=== PATIENT | female | born 1990 | race Caucasian/White ===

== ENCOUNTER 2016-10-05 17:46 | Emergency (ER) | payer OTHER ==
[2016-10-05 18:58] VITALS: BP 112/72
--- NOTE | 2016-10-06 00:12 | UC ---
Santos Urena Adam, scribed for RayneHeather Amadeo, DO on 10/05/16 at 1821 . Dizzy HPI HPI Summary: Pt is a 26 year old female presenting with lightheadedness and near syncope. She thought she was going to faint earlier today but denies LOC. She felt at her baseline (which is marked by fatigue and generalized aches) when she woke up this morning. At 14:00 she developed the lightheadedness after getting out of the shower. She denies room-spinning. Her lightheadedness has since improved but is still present. She states that she drank alcohol last night which she does not usually do. She had 3 drinks and she has been feeling slightly hungover with a WILHELM today. The last time she drank alcohol was 1.5 years ago. She denies fever, chills, CP, SOB, abdominal pain, N/V/D, blood in stool/urine, and any pain in her left neck/jaw/arm. Pt had a PE in 03/2016 and has been on Xarelto since then. She states that they never found a blood clot in her legs. After the PE she went from smoking 7 cigarettes a day to 2 a day. She also states that she was diagnosed with anemia a few weeks ago and is having infusions for the next 5 weeks because of her low iron levels (she is followed by Dr. Chavez in [place]). She will then be going 1x a week for the next 5 weeks to continue the same infusions. She denies any FMHx of PE but does not know her complete FMHx because she was adopted. Her LMP ended yesterday and was normal. It lasts 5 days total, with the first and last day being light and 5 pads a day for the 3 middle days. She denies any significant new stress in her life. - History Of Current Complaint Chief Complaint: UCGeneralIllness Stated Complaint: DIZZINESS, LIGHTHEADED Time Seen by Provider: 10/05/16 18:10 Hx Obtained From: Patient Hx Last Menstrual Period: 09/29/16 ?: No Onset/Duration: Sudden Onset, Lasting Hours, Still Present Timing: Constant Severity Initially: Moderate Severity Currently: Mild Character: Lightheaded Aggravating Factor(s): Nothing Alleviating Factor(s): Rest Associated Signs And Symptoms: Positive: Negative - Allergies/Home Medications Allergies/Adverse Reactions: Allergies Allergy/AdvReac Type Severity Reaction Status Date / Time No Known Allergies Allergy Verified 03/16/16 14:59 Home Medications: Home Medications Xeralto 20 mg DAILY 10/05/16 [History Confirmed 10/05/16] PMH/Surg Hx/FS Hx/Imm Hx - Additional Past Medical History Additional PMH: history of PE in march, severe anemia - Surgical History Surgical History: None - Family History Known Family History: Positive: Other - Adopted. Knows bioloigcal mom and denies any known DVT, PE or lung ca Negative: Cardiac Disease, Hypertension, Diabetes - Social History Occupation: Employed Full-time Lives: With Family - Mother Alcohol Use: Rare Substance Use Type: None Smoking Status (MU): Light Every Day Tobacco Smoker Type: Cigarettes Amount Used/How Often: 5 CIGS PER DAY Cessation Counseling: Counseled 3+Min - 10 Min Review of Systems Constitutional: Fatigue - (chronic) Skin: Negative Eyes: Negative ENT: Negative Respiratory: Negative Cardiovascular: Negative Gastrointestinal: Negative Genitourinary: Negative Motor: Negative Neurovascular: Negative Musculoskeletal: Myalgia - Generalized (chronic) Neurological: Other - Dizziness/lightheadedness Psychological: Negative All Other Systems Reviewed And Are Negative: Yes Physical Exam Triage Information Reviewed: Yes Appearance: Well-Appearing, No Pain Distress, Well-Nourished Vital Signs: Initial Vital Signs Temp 99.3 F 10/05/16 18:00 Pulse 78 10/05/16 18:00 Resp 16 10/05/16 18:00 BP 114/73 10/05/16 18:00 Pulse Ox 100 10/05/16 18:00 Vital Signs Reviewed: Yes Eyes: Positive: Conjunctiva Clear. Negative: Discharge ENT: Positive: Hearing grossly normal. Negative: Muffled/hoarse voice Neck exam: Normal Neck: Positive: Supple Respiratory: Positive: Lungs clear, Normal breath sounds, No respiratory distress, No accessory muscle use Cardiovascular: Positive: RRR, No Murmur Abdomen Description: Positive: Nontender, Soft. Negative: CVA Tenderness (R), CVA Tenderness (L), Distended, Guarding Bowel Sounds: Positive: Present Musculoskeletal Exam: Normal Neurological: Positive: Alert, Muscle Tone Normal, Other: - aox4, strength, sensation and reflexes intact bl, cn 2-12 intact, no cerebellar signs Psychological Exam: Normal Psychological: Positive: Age Appropriate Behavior Skin Exam: Normal Skin: Positive: Other - Warm, dry, normal color Diagnostics - EKG Cardiac Rate: NL - 78 BPM @ 18:11 Cardiac Rhythm: Sinus: Normal - No ST changes Dizzy Course/Dx - Differential Dx/Diagnosis Differential Diagnosis/HQI/PQRI: Anxiety, Medication Reaction, Metabolic Abnormality, Vasovagal Reaction, Other - anemia Provider Diagnoses: Dizziness Discharge - Discharge Plan Condition: Stable Disposition: TRANS HIGHER LVL OF CARE FAC Referrals: No Primary Care Phys,NOPCP [Primary Care Provider] - The documentation as recorded by the Santos pisano Adam accurately reflects the service I personally performed and the decisions made by , Heather Mclain DO.
== END 2016-10-05 19:00 | disposition short-term general hospital (02) ==
LOC: UCEAST 17:46
DX: R42 Dizziness and giddiness (principal); F17.210 Nicotine dependence, cigarettes, uncomplicated
CPT/HCPCS: 93005; 99212; G0463

== ENCOUNTER 2016-10-05 19:23 | Emergency (ER) | payer OTHER ==
[2016-10-05 22:55] LABS: Hematocrit 36 % (35-47); Hemoglobin 11.2 g/dl (12.0-16.0); Mean Corpuscular HGB Conc 31 g/dl (31-36); Mean Corpuscular Hemoglobin 21 pg (27-31); Mean Corpuscular Volume 67 fL (80-97); Mean Platelet Volume 9 um3 (7.4-10.4); Red Blood Count 5.39 10^6/ul (4.0-5.4); Red Cell Distribution Width 18 % (10.5-15); White Blood Count 5.6 10^3/ul (3.5-10.8)
[2016-10-05 22:56] LABS: Comments Flag Yes
[2016-10-05 22:57] LABS: Add Diff/Slide Review? Slide Review Added
[2016-10-05 23:10] LABS: ALT 9 U/L (7-52); AST 14 U/L (13-39); Albumin 4.9 g/dL (3.2-5.2); Alkaline Phosphatase 33 U/L (34-104); Anion Gap 7 mmol/L (2-11); Blood Urea Nitrogen 8 mg/dL (6-24); CO2 Carbon Dioxide 29 mmol/L (22-32); Calcium 10.3 mg/dL (8.6-10.3); Chloride 102 mmol/L (101-111); EGFR African American 99.4 (>60); EGFR Non-African American 77.3 (>60); Glucose 123 mg/dL (70-100); Potassium 3.6 mmol/L (3.5-5.0); Sodium 138 mmol/L (133-145); Total Protein 7.9 g/dL (6.4-8.9)
[2016-10-05 23:27] LABS: Hypochromasia 1+; Microcytosis 1+; Spherocytes 1+
[2016-10-06 00:40] VITALS: BP 105/69
--- NOTE | 2016-10-06 00:51 | ED ---
Fabrice Urena Rebecca, scribed for Damon Chin on 10/05/16 at 2233 . Dizziness - HPI Summary HPI Summary: Pt is a 26 y/o F who presents to ED c/o mild dizziness. Dizziness began suddenly today at 1400 and has been intermittent since onset. Dizziness characterized as lightheadedness. Sx aggravated and alleviated by nothing. Denies CP, SOB, abd pain, bleeding, melena, fever, cough. Reports drinking alcohol yesterday for the first time in a while, so perhaps that is contributing to sx. Pt referred to ED from [facility] care today. PMHx PE and anemia. - History Of Current Complaint Chief Complaint: EDDizziness Stated Complaint: DIZZY/ CONV CARE Time Seen by Provider: 10/05/16 22:24 Hx Obtained From: Patient Onset/Duration: Suddenly Timing: Constant Severity Initially: Mild Severity Currently: Mild Character: Lightheaded Aggravating Factor(s): Nothing Alleviating Factor(s): Nothing Associated Signs And Symptoms: Positive: Negative. Negative: Chest Pain, SOB, Fever, Blood In Stool - Allergies/Home Medications Allergies/Adverse Reactions: Allergies Allergy/AdvReac Type Severity Reaction Status Date / Time No Known Allergies Allergy Verified 03/16/16 14:59 PMH/Surg Hx/FS Hx/Imm Hx Endocrine/Hematology History: Reports: Hx Anemia Respiratory History: Reports: Hx Pulmonary Embolism Infectious Disease History: No Infectious Disease History: Denies: Traveled Outside the [place] in Last 30 Days - Family History Known Family History: Positive: Other - Adopted. Knows bioloigcal mom and denies any known DVT, PE or lung ca - Social History Alcohol Use: Rare Substance Use Type: Reports: None Smoking Status (MU): Light Every Day Tobacco Smoker Type: Cigarettes Amount Used/How Often: 5 CIGS PER DAY Review of Systems Negative: Fever Negative: Chest Pain Negative: Shortness Of Breath, Cough Negative: Abdominal Pain Positive: other - Denies melena and bleeding Neurological: Other - Dizziness (lightheadedness) All Other Systems Reviewed And Are Negative: Yes Physical Exam Triage Information Reviewed: Yes Vital Signs On Initial Exam: Initial Vitals Temp Pulse Resp BP Pulse Ox 99.5 F 84 16 111/78 100 10/05/16 20:02 10/05/16 20:02 10/05/16 20:02 10/05/16 20:02 10/05/16 20:02 Vital Signs Reviewed: Yes Appearance: Positive: Well-Appearing, No Pain Distress Skin: Positive: Warm, Skin Color Reflects Adequate Perfusion, Dry Head/Face: Positive: Normal Head/Face Inspection Eyes: Positive: EOMI, LAURITA ENT: Positive: Normal ENT inspection Neck: Positive: Supple, Nontender Respiratory/Lung Sounds: Positive: Clear to Auscultation, Breath Sounds Present Cardiovascular: Positive: RRR, Pulses are Symmetrical in both Upper and Lower Extremities Abdomen Description: Positive: Nontender, Soft Bowel Sounds: Positive: Present Neurological: Positive: Normal, Sensory/Motor Intact, Alert, Oriented to Person Place, Time Diagnostics - Vital Signs Vital Signs Temp Pulse Resp BP Pulse Ox 10/05/16 20:02 99.5 F 84 16 111/78 100 - Laboratory Result Diagrams: 10/05/16 22:40 10/05/16 22:40 Lab Statement: Any lab studies that have been ordered have been reviewed, and results considered in the medical decision making process. - EKG 2019 Cardiac Rate: NL - 77 bpm EKG Rhythm: Sinus Rhythm EKG Interpretation: No acute changes Dizzy Course/Dx - Course Assessment/Plan: Pt is a 26 y/o F referred from [facility] with a CC of intermittent dizziness characterized as lightheadedness since 1400 today. Denies CP, SOB, abd pain, bleeding, melena, fever, cough. Pt will be D/C to home with a dx of dizziness. - Diagnoses Provider Diagnoses: Dizziness Discharge - Discharge Plan Condition: Stable Disposition: HOME Patient Education Materials: Dizziness (ED) Referrals: Karol Stack MD [Primary Care Provider] - 3 Days (Follow up with your primary care physician in the next 3 days. ) The documentation as recorded by the Fabrice pisano Rebecca accurately reflects the service I personally performed and the decisions made by , Damon Chin.
== END 2016-10-06 00:40 | disposition home or self-care (01) ==
LOC: ED 19:23
DX: R42 Dizziness and giddiness (principal); F17.210 Nicotine dependence, cigarettes, uncomplicated
CPT/HCPCS: 36415; 80053; 84484; 84702; 85025; 93005; 99282

== ENCOUNTER 2016-11-14 14:33 | Emergency (ER) | payer OTHER ==
[2016-11-14] MEDS ORDERED: NS 0.9% 1000 ML* 1,000 ML IV ONE (16:08)
[2016-11-14 16:15] LABS: Hematocrit 33 % (35-47); Mean Corpuscular HGB Conc 31 g/dl (31-36); Mean Corpuscular Hemoglobin 21 pg (27-31); Mean Platelet Volume 8 um3 (7.4-10.4); Red Blood Count 4.73 10^6/ul (4.0-5.4); Red Cell Distribution Width 19 % (10.5-15); White Blood Count 5.2 10^3/ul (3.5-10.8)
[2016-11-14 16:24] LABS: Comments Flag Yes; Mean Corpuscular Volume 69 fL (80-97)
[2016-11-14 16:42] LABS: ALT 7 U/L (7-52); AST 13 U/L (13-39); Albumin 4.5 g/dL (3.2-5.2); Alkaline Phosphatase 31 U/L (34-104); Anion Gap 4 mmol/L (2-11); BUN/Creatinine Ratio 5.4 (8-20); Blood Urea Nitrogen 5 mg/dL (6-24); C Reactive Protein < 1.00 mg/L (< 5.00); CO2 Carbon Dioxide 32 mmol/L (22-32); Calcium 9.6 mg/dL (8.6-10.3); Chloride 101 mmol/L (101-111); EGFR African American 95.7 (>60); EGFR Non-African American 74.4 (>60); Globulin 2.5 g/dL (2-4); Glucose 102 mg/dL (70-100); Potassium 3.7 mmol/L (3.5-5.0); Sodium 137 mmol/L (133-145)
[2016-11-14 17:03] LABS: TSH (Thyroid Stimulating Horm) 1.73 mcIU/mL (0.34-5.60)
--- NOTE | 2016-11-14 18:41 | ED ---
Antonio Urena Billy, scribed for Ludwig Siddiqi MD on 11/14/16 at 1540 . HPI Chest Pain - HPI Summary HPI Summary: Patient is a 26 year-old female coming to [facility] for evaluation of chest heaviness since this morning. Patient reports mild shortness of breath, but she believes that this may be secondary to an URI that she has had for the last several days. Denies any leg pain or swelling. Patient has a history of anemia as well as a prior PE in March 2016. She takes Xarelto. She states that her PE was diagnosed with a positive D-Dimer and positive imaging by CTA chest. Patient does not use hormonal control medication, nor did she use any at the time of her previous diagnosis. She says that her current chest pressure/ heaviness is not as severe as her previous PE. - History of Current Complaint Chief Complaint: EDChestPainROMI Time Seen by Provider: 11/14/16 15:30 Hx Obtained From: Patient Onset/Duration: Started Hours Ago Timing: Constant Initial Severity: Moderate Current Severity: Moderate Chest Pain Location: Diffuse Chest Pain Radiates: No Character: Heaviness, Pressure/Squeezing Aggravating Factor(s): Nothing Alleviating Factor(s): Nothing Associated Signs and Symptoms: Positive: Shortness of Breath. Negative: Calf Pain/Swelling - Allergy/Home Medications Allergies/Adverse Reactions: Allergies Allergy/AdvReac Type Severity Reaction Status Date / Time No Known Allergies Allergy Verified 03/16/16 14:59 PMH/Surg Hx/FS Hx/Imm Hx Endocrine/Hematology History: Reports: Hx Anemia Respiratory History: Reports: Hx Pulmonary Embolism Infectious Disease History: No Infectious Disease History: Denies: Traveled Outside the [place] in Last 30 Days - Family History Known Family History: Positive: Other - Adopted. Knows bioloigcal mom and denies any known DVT, PE or lung ca Negative: Cardiac Disease, Hypertension, Diabetes - Social History Alcohol Use: Rare Substance Use Type: Reports: None Smoking Status (MU): Light Every Day Tobacco Smoker Type: Cigarettes Amount Used/How Often: 5 CIGS PER DAY Review of Systems Positive: Chest Pain - pressure Positive: Shortness Of Breath, Other - URI Negative: Myalgia, Edema All Other Systems Reviewed And Are Negative: Yes Physical Exam Triage Information Reviewed: Yes Vital Signs On Initial Exam: Initial Vitals Temp Pulse Resp BP Pulse Ox 98.2 F 87 16 107/62 100 11/14/16 14:34 11/14/16 14:34 11/14/16 14:34 11/14/16 14:34 11/14/16 14:34 Vital Signs Reviewed: Yes Appearance: Positive: Well-Appearing, No Pain Distress Skin: Positive: Warm, Skin Color Reflects Adequate Perfusion, Dry Head/Face: Positive: Normal Head/Face Inspection Eyes: Positive: EOMI, LAURITA ENT: Positive: Normal ENT inspection Neck: Positive: Supple, Nontender Respiratory/Lung Sounds: Positive: Clear to Auscultation, Breath Sounds Present Cardiovascular: Positive: RRR Abdomen Description: Positive: Nontender, Soft Musculoskeletal: Positive: Normal, Strength/ROM Intact Neurological: Positive: Normal, Sensory/Motor Intact, Alert, Oriented to Person Place, Time Psychiatric: Positive: Affect/Mood Appropriate Diagnostics - Vital Signs Vital Signs Temp Pulse Resp BP Pulse Ox 11/14/16 14:34 98.2 F 87 16 107/62 100 - Laboratory Lab Results: Lab Results 11/14/16 11/14/16 11/14/16 Range/Units 16:05 16:05 16:05 WBC 5.2 (3.5-10.8) 10^3/ul RBC 4.73 (4.0-5.4) 10^6/ul Hgb 10.0 L (12.0-16.0) g/dl Hct 33 L (35-47) % MCV 69 L (80-97) fL MCH 21 L (27-31) pg MCHC 31 (31-36) g/dl RDW 19 H (10.5-15) % Plt Count 186 (150-450) 10^3/ul MPV 8 (7.4-10.4) um3 Neut % (Auto) 70.6 (38-83) % Lymph % (Auto) 21.5 L (25-47) % [place] % (Auto) 6.0 (1-9) % Eos % (Auto) 1.3 (0-6) % Baso % (Auto) 0.6 (0-2) % Absolute Neuts (auto) 3.7 (1.5-7.7) 10^3/ul Absolute Lymphs (auto) 1.1 (1.0-4.8) 10^3/ul Absolute Monos (auto) 0.3 (0-0.8) 10^3/ul Absolute Eos (auto) 0.1 (0-0.6) 10^3/ul Absolute Basos (auto) 0 (0-0.2) 10^3/ul Absolute Nucleated RBC 0 10^3/ul Nucleated RBC % 0 INR (Anticoag Therapy) 0.91 (0.89-1.11) APTT 30.4 (26.0-36.3) seconds D-Dimer, Quantitative < 200 (Less Than 230) ng/mL Sodium 137 (133-145) mmol/L Potassium 3.7 (3.5-5.0) mmol/L Chloride 101 (101-111) mmol/L Carbon Dioxide 32 (22-32) mmol/L Anion Gap 4 (2-11) mmol/L BUN 5 L (6-24) mg/dL Creatinine 0.92 (0.51-0.95) mg/dL Est GFR ( Amer) 95.7 (>60) Est GFR (Non-Af Amer) 74.4 (>60) BUN/Creatinine Ratio 5.4 L (8-20) Glucose 102 H (70-100) mg/dL Calcium 9.6 (8.6-10.3) mg/dL Total Bilirubin 0.30 (0.2-1.0) mg/dL AST 13 (13-39) U/L ALT 7 (7-52) U/L Alkaline Phosphatase 31 L (34-104) U/L Troponin I 0.00 (<0.04) ng/mL C-Reactive Protein < 1.00 (< 5.00) mg/L Total Protein 7.0 (6.4-8.9) g/dL Albumin 4.5 (3.2-5.2) g/dL Globulin 2.5 (2-4) g/dL Albumin/Globulin Ratio 1.8 (1-3) TSH 1.73 (0.34-5.60) mcIU/mL Beta HCG, Quant < 0.60 mIU/mL Result Diagrams: 11/14/16 16:05 11/14/16 16:05 Lab Statement: Any lab studies that have been ordered have been reviewed, and results considered in the medical decision making process. - Radiology CXR Xray Interpretation: No Acute Changes Radiology Interpretation Completed By: ED Physician Re-Evaluation - Re-Evaluation First Eval Re-Evaluation Time: 18:31 Comment: Labs and imaging discussed and reviewed. Chest Pain Course/Dx - Course Course Of Treatment: Patient states that she would be comfortable forgoing the CTA chest if the D-dimer returned negative. Assessment/Plan: DISCUSSED RESULTS WITH PATIENT. VSS. DISCUSSED CTA CHEST WITH PATIENT. WITH VSS AND NEGATIVE DDIMER, PATIENT FEELS COMFORTABLE WITHOUT CTA. DISCHARGE HOME STABLE. NO CRITICAL CARE TIME. - Diagnoses Provider Diagnoses: Dyspnea, Chest pressure Discharge - Discharge Plan Condition: Stable Disposition: HOME Patient Education Materials: Dyspnea (ED) Referrals: Karol Stack MD [Primary Care Provider] - Additional Instructions: FOLLOW UP WITH YOUR DOCTOR FOR YOUR CHEST PRESSURE AND SHORTNESS OF BREATH. RETURN TO THE EMERGENCY DEPARTMENT FOR ANY WORSENING OF YOUR CONDITION; CHEST PAIN, SHORTNESS OF BREATH, YOU FEEL ILL OR QUESTIONS OR CONCERNS. The documentation as recorded by the Antonio pisano Billy accurately reflects the service I personally performed and the decisions made by me, Ludwig Siddiqi MD.
--- NOTE | 2016-11-14 18:47 | RAD ---
INDICATION: "Chest feels heavy" COMPARISON: None. TECHNIQUE: Single AP portable view of the chest was obtained. FINDINGS: Image quality is compromised due to the relative inferiority of a portable chest x-ray. The heart and mediastinum exhibit normal size and contour. The lungs are grossly clear. There is no evidence of a large pleural effusion. Visualized bones are normal for the patient's age. IMPRESSION: No radiographic evidence for acute cardiopulmonary abnormality on this portable chest x-ray.
[2016-11-14 19:02] VITALS: BP 100/64
== END 2016-11-14 19:03 | disposition home or self-care (01) ==
LOC: ED 14:33
DX: J06.9 Acute upper respiratory infection, unspecified (principal); R07.9 Chest pain, unspecified; R06.00 Dyspnea, unspecified; R06.02 Shortness of breath; F17.210 Nicotine dependence, cigarettes, uncomplicated
CPT/HCPCS: 36415; 71010; 80053; 84443; 84484; 84702; 85025; 85379; 85610; 85730; 86140; 96360; 99283

== ENCOUNTER 2018-06-19 21:36 | Emergency (ER) | payer SELFPAY ==
[2018-06-19 22:33] LABS: ABS Basophils 0 10^3/ul (0-0.2); ABS Eosinophils 0 10^3/ul (0-0.6); ABS Lymphocytes 2.4 10^3/ul (1.0-4.8); ABS Monocytes 0.3 10^3/ul (0-0.8); ABS Neutrophils 2.3 10^3/ul (1.5-7.7); ABS Nucleated RBC 0 10^3/ul; Eosinophil % 0.8 % (0-6); Hematocrit 48 % (35-47); Hemoglobin 16.5 g/dl (12.0-16.0); Lymphocyte % 48.1 % (25-47); Mean Corpuscular HGB Conc 34 g/dl (31-36); Mean Corpuscular Hemoglobin 35 pg (27-31); Mean Corpuscular Volume 103 fL (80-97); Mean Platelet Volume 6.5 fL (7.4-10.4); Nucleated Red Blood Cells % 0.1; Platelet Count 252 10^3/ul (150-450); Red Blood Count 4.69 10^6/ul (4.00-5.40); Red Cell Distribution Width 15 % (10.5-15)
[2018-06-19 22:59] LABS: EGFR Non-African American 70.6 (>60)
[2018-06-19] MEDS ORDERED: NS 0.9% 1000 ML* 2,000 ML IV ONE (23:17)
[2018-06-19] MEDS ORDERED: Metoclopramide IV* 5 MG/ML 2 ML VIAL IV SLOW PU ONE (23:18)
[2018-06-19] MEDS ORDERED: Thiamine IV* 100 MG, Folic Acid IV* 1 MG, Multiple Vitamin IV ADULT* 10 ML in NS 0.9% 1... IV ONE (23:18)
[2018-06-19] MEDS ORDERED: Pantoprazole IV* 40 MG IV ONE (23:18)
[2018-06-20 00:52] LABS: Urine Appearance Cloudy; Urine Blood Negative (Negative); Urine Color Yellow; Urine Ketones Negative (Negative); Urine Protein Negative (Negative); Urine Specific Gravity 1.019 (1.010-1.030); Urine Urobilinogen Negative (Negative)
--- NOTE | 2018-06-20 02:14 | ED ---
Complex/Multi-Sys Presentation - HPI Summary HPI Summary: A 28 y/o female presents to the ED c/o N/V since 06/13/2018. She also c/o diarrhea, heart burn and vaginal bleeding. The pt claims that she is about 3 months with her LNMP being about 10 weeks ago. /A1. The pt states that she had a pulmonary embolism February 2016. She admits to drinking EtOH every day, even during the day. She has not been treated for EtOH abuse. She denies drug or medication abuse. Multiple times the patient's mother would try to speak but she kept telling her mother to "shut up otherwise I'll kick you out". - History Of Current Complaint Chief Complaint: EDOBProblems Time Seen by Provider: 06/19/18 23:08 Hx Obtained From: Patient, Family/Analytics Senior Manager Onset/Duration: Sudden Onset, Lasting Weeks, Still Present Severity Currently: Moderate Severity Initially: Moderate Associated Signs And Symptoms: Positive: Nausea, Vomiting, Other - diarrhea - Allergies/Home Medications Allergies/Adverse Reactions: Allergies Allergy/AdvReac Type Severity Reaction Status Date / Time No Known Allergies Allergy Verified 06/19/18 21:42 PMH/Surg Hx/FS Hx/Imm Hx Endocrine/Hematology History: Reports: Hx Anemia Respiratory History: Reports: Hx Pulmonary Embolism Infectious Disease History: No Infectious Disease History: Denies: Traveled Outside the [place] in Last 30 Days - Family History Known Family History: Positive: Other - Adopted. Knows bioloigcal mom and denies any known DVT, PE or lung ca Negative: Cardiac Disease, Hypertension, Diabetes - Social History Alcohol Use: Daily Substance Use Type: Reports: None Smoking Status (MU): Light Every Day Tobacco Smoker Type: Cigarettes Amount Used/How Often: 5 CIGS PER DAY Review of Systems Negative: Fever Positive: Vomiting, Diarrhea, Nausea Positive: other - Positive: Vaginal bleeding Positive: Other - EtOH abuse All Other Systems Reviewed And Are Negative: Yes Physical Exam - Summary Physical Exam Summary: VITAL SIGNS: Reviewed. GENERAL: Patient is a well-developed and nourished FEMALE who is lying comfortable in the stretcher. Patient is not in any acute respiratory distress, Pt has EtOH in breath. HEAD AND FACE: No signs of trauma. No ecchymosis, hematomas or skull depressions. No sinus tenderness. EYES: PERRLA, EOMI x 2, No injected conjunctiva, no nystagmus. EARS: Hearing grossly intact. Ear canals and tympanic membranes are within normal limits. MOUTH: Oropharynx within normal limits. NECK: Supple, trachea is midline, no adenopathy, no JVD, no carotid bruit, no c- spine tenderness, neck with full ROM. CHEST: Symmetric, no tenderness at palpation LUNGS: Clear to auscultation bilaterally. No wheezing or crackles. CVS: Regular rate and rhythm, S1 and S2 present, no murmurs or gallops appreciated. ABDOMEN: Soft, non-tender. No signs of distention. No rebound no guarding, and no masses palpated. Bowel sounds are normal. EXTREMITIES: FROM in all major joints, no edema, no cyanosis or clubbing. NEURO: Alert and oriented x 3. Mild slurred speech. SKIN: Dry and warm Triage Information Reviewed: Yes Vital Signs On Initial Exam: Initial Vitals Temp Pulse Resp BP Pulse Ox 97.5 F 132 16 123/88 100 06/19/18 21:40 06/19/18 21:40 06/19/18 21:40 06/19/18 21:40 06/19/18 21:40 Vital Signs Reviewed: Yes Diagnostics - Vital Signs Vital Signs Temp Pulse Resp BP Pulse Ox 06/20/18 00:00 116 112/83 100 06/19/18 23:32 115 100 06/19/18 23:30 120 113/80 100 06/19/18 21:40 97.5 F 132 16 123/88 100 - Laboratory Lab Results: Lab Results 06/19/18 06/19/18 06/19/18 Range/Units 22:20 22:20 23:29 WBC 5.0 (3.5-10.8) 10^3/ul RBC 4.69 (4.00-5.40) 10^6/ul Hgb 16.5 H (12.0-16.0) g/dl Hct 48 H (35-47) % MCV 103 H (80-97) fL MCH 35 H (27-31) pg MCHC 34 (31-36) g/dl RDW 15 (10.5-15) % Plt Count 252 (150-450) 10^3/ul MPV 6.5 L (7.4-10.4) fL Neut % (Auto) 45.2 (38-83) % Lymph % (Auto) 48.1 H (25-47) % Clinch % (Auto) 5.1 (0-7) % Eos % (Auto) 0.8 (0-6) % Baso % (Auto) 0.8 (0-2) % Absolute Neuts (auto) 2.3 (1.5-7.7) 10^3/ul Absolute Lymphs (auto) 2.4 (1.0-4.8) 10^3/ul Absolute Monos (auto) 0.3 (0-0.8) 10^3/ul Absolute Eos (auto) 0 (0-0.6) 10^3/ul Absolute Basos (auto) 0 (0-0.2) 10^3/ul Absolute Nucleated RBC 0 10^3/ul Nucleated RBC % 0.1 Sodium 145 (135-145) mmol/L Potassium 3.7 (3.5-5.0) mmol/L Chloride 100 L (101-111) mmol/L Carbon Dioxide 31 (22-32) mmol/L Anion Gap 14 H (2-11) mmol/L BUN 6 (6-24) mg/dL Creatinine 0.95 (0.51-0.95) mg/dL Est GFR ( Amer) 85.4 (>60) Est GFR (Non-Af Amer) 70.6 (>60) BUN/Creatinine Ratio 6.3 L (8-20) Glucose 115 H (70-100) mg/dL Calcium 9.7 (8.6-10.3) mg/dL Magnesium 2.4 (1.9-2.7) mg/dL Beta HCG, Quant < 0.60 mIU/mL Urine Color Urine Appearance Urine pH (5-9) Ur Specific [place] (1.010-1.030) Urine Protein (Negative) Urine Ketones (Negative) Urine Blood (Negative) Urine Nitrate (Negative) Urine Bilirubin (Negative) Urine Urobilinogen (Negative) Ur Leukocyte Esterase (Negative) Urine Glucose (Negative) Urine Opiates Screen (None Detect) Ur Barbiturates Screen (None Detect) Ur Phencyclidine Scrn (None Detect) Ur Amphetamines Screen (None Detect) U Benzodiazepines Scrn (None Detect) Urine Cocaine Screen (None Detect) U Cannabinoids Screen (None Detect) Serum Alcohol 327 H (<10) mg/dL 11/08/18 11/08/18 Range/Units 00:21 00:21 WBC (3.5-10.8) 10^3/ul RBC (4.00-5.40) 10^6/ul Hgb (12.0-16.0) g/dl Hct (35-47) % MCV (80-97) fL MCH (27-31) pg MCHC (31-36) g/dl RDW (10.5-15) % Plt Count (150-450) 10^3/ul MPV (7.4-10.4) fL Neut % (Auto) (38-83) % Lymph % (Auto) (25-47) % Clinch % (Auto) (0-7) % Eos % (Auto) (0-6) % Baso % (Auto) (0-2) % Absolute Neuts (auto) (1.5-7.7) 10^3/ul Absolute Lymphs (auto) (1.0-4.8) 10^3/ul Absolute Monos (auto) (0-0.8) 10^3/ul Absolute Eos (auto) (0-0.6) 10^3/ul Absolute Basos (auto) (0-0.2) 10^3/ul Absolute Nucleated RBC 10^3/ul Nucleated RBC % Sodium (135-145) mmol/L Potassium (3.5-5.0) mmol/L Chloride (101-111) mmol/L Carbon Dioxide (22-32) mmol/L Anion Gap (2-11) mmol/L BUN (6-24) mg/dL Creatinine (0.51-0.95) mg/dL Est GFR ( Amer) (>60) Est GFR (Non-Af Amer) (>60) BUN/Creatinine Ratio (8-20) Glucose (70-100) mg/dL Calcium (8.6-10.3) mg/dL Magnesium (1.9-2.7) mg/dL Beta HCG, Quant mIU/mL Urine Color Yellow Urine Appearance Cloudy Urine pH 5.0 (5-9) Ur Specific [place] 1.019 (1.010-1.030) Urine Protein Negative (Negative) Urine Ketones Negative (Negative) Urine Blood Negative (Negative) Urine Nitrate Negative (Negative) Urine Bilirubin Negative (Negative) Urine Urobilinogen Negative (Negative) Ur Leukocyte Esterase Negative (Negative) Urine Glucose Negative (Negative) Urine Opiates Screen None detected (None Detect) Ur Barbiturates Screen None detected (None Detect) Ur Phencyclidine Scrn None detected (None Detect) Ur Amphetamines Screen None detected (None Detect) U Benzodiazepines Scrn None detected (None Detect) Urine Cocaine Screen None detected (None Detect) U Cannabinoids Screen None detected (None Detect) Serum Alcohol (<10) mg/dL Result Diagrams: 06/19/18 22:20 06/19/18 22:20 Lab Statement: Any lab studies that have been ordered have been reviewed, and results considered in the medical decision making process. Complex Multi-Symp Course/Dx Course Of Treatment: A 28 y/o female presents to the ED c/o N/V since 2017. Her serum alcohol was 327 H. Symptoms likely due to EtoH. After medication she is feeling better. She will be diagnosed with alcohol intoxication and alcohol gastritis. She will be discharged and is agreeable to this plan. - Diagnoses Provider Diagnoses: Alcoholic gastritis, Alcohol intoxication Discharge - Sign-Out/Discharge Documenting (check all that apply): Patient Departure - DC - Discharge Plan Condition: Stable Disposition: HOME Prescriptions: Metoclopramide TAB* [Reglan TAB*] 10 mg PO Q6H PRN #20 tab PRN Reason: Nausea/Vomiting Pantoprazole Sodium [Protonix] 40 mg PO AC #30 granpkt. Patient Education Materials: Gastritis (ED), Alcohol Intoxication (ED) Referrals: Karol Stack MD [Primary Care Provider] - (1-2 days) Additional Instructions: RETURN TO THE EMERGENCY DEPARTMENT FOR CHANGING OR WORSENING SYMPTOMS. FOLLOW UP WITH PCP IN 1-2 DAYS. - Attestation Statements Document Initiated by Scribe: Yes Documenting Scribe: Arturo Mclain Provider For Whom Scribe is Documenting (Include Credential): Liliana Poon MD Scribe Attestation: Arturo Urena, scribed for Liliana Poon MD on 06/20/18 at 0404.
[2018-06-20 03:37] VITALS: BP 97/73
== END 2018-06-20 03:39 | disposition home or self-care (01) ==
LOC: ED 21:36
DX: K29.20 Alcoholic gastritis without bleeding (principal); F10.129 Alcohol abuse with intoxication, unspecified; N93.9 Abnormal uterine and vaginal bleeding, unspecified; Z86.711 Personal history of pulmonary embolism; F17.210 Nicotine dependence, cigarettes, uncomplicated
CPT/HCPCS: 36415; 80048; 80307; 80320; 81003; 83735; 84702; 85025; 96365; 96366; 96375; 99284; G0480; J2765; J3411

== ENCOUNTER 2018-07-15 17:36 | Inpatient (IN) | payer SELFPAY ==
--- NOTE | 2018-07-15 21:16 | ED ---
GI/ HPI - HPI Summary HPI Summary: This patient is a 28 year old female presenting to [facility] with a chief complaint of vomiting blood since 3 weeks ago. Patient states that she was seen in the ED last month for similar sx. Patient states that the vomit is dark red and the accompanying pain makes her unable to sleep. The pain is localized in her mid abd and radiates in a band to her bilateral flanks and to her back. Her flank pain is described as stabbing and her back pain is described as dull. The pain is rated 7/10 in severity. Symptoms aggravated by nothing. Symptoms alleviated by nothing. Patient additionally reports constipation for the past 2 days and blurry vision and fatigue from lack of sleep. Patient is currently on xarelto for a past hx of pulmonary emboli. - History of Current Complaint Chief Complaint: EDNauseaVomitDiarrh Time Seen by Provider: 07/15/18 21:00 Stated Complaint: CHEST PAIN/NAUSEA/DEHYDRATION Hx Obtained From: Patient Hx Last Menstrual Period: 09/29/16 Onset/Duration: Started Weeks Ago, Still Present Timing: Constant Severity: Moderate Pain Intensity: 7 Location of Pain: Diffuse, Radiates to:, Flank, Other - back Pain Characteristics: Sharp, Dull Associated Signs and Symptoms: Positive: Other: - constipation, blurry vision, fatigue, vomiting Aggravating Factor(s): Nothing Alleviating Factor(s): Nothing - Allergy/Home Medications Allergies/Adverse Reactions: Allergies Allergy/AdvReac Type Severity Reaction Status Date / Time No Known Allergies Allergy Verified 07/15/18 18:03 PMH/Surg Hx/FS Hx/Imm Hx Previously Healthy: No Endocrine/Hematology History: Reports: Hx Anemia Respiratory History: Reports: Hx Pulmonary Embolism Opthamlomology History: Denies: Hx Legally Blind EENT History: Denies: Hx Deafness Infectious Disease History: No Infectious Disease History: Denies: Traveled Outside the [place] in Last 30 Days - Family History Known Family History: Positive: Other - Adopted. Knows bioloigcal mom and denies any known DVT, PE or lung ca Negative: Cardiac Disease, Hypertension, Diabetes - Social History Alcohol Use: None Hx Substance Use: No Substance Use Type: Reports: None Hx Tobacco Use: Yes Smoking Status (MU): Light Every Day Tobacco Smoker Type: Cigarettes Amount Used/How Often: 5 CIGS PER DAY Review of Systems Positive: Fatigue. Negative: Fever Positive: Blurred Vision Positive: Abdominal Pain, Vomiting - blood, Other - constipation All Other Systems Reviewed And Are Negative: Yes Physical Exam - Summary Physical Exam Summary: VITAL SIGNS: Reviewed. GENERAL: Patient is a well-developed and nourished female who is lying mildly anxiously in the stretcher. Patient is not in any acute respiratory distress. HEAD AND FACE: No signs of trauma. No ecchymosis, hematomas or skull depressions. No sinus tenderness. EYES: PERRLA, EOMI x 2, No injected conjunctiva, no nystagmus. EARS: Hearing grossly intact. Ear canals and tympanic membranes are within normal limits. MOUTH: Oropharynx within normal limits. NECK: Supple, trachea is midline, no adenopathy, no JVD, no carotid bruit, no c- spine tenderness, neck with full ROM. CHEST: Symmetric, no tenderness at palpation LUNGS: Clear to auscultation bilaterally. No wheezing or crackles. CVS: Regular rate and rhythm, S1 and S2 present, no murmurs or gallops appreciated. ABDOMEN: Epigastric tenderness, RUQ tenderness. No rebound no guarding, and no masses palpated. Bowel sounds are normal. EXTREMITIES: FROM in all major joints, no edema, no cyanosis or clubbing. RECTAL: external hemorrhoids, tinge of blood on finger NEURO: Alert and oriented x 3. No acute neurological deficits. Speech is normal and follows commands. SKIN: Dry and warm Triage Information Reviewed: Yes Vital Signs On Initial Exam: Initial Vitals Temp Pulse Resp BP Pulse Ox 98 F 133 18 113/87 97 07/15/18 17:58 07/15/18 17:58 07/15/18 17:58 07/15/18 17:58 07/15/18 17:58 Vital Signs Reviewed: Yes Diagnostics - Vital Signs Vital Signs Temp Pulse Resp BP Pulse Ox 07/15/18 19:54 98 F 141 20 111/72 95 07/15/18 17:58 98 F 133 18 113/87 97 - Laboratory Result Diagrams: 07/15/18 21:29 07/15/18 21:29 Lab Statement: Any lab studies that have been ordered have been reviewed, and results considered in the medical decision making process. - CT CT ABD/Pelvis CT Interpretation Completed By: Radiologist Summary of CT Findings: 1. There is wall thickening in the distal esophagus, cannot exclude. esophagitis. 2. There is thickening of the pancreas diffusely with possible subtle. peripancreatic fat stranding suspicious for mild acute pancreatitis. 3. There is normal enhancement and function of the kidneys. No visible calculi. ED physician has reviewed this radiology report. - EKG 2141 Cardiac Rate: Tachycardia EKG Rhythm: Sinus Tachycardia - at 101 BPM Summary of EKG Findings: Normal axis. Normal interval. No ischemic changes - Additional Comments Diagnostic Additional Comments: US gallbladder reveals, per radiology, 1. The pancreas is heterogeneous and appears thickened, cannot exclude acute pancreatitis. 2. There is echogenic sludge and possible fine layering calculi in the gallbladder lumen consistent with cholelithiasis. No abnormal gallbladder wall thickening or pericholecystic fluid and negative sonographic Owen sign therefore not specific for acute cholecystitis. ED physician has reviewed this radiology report. GIGU Course/Dx - Course Assessment/Plan: This patient is a 28 year old female presenting to [facility] with a chief complaint of vomiting blood since 3 weeks ago. Patient states that she was seen in the ED last month for similar sx. Patient states that the vomit is dark red and the accompanying pain makes her unable to sleep. The pain is localized in her mid abd and radiates in a band to her bilateral flanks and to her back. Her flank pain is described as stabbing and her back pain is described as dull. The pain is rated 7/10 in severity. Symptoms aggravated by nothing. Symptoms alleviated by nothing. Patient additionally reports constipation for the past 2 days and blurry vision and fatigue from lack of sleep. Patient is currently on xarelto for a past hx of pulmonary emboli. An EKG reveals Normal axis. Normal interval. No ischemic changes. US gallbladder reveals, per radiology, 1. The pancreas is heterogeneous and appears thickened, cannot exclude acute. pancreatitis. 2. There is echogenic sludge and possible fine layering calculi in the. gallbladder lumen consistent with cholelithiasis. No abnormal gallbladder wall. thickening or pericholecystic fluid and negative sonographic Owen sign. therefore not specific for acute cholecystitis. CT ABD/Pelvis reveals, 1. There is wall thickening in the distal esophagus, cannot exclude. esophagitis. 2. There is thickening of the pancreas diffusely with possible subtle. peripancreatic fat stranding suspicious for mild acute pancreatitis. 3. There is normal enhancement and function of the kidneys. No visible calculi. In the ED the patient was given IV fluids, thiamine, protonix, morphine, reglan, and potassium chloride. Bloodwork obtained. The patient will be admitted to Dr. Burnham - Diagnoses Provider Diagnoses: Acute pancreatitis, Alcohol abuse, Gastritis - Physician Notifications Discussed Care Of Patient With: Ritika Burnham Time Discussed With Above Provider: 01:21 Instructed by Provider To: Admit As Inpatient Discharge - Sign-Out/Discharge Documenting (check all that apply): Patient Departure - admitted - Discharge Plan Condition: Fair Disposition: ADMITTED TO [facility] Referrals: Karol Stack MD [Primary Care Provider] - - Attestation Statements Document Initiated by Scribe: Yes Documenting Scribe: Troy Ray Provider For Whom Scribe is Documenting (Include Credential): Liliana Poon MD Scribe Attestation: Troy Urena, scribed for Liliana Poon MD on 07/16/18 at 0122. Status of Scribe Document: Ready
[2018-07-15] MEDS ORDERED: NS 0.9% 1000 ML* 2,000 ML IV ONE (21:17)
[2018-07-15] MEDS ORDERED: Pantoprazole IV* 40 MG IV ONE (21:17)
[2018-07-15] MEDS ORDERED: Pantoprazole* 80 mg IN NS 80 MG/250 ML BAG IVPB ONE (21:17)
[2018-07-15] MEDS ORDERED: Metoclopramide IV* 5 MG/ML 2 ML VIAL IV SLOW PU ONE (21:17)
[2018-07-15] MEDS ORDERED: Morphine VIAL* 4 MG/ML VIAL (1 ml vial) IV ONE (21:19)
[2018-07-15 21:48] LABS: Hematocrit 37 % (35-47); Hemoglobin 12.5 g/dl (12.0-16.0); Mean Corpuscular HGB Conc 34 g/dl (31-36); Mean Corpuscular Hemoglobin 33 pg (27-31); Mean Corpuscular Volume 96 fL (80-97); Mean Platelet Volume 7.7 fL (7.4-10.4); Platelet Count 190 10^3/ul (150-450); Red Blood Count 3.82 10^6/ul (4.00-5.40); Red Cell Distribution Width 16 % (10.5-15); White Blood Count 6.4 10^3/ul (3.5-10.8)
[2018-07-15 22:05] LABS: EGFR Non-African American 50.5 (>60)
[2018-07-15 22:16] LABS: INR 0.9 (0.77-1.02)
[2018-07-15] MEDS ORDERED: Thiamine IV* 100 MG, Folic Acid IV* 1 MG, Multiple Vitamin IV ADULT* 10 ML in NS 0.9% 1... IV ONE (22:26)
[2018-07-15] MEDS: KCL 10 MEQ/50 ML IVPREMIX* 10 MEQ/50 ML BAG IV SCH (22:38)
[2018-07-15] MEDS ORDERED: Magnesium Sulfate 2 GM IV* 2 GM/50 ML BAG IVPB ONE (23:14)
[2018-07-16] MEDS ORDERED: Iodixanol* (CONTRAST) 320 MG/ML 100 ML SDV IV ONE (00:21)
[2018-07-16] MEDS: KCL 10 MEQ/50 ML IVPREMIX* 10 MEQ/50 ML BAG IV SCH ×5 (00:46→22:48)
[2018-07-16] MEDS ORDERED: Al Hydrox/Mg Hydrox/Simet LIQ* 30 ML UDC PO PRN (02:16)
[2018-07-16] MEDS ORDERED: Senna TAB PO PRN (02:16)
[2018-07-16] MEDS ORDERED: Ondansetron INJ* 2 MG/ML VIAL IV PRN (02:16)
[2018-07-16] MEDS ORDERED: Docusate CAP* 100 MG PO PRN (02:16)
[2018-07-16] MEDS ORDERED: LORazepam INJ* 2 MG/ML 1 ML VIAL IV PUSH SCH ×2 (03:00→07:09)
[2018-07-16] MEDS ORDERED: KCL 20 MEQ/100 ML IVPREMIX* 20 MEQ/100 ML BAG IV SCH (03:00)
[2018-07-16] MEDS: NS 0.9% 1000 ML* 1,000 ML IV SCH ×3 (05:02→21:01)
[2018-07-16] MEDS: Morphine VIAL* 4 MG/ML VIAL (1 ml vial) IV PRN ×4 (05:16→21:58)
[2018-07-16 05:21] LABS: ABS Basophils 0 10^3/ul (0-0.2); ABS Eosinophils 0.2 10^3/ul (0-0.6); ABS Lymphocytes 2.4 10^3/ul (1.0-4.8); ABS Monocytes 0.7 10^3/ul (0-0.8); ABS Neutrophils 3.8 10^3/ul (1.5-7.7); ABS Nucleated RBC 0 10^3/ul; Eosinophil % 2.9 %; Hematocrit 32 % (35-47); Hemoglobin 10.8 g/dl (12.0-16.0); Lymphocyte % 33.6 %; Mean Corpuscular HGB Conc 34 g/dl (31-36); Mean Corpuscular Hemoglobin 33 pg (27-31); Mean Corpuscular Volume 97 fL (80-97); Mean Platelet Volume 7.3 fL (7.4-10.4); Nucleated Red Blood Cells % 0.2; Platelet Count 151 10^3/ul (150-450); Red Blood Count 3.31 10^6/ul (4.00-5.40); Red Cell Distribution Width 16 % (10.5-15); White Blood Count 7.1 10^3/ul (3.5-10.8)
[2018-07-16 05:28] LABS: Urine Appearance Cloudy; Urine Blood 1+ (Negative); Urine Color Yellow; Urine Ketones Negative (Negative); Urine Protein Negative (Negative); Urine Red Blood Cell 1+(3-5/hpf) (Absent); Urine Specific Gravity 1.033 (1.010-1.030); Urine Urobilinogen Negative (Negative); Urine White Blood Cell Absent (Absent)
[2018-07-16 05:44] LABS: EGFR Non-African American 53.4 (>60)
[2018-07-16] MEDS ORDERED: KCL 20 MEQ/100 ML IVPREMIX* 20 MEQ/100 ML BAG IV ONE (06:12)
[2018-07-16] MEDS: Pantoprazole IV* 40 MG IV SCH (08:05)
[2018-07-16] MEDS: Multivitamins/Minerals TAB PO SCH (08:05)
[2018-07-16] MEDS: Sucralfate TAB* 1 GM PO SCH ×3 (08:05→15:55)
[2018-07-16] MEDS: Folic Acid TAB* 1 MG PO SCH (08:05)
[2018-07-16] MEDS: Thiamine TAB* 100 MG TAB PO SCH (08:05)
[2018-07-16] MEDS ORDERED: Rivaroxaban TAB(*) 20 MG TAB PO SCH (09:00)
--- NOTE | 2018-07-16 11:13 | HP ---
HISTORY AND PHYSICAL: DATE OF ADMISSION: 07/16/18 TIME OF EVALUATION: 0200. PRIMARY CARE PHYSICIAN: The patient does not have a primary care physician. CHIEF COMPLAINT: Nausea, vomiting, abdominal pain. HISTORY OF PRESENT ILLNESS: This is a 28-year-old female with past medical history of alcohol abuse who presented to the emergency room with nausea, vomiting, worsening abdominal pain. The patient states she began having nausea and vomiting about a month ago. She came to the emergency room here on complaining of nausea, vomiting. She states she was diagnosed with a stomach ache and was sent home. She was very upset about this and now for the past 3 days she has developed worsening abdominal pain, unable to sleep. She really has not been able to tolerate p.o. She states her mouth is raw from vomiting. She states she vomits 20 times a day. She tries to eat or drink anything and she immediately vomits. The abdominal pain is mostly in the epigastric and the side region and somewhat in the back. She will wake up drenched in sweat. She has not been able to sleep. She has lost 15 pounds in the last month. No diarrhea. No constipation. Her last bowel movement was 4 days ago. No urinary symptoms. No fever. She states she has had some bright red blood with her emesis. Her last alcohol use was yesterday afternoon. She is vague with the quantity of her alcohol. In the emergency room, the patient had labs, imaging. She was given a banana bag, a liter of fluid, potassium chloride, Protonix, morphine, Reglan, magnesium, and referred to the hospitalist service for further evaluation. PAST MEDICAL HISTORY: 1. Alcohol abuse. 2. History of pulmonary embolism 2 years ago, on anticoagulation. MEDICATIONS: 1. Xarelto 20 mg p.o. daily. 2. Oral contraceptive progestin only daily. 3. Advil as needed. 4. Tylenol as needed. ALLERGIES: No known drug allergies. FAMILY HISTORY: The patient is adopted. Unknown history. SOCIAL HISTORY: The patient is currently unemployed. She lives with her mother. She does not have a healthcare proxy and does not want to designate one. She states she stopped smoking about a week ago because she was feeling so bad. She was smoking 2 to 3 cigarettes per day. In terms of drinking, it is hard to quantify. She kept changing it to 4 to 5 drinks just on the weekend to 2 to 4 drinks per day. She states she has been taking recently 2 to 3 shots of doug every other day. She denies any illicit drug use. REVIEW OF SYSTEMS: A 14-point review of systems as mentioned in the HPI, otherwise negative. PHYSICAL EXAMINATION GENERAL: No acute distress, resting comfortably. VITAL SIGNS: Temp is 98, pulse rate is 111, respiratory rate 20, oxygen saturation 94% on room air, blood pressure 106/68. HEENT: Head: Normocephalic. Pupils are equal and reactive. Anicteric. Oropharynx: Mucous membranes are dry. Posterior oropharynx is erythematous. No exudates. NECK: Supple. No lymphadenopathy. RESPIRATORY: Diminished breath sounds. No wheezes, rhonchi, or rales. CARDIAC: Tachycardia. Soft systolic murmur heard throughout. ABDOMEN: Positive bowel sounds. Soft. Some epigastric tenderness and right upper quadrant tenderness. No rebound or guarding. EXTREMITIES: No clubbing, cyanosis, or edema. NEUROLOGIC: Alert and oriented x3. Mildly tremulous. No focal neurologic deficits. DIAGNOSTIC STUDIES AND LABORATORY DATA: White count 6.4, hemoglobin 12.5, hematocrit 37, platelets 190,000. INR was 0.9. Sodium 129, potassium 2.3, chloride 70, bicarb 44. BUN 30, creatinine 1.27. Anion gap 15. Glucose 104. AST 57, ALT is 19. Amylase 147, lipase 380. TSH 2.45. Beta HCG less than 0.6. Serum alcohol is 147. Radiographic data: Gallbladder ultrasound: Pancreas heterogeneous, appears thickened, cannot exclude acute pancreatitis. There is echogenic sludge and possible fine-layering calculi in the gallbladder with cholelithiasis. No abnormal gallbladder wall thickening or pericholecystic fluid. Negative sonographic Owen sign. Therefore, nonspecific for acute cholecystitis. Abdomen and pelvis CT: There is wall thickening in the distal esophagus, cannot exclude esophagitis. There is thickening of the pancreas diffusely with possible subtle peripancreatic fat stranding suspicious for mild acute pancreatitis. There is normal enhancing function of the kidneys. No visible calculi. EKG shows sinus tachycardia. QTC of 547. ASSESSMENT AND PLAN: This is a 28-year-old female with a past medical history of alcohol abuse who presented to the emergency room with nausea, vomiting, and abdominal pain. 1. Nausea, vomiting, and abdominal pain. Assessment: The patient has multifactorial etiology of her symptoms, mainly gastritis and pancreatitis in the setting of heavy alcohol use. Not actively withdrawing at this time, although she is mildly tremulous. The patient is rather defensive about her drinking habits and rather dismissive. She is mostly upset because she was sent home a month ago for stomachache and she states she was more forthcoming at that time. I discussed the importance of getting help and possibly going to rehab. Plan: We will admit her to inpatient, continue her on IV fluids, clear liquid diet. Continue on pantoprazole. We will also add Carafate, replete her electrolytes, potassium and magnesium. Repeat her labs in the morning. Place her on the [place] protocol and clear fluids, will advance as tolerated. We will also get a urine tox screen. 2. Left hand injury. The patient with swollen erythematous left hand mainly in the fifth metatarsal region. We will check an x-ray to rule out boxer's fracture and keep it in the splint. CHRONIC MEDICAL PROBLEMS: 1. History of pulmonary embolism. We will continue her on her Xarelto, although I am concerned that in the patient with heavy alcohol abuse that Xarelto may be contraindicated. We will also consult Social Work to discuss possible outpatient rehab. 2. FEN. IV fluids, clear liquid diet. 3. DVT prophylaxis. The patient scores 0. She is already on Xarelto. 4. Code status is full code. TIME SPENT: Greater than 60 minutes spent doing the history and physical, more than half the time spent in direct patient contact. [id number]/[facility] #: [id number] TOM
[2018-07-16] MEDS: Acetaminophen TAB* 325 MG PO PRN (14:32)
--- NOTE | 2018-07-16 18:44 | PN ---
Subjective Date of Service: 07/16/18 Interval History: Patient seen and examined, appears tired, complaint of abdominal pain, n/v. Also states left pinky finger pain. No fevers or chills. Objective Active Medications: Acetaminophen (Tylenol Tab*) 650 mg PO Q4H PRN PRN Reason: FEVER/PAIN Last Admin: 07/16/18 14:32 Dose: 650 mg Al Hydrox/Mg Hydrox/Simethicone (Maalox Plus*) 30 ml PO Q6H PRN PRN Reason: INDIGESTION Docusate Sodium (Colace Cap*) 100 mg PO BID PRN PRN Reason: CONSTIPATION Folic Acid (Folvite Tab*) 1 mg PO DAILY [facility] Last Admin: 07/16/18 08:05 Dose: 1 mg Sodium Chloride (Ns 0.9% 1000 Ml*) 1,000 mls @ 150 mls/hr IV PER RATE [facility] Last Admin: 07/16/18 13:20 Dose: 150 mls/hr Potassium Chloride (Potassium Chloride 10 Meq/50 Ml Ivpremix*) 10 meq in 50 mls @ 50 mls/hr IV Q1H [facility] Stop: 07/16/18 22:59 Influenza Virus Vaccine (Fluarix *Quad* 2018-19*) 0.5 ml IM .ONCE ONE Stop: 07/17/18 09:01 Lorazepam (Ativan Inj*) 0 - 6 mg IV PUSH .PER [place] PROTOCOL [facility]; Protocol Morphine Sulfate (Morphine Vial*) 2 mg IV Q4H PRN PRN Reason: PAIN - MILD Last Admin: 07/16/18 16:56 Dose: 2 mg Multivitamins/Minerals (Theragran/Minerals Tab*) 1 tab PO DAILY [facility] Last Admin: 07/16/18 08:05 Dose: 1 tab Ondansetron HCl (Zofran Inj*) 4 mg IV Q4H PRN PRN Reason: NAUSEA/VOMITING Pantoprazole Sodium (Protonix Iv*) 40 mg IV DAILY [facility] Last Admin: 07/16/18 08:05 Dose: 40 mg Rivaroxaban (Xarelto(*)) 10 mg PO DAILY [facility] Senna (Senokot Tab*) 1 tab PO BID PRN PRN Reason: CONSTIPATION Sucralfate (Carafate*) 1 gm PO AC [facility] Last Admin: 07/16/18 15:55 Dose: 1 gm Thiamine HCl (Vitamin B-1 Tab*) 100 mg PO DAILY [facility] Last Admin: 07/16/18 08:05 Dose: 100 mg Vital Signs - 8 hr 07/16/18 07/16/18 07/16/18 11:06 12:14 12:20 Temperature 98.3 F Pulse Rate 103 Respiratory 18 18 18 Rate Blood Pressure 117/74 (mmHg) O2 Sat by Pulse 98 Oximetry 07/16/18 07/16/18 07/16/18 14:05 15:59 16:56 Temperature 98.3 F Pulse Rate 102 91 Respiratory 18 Rate Blood Pressure 118/55 110/76 (mmHg) O2 Sat by Pulse 99 Oximetry 07/16/18 17:57 Temperature Pulse Rate Respiratory 16 Rate Blood Pressure (mmHg) O2 Sat by Pulse Oximetry Oxygen Devices in Use Now: None Appearance: alert, NAD Eyes: No Scleral Icterus, PERRLA Ears/Nose/Mouth/Throat: NL Teeth, Lips, Gums, Mucous Membranes Moist Neck: NL Appearance and Movements; NL JVP, Trachea Midline Respiratory: Symmetrical Chest Expansion and Respiratory Effort, Clear to Auscultation Cardiovascular: NL Sounds; No Murmurs; No JVD, RRR, No Edema Abdominal: - - diffuse tenderness with localization in the far lateral LUQ Extremities: No Edema, No Clubbing, Cyanosis Skin: No Rash or Ulcers Neurological: Alert and Oriented x 3, NL Gait Nutrition: - - tolerating CLD Result Diagrams: 07/16/18 05:08 07/16/18 05:08 Microbiology and Other Data: Microbiology 07/15/18 21:29 Stool Occult Blood (MAKENZIE) - Final Stool Diagnostic Imaging: CT CHEST/ABD/PELVIS Impression: [facility] Patient Name:ADAM SAMUEL MR: [id number] : 1990 IMPRESSION: 1. There is wall thickening in the distal esophagus, cannot exclude esophagitis. 2. There is thickening of the pancreas diffusely with possible subtle peripancreatic fat stranding suspicious for mild acute pancreatitis. 3. There is normal enhancement and function of the kidneys. No visible calculi. To contact [facility] with a general question: [facility] - [phone] For direct physician to physician contact: Physician Hotline - [phone] [facility] ([facility] Facility ID #[id number]) <Electronically signed by Ketan Pinzon MD in OV> 07/16/1836 Dictated By: Ketan Pinzon MD Dictated Date/Time: 07/16/1836 Transcribed Date/Time: Copy to: Assess/Plan/Problems-Billing Assessment: This is a 28 year old female with history of ETOH abuse and unprovoked PE, that presents with acute pancreatitis, left hand pain. - Patient Problems (1) Pancreatitis, alcoholic, acute Code(s): K85.20 - ALCOHOL INDUCED ACUTE PANCREATITIS WITHOUT NECROSIS OR INFCT SNOMED Code(s): 646766766 Comment: - With reported bloody emesis but currently no vomiting but does have esophagitis 2/2 vomiting - Continue aggressive hydration, tolerating CLD, continue carafate and PPI - Pain control - Imaging as above, no necrosis or abscess, no white count or fever, no indication for antibiotics, lipase = 380 - [facility] protocol, thiamine and MVI, no s/s detox (2) History of pulmonary embolus (PE) Code(s): Z86.711 - PERSONAL HISTORY OF PULMONARY EMBOLISM SNOMED Code(s): 322359482 Comment: - 2 years ago, unprovoked per patient - States she followed with hematology in [place] and etiology could not be identified - Non-compliant with xarelto - Lower dose xarelto started given report of bloody emesis, discussed with pharmacy - No SOB, oxygen adequate (3) Fracture of fifth metacarpal bone of left hand Code(s): S62.307A - UNSP FRACTURE OF FIFTH METACARPAL BONE, LEFT HAND, INIT SNOMED Code(s): 835142858 Comment: - Imaging as above, non-displaced - Will consult ortho for splinting to assist with healing/comfort (4) Hypokalemia Code(s): E87.6 - HYPOKALEMIA SNOMED Code(s): 47016853 Comment: - No appreciable change from admission, remains at 2.6 today after 1 K rider and 2 gm magnesium - Replete IV x 4 runs tonight and recheck in AM (5) DVT prophylaxis Code(s): EGQ8113 - SNOMED Code(s): 009633081 Comment: - xarelto Status and Disposition: Inpatient. Will need SW followup and outpatient support. Counseled on cessation of ETOH/substance abuse.
[2018-07-16] MEDS: diPHENhydraMINE PO* 50 MG PO PRN (22:47)
[2018-07-17] MEDS: KCL 10 MEQ/50 ML IVPREMIX* 10 MEQ/50 ML BAG IV SCH ×2 (00:15→01:37)
[2018-07-17] MEDS: Morphine VIAL* 4 MG/ML VIAL (1 ml vial) IV PRN ×5 (02:51→22:25)
[2018-07-17 05:23] LABS: ABS Basophils 0 10^3/ul (0-0.2); ABS Eosinophils 0.1 10^3/ul (0-0.6); ABS Lymphocytes 1.5 10^3/ul (1.0-4.8); ABS Monocytes 0.3 10^3/ul (0-0.8); ABS Neutrophils 2.2 10^3/ul (1.5-7.7); ABS Nucleated RBC 0 10^3/ul; Eosinophil % 3.4 %; Hematocrit 29 % (35-47); Hemoglobin 9.7 g/dl (12.0-16.0); Lymphocyte % 37.1 %; Mean Corpuscular HGB Conc 33 g/dl (31-36); Mean Corpuscular Hemoglobin 33 pg (27-31); Mean Corpuscular Volume 99 fL (80-97); Mean Platelet Volume 6.9 fL (7.4-10.4); Nucleated Red Blood Cells % 0.1; Platelet Count 133 10^3/ul (150-450); Red Blood Count 2.95 10^6/ul (4.00-5.40); Red Cell Distribution Width 16 % (10.5-15); White Blood Count 4.1 10^3/ul (3.5-10.8)
[2018-07-17 05:38] LABS: EGFR Non-African American 80.2 (>60)
[2018-07-17] MEDS: NS 0.9% 1000 ML* 1,000 ML IV SCH ×3 (05:58→22:25)
[2018-07-17] MEDS: Sucralfate TAB* 1 GM PO SCH ×3 (07:44→15:54)
[2018-07-17] MEDS: Pantoprazole IV* 40 MG IV SCH (08:20)
[2018-07-17] MEDS: Thiamine TAB* 100 MG TAB PO SCH (08:23)
[2018-07-17] MEDS: Rivaroxaban TAB(*) 10 MG PO SCH (08:23)
[2018-07-17] MEDS: Folic Acid TAB* 1 MG PO SCH (08:23)
[2018-07-17] MEDS: Multivitamins/Minerals TAB PO SCH (08:23)
[2018-07-17] MEDS: KCL 20 MEQ/100 ML IVPREMIX* 20 MEQ/100 ML BAG IV SCH ×2 (09:04→11:35)
[2018-07-17] MEDS: Acetaminophen TAB* 325 MG PO PRN (10:56)
--- NOTE | 2018-07-17 16:10 | PN ---
Subjective Date of Service: 07/17/18 Interval History: pt reports she feels better everyday but still c/o LUQ pain, improved from previous. nausea resolved. No vomiting. Reports daily BMs. Denies diarrhea. Tolerating clear liquids. No fever or chills. Reports cramps from starting period today. Objective Active Medications: Acetaminophen (Tylenol Tab*) 650 mg PO Q4H PRN PRN Reason: FEVER/PAIN Last Admin: 07/17/18 10:56 Dose: 650 mg Al Hydrox/Mg Hydrox/Simethicone (Maalox Plus*) 30 ml PO Q6H PRN PRN Reason: INDIGESTION Diphenhydramine HCl (Benadryl Po*) 50 mg PO BEDTIME PRN PRN Reason: SLEEP Last Admin: 07/16/18 22:47 Dose: 50 mg Docusate Sodium (Colace Cap*) 100 mg PO BID PRN PRN Reason: CONSTIPATION Folic Acid (Folvite Tab*) 1 mg PO DAILY [facility] Last Admin: 07/17/18 08:23 Dose: 1 mg Sodium Chloride (Ns 0.9% 1000 Ml*) 1,000 mls @ 150 mls/hr IV PER RATE [facility] Last Admin: 07/17/18 14:10 Dose: 150 mls/hr Lorazepam (Ativan Inj*) 0 - [address] .PER [facility] PROTOCOL [facility]; Protocol Morphine Sulfate (Morphine Vial*) 2 mg IV Q4H PRN PRN Reason: PAIN - MILD Last Admin: 07/17/18 14:11 Dose: 2 mg Multivitamins/Minerals (Theragran/Minerals Tab*) 1 tab PO DAILY [facility] Last Admin: 07/17/18 08:23 Dose: 1 tab Ondansetron HCl (Zofran Inj*) 4 mg IV Q4H PRN PRN Reason: NAUSEA/VOMITING Pantoprazole Sodium (Protonix Iv*) 40 mg IV DAILY [facility] Last Admin: 07/17/18 08:20 Dose: 40 mg Rivaroxaban (Xarelto(*)) 10 mg PO DAILY [facility] Last Admin: 07/17/18 08:23 Dose: 10 mg Senna (Senokot Tab*) 1 tab PO BID PRN PRN Reason: CONSTIPATION Sucralfate (Carafate*) 1 gm PO 0600,1100,1600 [facility] Last Admin: 07/17/18 15:54 Dose: 1 gm Thiamine HCl (Vitamin B-1 Tab*) 100 mg PO DAILY [facility] Last Admin: 07/17/18 08:23 Dose: 100 mg Vital Signs - 8 hr 07/17/18 07/17/18 07/17/18 08:20 09:14 10:05 Temperature 98.3 F Pulse Rate 96 Respiratory 18 18 16 Rate Blood Pressure 117/82 (mmHg) O2 Sat by Pulse 100 Oximetry 07/17/18 07/17/18 07/17/18 12:08 14:11 14:13 Temperature 98.1 F 98.4 F Pulse Rate 94 88 Respiratory 20 18 16 Rate Blood Pressure 115/80 111/79 (mmHg) O2 Sat by Pulse 100 100 Oximetry 07/17/18 15:20 Temperature Pulse Rate Respiratory 18 Rate Blood Pressure (mmHg) O2 Sat by Pulse Oximetry Oxygen Devices in Use Now: None Appearance: 28 yo female laying in bed watching TV in NAD. A+O x3 Eyes: No Scleral Icterus, PERRLA Ears/Nose/Mouth/Throat: NL Teeth, Lips, Gums, Mucous Membranes Moist Neck: NL Appearance and Movements; NL JVP Respiratory: Symmetrical Chest Expansion and Respiratory Effort, Clear to Auscultation Cardiovascular: NL Sounds; No Murmurs; No JVD, RRR, No Edema Abdominal: - - mild distention, soft, nonguarding. nontender Extremities: No Edema, No Clubbing, Cyanosis Skin: No Rash or Ulcers, No Nodules or Sclerosis Neurological: Alert and Oriented x 3, NL Sensation, NL Muscle Strength and Tone Lines/Tubes/Other Access: Clean, Dry and Intact Peripheral IV Nutrition: Taking PO's - clears Result Diagrams: 07/17/18 05:02 07/17/18 05:02 Microbiology and Other Data: Microbiology 07/15/18 21:29 Stool Occult Blood (MAKENZIE) - Final Stool Diagnostic Imaging: CT CHEST/ABD/PELVIS Impression: [facility] Patient Name:ADAM SAMUEL MR: [id number] : 1990 IMPRESSION: 1. There is wall thickening in the distal esophagus, cannot exclude esophagitis. 2. There is thickening of the pancreas diffusely with possible subtle peripancreatic fat stranding suspicious for mild acute pancreatitis. 3. There is normal enhancement and function of the kidneys. No visible calculi. To contact [facility] with a general question: Operations Center - [phone] For direct physician to physician contact: Physician Hotline - [phone] [facility] ([facility] Facility ID #[id number]) <Electronically signed by Ketan Pinzon MD in OV> 07/16/1836 Dictated By: Ketan Pinzon MD Dictated Date/Time: 07/16/1836 Transcribed Date/Time: Copy to: Assess/Plan/Problems-Billing Assessment: This is a 28 year old female with history of ETOH abuse and unprovoked PE, that presents with acute pancreatitis, left hand pain. - Patient Problems (1) Pancreatitis, alcoholic, acute SNOMED Code(s): 654038472 (2) Fracture of fifth metacarpal bone of left hand Comment: - Imaging as above, non-displaced - Ortho for splinting to assist with healing/comfort (3) History of pulmonary embolus (PE) Comment: - 2 years ago, unprovoked per patient - States she followed with hematology in [place] and etiology could not be identified - Non-compliant with xarelto - Lower dose xarelto started given report of bloody emesis, Ellie Burr VENDING ATTENDANT discussed with pharmacy - No SOB, oxygen adequate (4) Hypokalemia Comment: - No appreciable change from admission, remains at 2.6 today after 1 K rider and 2 gm magnesium - Replete IV x 4 runs tonight and recheck in AM (5) DVT prophylaxis Comment: - xarelto Status and Disposition: Inpatient. Will need SW followup and outpatient support. Counseled on cessation of ETOH/substance abuse.
--- NOTE | 2018-07-17 20:22 | CONS ---
CONSULTATION REPORT: DATE OF CONSULT: 07/17/18 PRIMARY CARE PHYSICIAN: None. ATTENDING ORTHOPEDIC PROVIDER: Dr. Albert Almanza. CHIEF COMPLAINT: Left fifth finger fracture. HISTORY OF PRESENT ILLNESS: Ms. Ruano is a 28-year-old female, who is admitted to the hospital underneath the medicine service for pancreatitis and hypokalemia. During her stay, it was also noted that she has a 3-week old injury to her left hand for which we have been consulted. The patient states 3 weeks ago, she shut her left pinky finger in the door of her car. She did not seek medical attention. It was immediately painful. She made a homemade splint for the digit, pain and swelling have been improving. She does not have any current pain unless she bangs the finger or tries to use it. There are no open lesions on the finger. She is right handed. PAST MEDICAL HISTORY: Significant for: 1. Alcohol abuse. 2. History of pulmonary embolism. MEDICATIONS: Include: 1. Xarelto 20 mg p.o. daily. 2. Oral contraceptive progestin-only daily. 3. Advil as needed. 4. Tylenol as needed. ALLERGIES: No known drug allergies. FAMILY HISTORY: Adopted. SOCIAL HISTORY: Includes alcohol abuse. REVIEW OF SYSTEMS: Denies fevers or chills. HEENT: Denies any headache or vision change. Cardio: Denies any chest pain, irregular heartbeat. Respiratory: Denies shortness of breath or cough. Abdomen: Denies any nausea , vomiting, diarrhea, or abdominal pain. : Denies dysuria. Musculoskeletal : Confirms left hand pinky pain with use. The patient has kept it in a homemade splint. Neuro: Sensation is intact throughout all digits, the tip of the left fifth digit did feel somewhat numb after injury which has slowly been resolving with over time. Hematology: Does have history of PE. Skin: Left fifth digit with bruising. PHYSICAL EXAM: General: Well-appearing, in no acute distress. HEENT: Normocephalic, atraumatic. Extraocular movements intact. Cardio: S1, S2. Regular rate and rhythm. Respiratory: Clear to auscultation bilaterally. Upper Extremities: Right upper extremity, skin envelope is intact. No obvious deformity. Nontender to palpation. Active flexion and extension of digits, wrist, elbow, and shoulder without any associated pain. Left upper extremity: Skin envelope is intact. Left fifth digit is mildly edematous and ecchymotic without discoloration spanning past the MCP. The digit and the hand are compressible. She is able to flex and extend at the MCP,and PIP. She does not attempt to move the DIP due to pain. There is no erythema. There are no open lesions. Sensation is intact throughout the digit, some decreased sensation at the tip, but no areas of numbness. Capillary refill is less than 2 seconds distally. The remainder of the left upper extremity is nontender and she has good range of motion at the wrist, elbow, and shoulder. Vascular: Radial pulse 2+ bilaterally. Capillary refill less than 2 seconds and distally in the left fifth digit. DIAGNOSTIC STUDIES: Left hand x-ray demonstrates a nondisplaced fracture of the tuft of the distal phalanx of the fifth digit. ASSESSMENT: Left fifth digit distal phalanx fracture. PLAN: The patient should leave her fourth and fifth digits herb taped together and follow up with one of our hand surgeons ( Dr Howard or Dr Lou) as an outpatient when she is discharged from the hospital. NWB, Rest and ice the 5th digit. Orthopedics will sign off for now while inpatient. If she has any further issues, please feel free to reach out for further consultation. ZAN AGUSTIN [id number]/[facility] #: [id number] MTDFlorentin
[2018-07-17] MEDS: diPHENhydraMINE PO* 50 MG PO PRN (22:25)
[2018-07-18] MEDS: Acetaminophen TAB* 325 MG PO PRN ×3 (00:25→22:16)
[2018-07-18] MEDS: Morphine VIAL* 4 MG/ML VIAL (1 ml vial) IV PRN ×2 (02:17→06:25)
[2018-07-18 05:24] LABS: ABS Basophils 0 10^3/ul (0-0.2); ABS Eosinophils 0.2 10^3/ul (0-0.6); ABS Lymphocytes 1.4 10^3/ul (1.0-4.8); ABS Monocytes 0.3 10^3/ul (0-0.8); ABS Neutrophils 2.2 10^3/ul (1.5-7.7); ABS Nucleated RBC 0 10^3/ul; Hematocrit 30 % (35-47); Lymphocyte % 34.5 %; Mean Corpuscular HGB Conc 33 g/dl (31-36); Mean Corpuscular Hemoglobin 33 pg (27-31); Mean Corpuscular Volume 100 fL (80-97); Mean Platelet Volume 7.2 fL (7.4-10.4); Nucleated Red Blood Cells % 0.1; Platelet Count 158 10^3/ul (150-450); Red Blood Count 3.03 10^6/ul (4.00-5.40); Red Cell Distribution Width 16 % (10.5-15); White Blood Count 4.1 10^3/ul (3.5-10.8)
[2018-07-18 05:41] LABS: EGFR Non-African American 109.3 (>60)
[2018-07-18] MEDS: NS 0.9% 1000 ML* 1,000 ML IV SCH ×2 (05:43→12:43)
[2018-07-18] MEDS: Sucralfate TAB* 1 GM PO SCH ×3 (05:43→16:30)
[2018-07-18] MEDS: Multivitamins/Minerals TAB PO SCH (08:03)
[2018-07-18] MEDS: Rivaroxaban TAB(*) 10 MG PO SCH (08:03)
[2018-07-18] MEDS: Pantoprazole IV* 40 MG IV SCH (08:03)
[2018-07-18] MEDS: Thiamine TAB* 100 MG TAB PO SCH (08:03)
[2018-07-18] MEDS: Folic Acid TAB* 1 MG PO SCH (08:03)
[2018-07-18] MEDS: KCL 20 MEQ/100 ML IVPREMIX* 20 MEQ/100 ML BAG IV SCH ×2 (08:54→11:12)
--- NOTE | 2018-07-18 15:09 | PN ---
Subjective Date of Service: 07/18/18 Interval History: Patient reports she feels dramatically better today. no further abdominal pain. No fever or chills. no nausea. tolerated diet well. would like to advance diet Objective Active Medications: Acetaminophen (Tylenol Tab*) 650 mg PO Q4H PRN PRN Reason: FEVER/PAIN Last Admin: 07/18/18 05:43 Dose: 650 mg Al Hydrox/Mg Hydrox/Simethicone (Maalox Plus*) 30 ml PO Q6H PRN PRN Reason: INDIGESTION Diphenhydramine HCl (Benadryl Po*) 50 mg PO BEDTIME PRN PRN Reason: SLEEP Last Admin: 07/17/18 22:25 Dose: 50 mg Docusate Sodium (Colace Cap*) 100 mg PO BID PRN PRN Reason: CONSTIPATION Folic Acid (Folvite Tab*) 1 mg PO DAILY [facility] Last Admin: 07/18/18 08:03 Dose: 1 mg Sodium Chloride (Ns 0.9% 1000 Ml*) 1,000 mls @ 150 mls/hr IV PER RATE [facility] Last Admin: 07/18/18 12:43 Dose: 150 mls/hr Lorazepam (Ativan Inj*) 0 - 6 mg IV PUSH .PER [facility] PROTOCOL [facility]; Protocol Morphine Sulfate (Morphine Vial*) 2 mg IV Q4H PRN PRN Reason: PAIN - MILD Last Admin: 07/18/18 06:25 Dose: 2 mg Multivitamins/Minerals (Theragran/Minerals Tab*) 1 tab PO DAILY [facility] Last Admin: 07/18/18 08:03 Dose: 1 tab Ondansetron HCl (Zofran Inj*) 4 mg IV Q4H PRN PRN Reason: NAUSEA/VOMITING Pantoprazole Sodium (Protonix Iv*) 40 mg IV DAILY [facility] Last Admin: 07/18/18 08:03 Dose: 40 mg Rivaroxaban (Xarelto(*)) 10 mg PO DAILY [facility] Last Admin: 07/18/18 08:03 Dose: 10 mg Senna (Senokot Tab*) 1 tab PO BID PRN PRN Reason: CONSTIPATION Sucralfate (Carafate*) 1 gm PO 0600,1100,1600 [facility] Last Admin: 07/18/18 11:12 Dose: 1 gm Thiamine HCl (Vitamin B-1 Tab*) 100 mg PO DAILY [facility] Last Admin: 12/06/18 08:03 Dose: 100 mg Vital Signs - 8 hr 07/18/18 07/18/18 07/18/18 08:04 08:27 08:32 Temperature 96.2 F 98.5 F Pulse Rate 87 Respiratory 16 16 Rate Blood Pressure 120/85 (mmHg) O2 Sat by Pulse 100 Oximetry 07/18/18 07/18/18 09:40 12:39 Temperature 98.6 F Pulse Rate 96 Respiratory 16 18 Rate Blood Pressure 120/83 (mmHg) O2 Sat by Pulse 100 Oximetry Oxygen Devices in Use Now: None Appearance: well developed 28 yo female A+O x3 in NAD Eyes: No Scleral Icterus, PERRLA Ears/Nose/Mouth/Throat: NL Teeth, Lips, Gums, Mucous Membranes Moist Neck: NL Appearance and Movements; NL JVP Respiratory: Symmetrical Chest Expansion and Respiratory Effort, Clear to Auscultation Cardiovascular: NL Sounds; No Murmurs; No JVD, RRR, No Edema Abdominal: NL Sounds; No Tenderness; No Distention, No Hepatosplenomegaly Extremities: No Edema, No Clubbing, Cyanosis Skin: No Rash or Ulcers, No Nodules or Sclerosis Neurological: Alert and Oriented x 3, NL Sensation, NL Muscle Strength and Tone Lines/Tubes/Other Access: Clean, Dry and Intact Peripheral IV Nutrition: Taking PO's Result Diagrams: 07/18/18 04:39 07/18/18 04:39 Microbiology and Other Data: Microbiology 07/15/18 21:29 Stool Occult Blood (MAKENZIE) - Final Stool Diagnostic Imaging: CT CHEST/ABD/PELVIS Impression: [facility] Patient Name:ADAM SAMUEL MR: [id number] : 1990 IMPRESSION: 1. There is wall thickening in the distal esophagus, cannot exclude esophagitis. 2. There is thickening of the pancreas diffusely with possible subtle peripancreatic fat stranding suspicious for mild acute pancreatitis. 3. There is normal enhancement and function of the kidneys. No visible calculi. To contact [facility] with a general question: [facility] - [phone] For direct physician to physician contact: Physician Hotline - [phone] [facility] ([facility] Facility ID #[id number]) <Electronically signed by Ketan Pinzon MD in OV> 07/16/1836 Dictated By: Ketan Pinzon MD Dictated Date/Time: 07/16/1836 Transcribed Date/Time: Copy to: Assess/Plan/Problems-Billing Assessment: This is a 28 year old female with history of ETOH abuse and unprovoked PE, that presents with acute pancreatitis, left hand pain. - Patient Problems (1) Pancreatitis, alcoholic, acute Comment: - Much improvement today,no nausea, pain has resolved today - DC IVFs, advance diet - Imaging as above, no necrosis or abscess - lipase trending down - [facility] protocol, thiamine and MVI, no s/s detox (2) Fracture of fifth metacarpal bone of left hand Comment: - Imaging as above, non-displaced - Ortho for splinting to assist with healing/comfort (3) History of pulmonary embolus (PE) Comment: - 2 years ago, unprovoked per patient - States she followed with hematology in [place] and etiology could not be identified - Non-compliant with xarelto - Lower dose xarelto started given report of bloody emesis, Ellie Burr NP discussed with pharmacy - No SOB, oxygen adequate (4) Hypokalemia Comment: - resplacment as needed (5) DVT prophylaxis Comment: - xarelto Status and Disposition: Inpatient. Will need SW followup and outpatient support. Counseled on cessation of ETOH/substance abuse.
[2018-07-18] MEDS ORDERED: Cholecalciferol TAB* 1000 UNITS PO ONE (18:00)
[2018-07-18] MEDS: diPHENhydraMINE PO* 50 MG PO PRN (23:48)
[2018-07-19] MEDS: Sucralfate TAB* 1 GM PO SCH ×2 (05:09→11:28)
[2018-07-19 05:47] LABS: ABS Basophils 0 10^3/ul (0-0.2); ABS Eosinophils 0.2 10^3/ul (0-0.6); ABS Lymphocytes 1.4 10^3/ul (1.0-4.8); ABS Monocytes 0.4 10^3/ul (0-0.8); ABS Neutrophils 2.7 10^3/ul (1.5-7.7); ABS Nucleated RBC 0 10^3/ul; Hematocrit 31 % (35-47); Hemoglobin 10.2 g/dl (12.0-16.0); Lymphocyte % 30.4 %; Mean Corpuscular HGB Conc 33 g/dl (31-36); Mean Corpuscular Hemoglobin 33 pg (27-31); Mean Corpuscular Volume 100 fL (80-97); Mean Platelet Volume 7.2 fL (7.4-10.4); Nucleated Red Blood Cells % 0; Platelet Count 202 10^3/ul (150-450); Red Cell Distribution Width 16 % (10.5-15); White Blood Count 4.7 10^3/ul (3.5-10.8)
[2018-07-19 06:06] LABS: EGFR Non-African American 119.9 (>60)
[2018-07-19] MEDS: Thiamine TAB* 100 MG TAB PO SCH (08:07)
[2018-07-19] MEDS: Folic Acid TAB* 1 MG PO SCH (08:07)
[2018-07-19] MEDS: Rivaroxaban TAB(*) 10 MG PO SCH (08:07)
[2018-07-19] MEDS: Multivitamins/Minerals TAB PO SCH (08:07)
[2018-07-19] MEDS: Pantoprazole IV* 40 MG IV SCH (08:07)
[2018-07-19] MEDS ORDERED: Cholecalciferol TAB* 1000 UNITS PO SCH (09:00)
[2018-07-19] MEDS: KCL 20 MEQ/100 ML IVPREMIX* 20 MEQ/100 ML BAG IV SCH ×2 (09:19→11:28)
[2018-07-19 13:18] VITALS: BP 118/90
--- NOTE | 2018-07-19 14:09 | DCNOTE ---
Subjective Date of Service: 07/19/18 Interval History: patient reports she feels much better and has no pain and is tolerating her diet. She denies fever/chills. reports she is ready to go home. Reviewed discharge plans. She is interested in [facility] drug & ETOH counseling Again - reviewed cessation of alcohol and the consequences. Objective Active Medications: Acetaminophen (Tylenol Tab*) 650 mg PO Q4H PRN PRN Reason: FEVER/PAIN Last Admin: 07/18/18 22:16 Dose: 650 mg Al Hydrox/Mg Hydrox/Simethicone (Maalox Plus*) 30 ml PO Q6H PRN PRN Reason: INDIGESTION Cholecalciferol (Vitamin D Tab*) 4,000 units PO DAILY [facility] Last Admin: 07/19/18 08:07 Dose: 4,000 units Diphenhydramine HCl (Benadryl Po*) 50 mg PO BEDTIME PRN PRN Reason: SLEEP Last Admin: 07/18/18 23:48 Dose: 50 mg Docusate Sodium (Colace Cap*) 100 mg PO BID PRN PRN Reason: CONSTIPATION Folic Acid (Folvite Tab*) 1 mg PO DAILY [facility] Last Admin: 07/19/18 08:07 Dose: 1 mg Multivitamins/Minerals (Theragran/Minerals Tab*) 1 tab PO DAILY [facility] Last Admin: 07/19/18 08:07 Dose: 1 tab Ondansetron HCl (Zofran Inj*) 4 mg IV Q4H PRN PRN Reason: NAUSEA/VOMITING Pantoprazole Sodium (Protonix Iv*) 40 mg IV DAILY [facility] Last Admin: 07/19/18 08:07 Dose: 40 mg Rivaroxaban (Xarelto(*)) 10 mg PO DAILY [facility] Last Admin: 07/19/18 08:07 Dose: 10 mg Senna (Senokot Tab*) 1 tab PO BID PRN PRN Reason: CONSTIPATION Sucralfate (Carafate*) 1 gm PO 0600,1100,1600 [facility] Last Admin: 07/19/18 11:28 Dose: 1 gm Thiamine HCl (Vitamin B-1 Tab*) 100 mg PO DAILY [facility] Last Admin: 07/19/18 08:07 Dose: 100 mg Vital Signs - 8 hr 07/19/18 07/19/18 07/19/18 08:00 08:24 13:10 Temperature 98.1 F 98.4 F Pulse Rate 93 88 Respiratory 16 16 16 Rate Blood Pressure 125/89 118/90 (mmHg) O2 Sat by Pulse 100 100 Oximetry Oxygen Devices in Use Now: None Appearance: 28 yo female A+O x3 well groomed in NAD Eyes: No Scleral Icterus, PERRLA Ears/Nose/Mouth/Throat: NL Teeth, Lips, Gums, Mucous Membranes Moist Neck: NL Appearance and Movements; NL JVP Respiratory: Symmetrical Chest Expansion and Respiratory Effort, Clear to Auscultation Cardiovascular: NL Sounds; No Murmurs; No JVD, RRR, No Edema Abdominal: NL Sounds; No Tenderness; No Distention Extremities: No Edema, No Clubbing, Cyanosis Skin: No Rash or Ulcers Neurological: Alert and Oriented x 3, NL Sensation, NL Gait, NL Muscle Strength and Tone Lines/Tubes/Other Access: Clean, Dry and Intact Peripheral IV Nutrition: Taking PO's Result Diagrams: 07/19/18 05:20 07/19/18 05:20 Microbiology and Other Data: Microbiology 07/15/18 21:29 Stool Occult Blood (MAKENZIE) - Final Stool Diagnostic Imaging: CT CHEST/ABD/PELVIS Impression: [facility] Patient Name:ADAM SAMUEL MR: [id number] : 1990 IMPRESSION: 1. There is wall thickening in the distal esophagus, cannot exclude esophagitis. 2. There is thickening of the pancreas diffusely with possible subtle peripancreatic fat stranding suspicious for mild acute pancreatitis. 3. There is normal enhancement and function of the kidneys. No visible calculi. To contact [facility] with a general question: Operations Center - [phone] For direct physician to physician contact: Physician Hotline - [phone] [facility] ([facility] Facility ID #[id number]) <Electronically signed by Ketan Pinzon MD in OV> 07/16/1836 Dictated By: Ketan Pinzon MD Dictated Date/Time: 12/04/18 0037 Transcribed Date/Time: Copy to: Assess/Plan/Problems-Billing Assessment: This is a 28 year old female with history of ETOH abuse and unprovoked PE, that presents with acute pancreatitis - Patient Problems (1) Pancreatitis, alcoholic, acute Comment: - continues to have great improvement today,no nausea, pain has resolved - Tolerating diet - Imaging no necrosis or abscess - lipase trending down (2) Fracture of fifth metacarpal bone of left hand Comment: - Imaging as above, non-displaced - Ortho for splinting to assist with healing/comfort (3) Esophagitis Comment: continue PPI will referred to GI (4) History of pulmonary embolus (PE) Comment: - 2 years ago, unprovoked per patient - States she followed with hematology in [place] and etiology could not be identified - Non-compliant with xarelto d/t insurance - Lower dose xarelto started given report of bloody emesis, Ellie Burr, 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 Will need SW followup and outpatient support. Counseled on cessation of ETOH/substance abuse. Plan for DC to home
--- NOTE | 2018-07-22 11:28 | DS ---
DISCHARGE SUMMARY: DATE OF ADMISSION: 07/16/18 DATE OF DISCHARGE: 07/19/18 PROVIDER: Maryan Ireland NP. ATTENDING PHYSICIAN: Dr. Lundberg (report dictated by Maryan Ireland NP). PRIMARY CARE PROVIDER: No PCP. The patient will be referred to [facility]. DISCHARGE DIAGNOSES: 1. Acute pancreatitis secondary to alcohol abuse. 2. Fracture of the fifth metacarpal bone, left hand, nondisplaced. 3. Questionable esophagitis. 4. Electrolyte abnormalities. 5. Acute renal failure. SECONDARY DIAGNOSIS: History of pulmonary embolism, currently on Xarelto. HISTORY OF PRESENT ILLNESS AND HOSPITAL COURSE: Please see history and physical by Dr. Ritika Burnham for full admission details, but in summary, this is a 28-year-old female with a past medical history of alcohol abuse, unprovoked pulmonary embolism, who presented to the emergency department on with complaint of nausea, vomiting, abdominal pain, found to have a lipase of 380 and amylase of 1 47, mildly elevated liver enzymes with an AST of 57. She presented with a serum alcohol level of 147 . She was found to have severe electrolyte abnormalities and acute renal failure with a creatinine o f 1.27. The patient also presented with a CO2 of 44 and anion gap of 15. [facility] IV resuscitation. Her electrolytes were replaced. She underwent an abdominopelvis CAT scan, which showed, impression: "1. Wall thickening of the dista l esophagus cannot exclude esophagitis. 2. Thickening of the pancreas diffusely with possible subtle pancreatic fat stranding suspicious for mild acute pancreatitis. 3. Normal enhancement and function of the kidneys; no visible calculi." The patient had no leukocytosis throughout hospitalization and remained afebrile and hemodynamically stable. Per the patient, she reports heavy alcohol abuse only within the past 6 months due to emotional stres s and she feels that she would not have a problem discontinuing alcohol use but states that she would like to have counseling and has been referred to [facility]. She had 1 or 2 episodes of hematemesis when she was feeling nauseous. This was thought to be seconda ry to possible esophagitis. She did have a stool for occult blood, which was negative due to her his tory of being on Xarelto, however, she reports that due to not having an insurance she has not been p icking her Xarelto for quite some time. She was restarted on her Xarelto on admission at a lower dos e of 15 mg and has not had any further signs of bleeding. This was increased back to 20 mg of Xarelt o on discharge. The patient reports that she was told she had unprovoked pulmonary embolism. She di d see a research assistant in [place] I believe only once and does state she would follow up with a hemato logist here in [place]. She has recently moved from [place] to [place] and currently has no primary ca re provider in the [place] area. She has been referred [facility] after discharge. I will consider referring to hematology. The patient was seen in consultation by the ortho team for a fracture of the fifth metacarpal in the left hand. Per Ortho, this is just to be herb taped for comfort. No further recommendations. In regards to the patient's esophagitis, I do think the patient would benefit from referral to gastro enterologist and possibly requiring upper endoscopy. I have ordered for the patient to have followup labs next week due to her significant electrolyte abn ormalities throughout hospitalization that required multiple rounds of electrolyte replacement as wel l as monitoring her hemoglobin and hematocrit and restarting the Xarelto. I have added on iron studi es, which were not done throughout hospitalization. As well, it is noted that her vitamin D is very low at less than 7. She has been recommended to start vitamin D supplementation. DISCHARGE MEDICATIONS: 1. Vitamin D 4000 units p.o. daily. This should be rechecked in approximately 8 to 12 weeks. 2. Folic acid 1 mg p.o. daily. 3. Multivitamin with minerals 1 tab p.o. daily. 4. Prilosec 20 mg p.o. daily. 5. Xarelto 20 mg p.o. daily. 6. Carafate 1 g p.o. t.i.d. 7. Thiamine 100 mg p.o. daily. DISCHARGE PLAN: 1. Follow up with [facility]. [facility] staff will call the patient for a time and date. 2. The patient has been given the number of [facility] [place] and recommended to call for further evaluation. 3. The patient has been given information for [facility]. She has be en seen in followup by Social Work during hospitalization. 4. The patient was instructed to completely abstain from alcohol. She was given daily education of the risks of continuing to drink. The patient at this time states that she feels that she would be s uccessful with not drinking. 5. The patient was instructed to return to the emergency department with any worsening or concerning symptoms. TIME SPENT: Approximately 60 minutes was spent on this discharge summary. MARYAN IRELAND, MIRIAM [id number]/[facility] #: [id number]
== END 2018-07-19 16:00 | disposition home or self-care (01) | DRG 440 ==
LOC: ED 17:36 → MEDTELE 07-16 02:16
PROVIDERS: ADMIT Pediatrics; ATTEND Internal Medicine
DX: K85.20 Alcohol induced acute pancreatitis without necrosis or infection (principal); K20.9 Esophagitis, unspecified; S62.307A Unspecified fracture of fifth metacarpal bone, left hand, initial encounter for closed fracture; E87.6 Hypokalemia; F17.210 Nicotine dependence, cigarettes, uncomplicated; X58.XXXA Exposure to other specified factors, initial encounter; Z86.711 Personal history of pulmonary embolism; Z79.01 Long term (current) use of anticoagulants; Z91.14 Patient's other noncompliance with medication regimen; Z79.1 Long term (current) use of non-steroidal anti-inflammatories (NSAID); Z79.3 Long term (current) use of hormonal contraceptives; Y92.9 Unspecified place or not applicable
CPT/HCPCS: 36415; 74177; 76705; 80048; 80053; 80307; 80320; 80329; 81003; 81015; 82150; 82270; 82306; 82550; 82607; 83690; 83735; 84443; 84702; 85025; 85027; 85610; 85730; 86850; 86900; 86901; 90686; 93005; 99284; A9270-GY; G0480; J2270; J2765; J3411; J3475; J3480; Q9967

== ENCOUNTER → 2018-09-11 18:48 | Emergency (ER) | payer SELFPAY ==
--- NOTE | 2018-09-11 19:29 | ED ---
Substance Abuse/Use - HPI Summary HPI Summary: Pt is a 28 y/o F presenting to the ED brought in by EMS for a heroin overdose. She has been using opiates for the past couple of weeks because the alcohol stopped helping her pancreatitis pain and instead made it worse. This is the second time she has injected heroin. Hx of PE in 2016. - History Of Current Complaint Chief Complaint: EDOverdose Stated Complaint: 2208 Time Seen by Provider: 09/11/18 19:04 Hx Obtained From: Patient Hx Last Menstrual Period: 09/29/16 Onset/Duration of Drug/ETOH Abuse: Hours Ingestion History: Type/Name Of Drug - heroin Overdose Characteristics: IV Timing Of Abuse: Intermittent Severity Initially: Moderate Severity Currently: Mild Aggravating Factor(s): Recent Stress - pancreatitis, alcohol making it worse Alleviating Factor(s): Nothing Associated Signs And Symptoms: Negative - Allergies/Home Medications Allergies/Adverse Reactions: Allergies Allergy/AdvReac Type Severity Reaction Status Date / Time No Known Allergies Allergy Verified 09/11/18 18:57 PMH/Surg Hx/FS Hx/Imm Hx Previously Healthy: No Endocrine/Hematology History: Reports: Hx Anemia Respiratory History: Reports: Hx Pulmonary Embolism Sensory History: Denies: Hx Contacts or Glasses, Hx Legally Blind, Hx Deafness, Hx Hearing Aid Opthamlomology History: Denies: Hx Contacts or Glasses, Hx Legally Blind Psychiatric History: Reports: Hx Anxiety, Hx Attention Deficit Hyperactivity Disorder, Hx Eating Disorder, Hx Depression, Hx Panic Disorder, Hx Inpatient Treatment, Hx Community Mental Health Tx, Hx Bipolar Disorder, Hx Suicide Attempt, Hx Substance Abuse Denies: Hx Post Traumatic Stress Disorder, Hx Schizophrenia - Bio. mom diagnosed with schizophrenia, Hx of Violent Episodes Against Others, Other Psychiatric Issues/Disorders Infectious Disease History: No Infectious Disease History: Denies: Traveled Outside the [place] in Last 30 Days - Family History Known Family History: Positive: Other - Adopted. Knows bioloigcal mom and denies any known DVT, PE or lung ca Negative: Cardiac Disease, Hypertension, Diabetes - Social History Alcohol Use: Daily Alcohol Amount: 1 drink daily Hx Substance Use: No Substance Use Type: Reports: None Hx Tobacco Use: Yes Smoking Status (MU): Light Every Day Tobacco Smoker Type: Cigarettes Amount Used/How Often: 5 CIGS PER DAY Review of Systems Negative: Fever Positive: no symptoms reported All Other Systems Reviewed And Are Negative: Yes Physical Exam - Summary Physical Exam Summary: Pt is a 28 y/o F presenting to the ED brought in by EMS for a heroin overdose. She has been using opiates for the past couple of weeks because the alcohol stopped helping her pancreatitis pain and instead made it worse. This is the second time she has injected heroin. Hx of PE in 2016. Appearance: Well-appearing, Well-nourished, lying in bed comfortably Skin: Warm, dry, no obvious rash Eyes: sclera anicteric, no conjunctival pallor ENT: mucous membranes moist, pharynx appears normal Neck: Supple, nontender Respiratory: Clear to auscultation, no signs of respiratory distress Cardiovascular: Normal S1, S2. No murmurs. Normal distal pulses in tibial and radial bilaterally. Abdomen: Soft, nontender, normal active bowel sounds present Musculoskeletal: Normal, Strength/ROM Intact Neurological: A&Ox3, awake and alert, mentation is normal, speech is fluent and appropriate Psychiatric: affect is normal, does not appear anxious or depressed Triage Information Reviewed: Yes Vital Signs On Initial Exam: Initial Vitals Temp Pulse Resp BP Pulse Ox 98.6 F 99 14 127/98 100 09/11/18 18:57 09/11/18 18:57 09/11/18 18:57 09/11/18 18:57 09/11/18 18:57 Vital Signs Reviewed: Yes Diagnostics - Vital Signs Vital Signs Temp Pulse Resp BP Pulse Ox 09/11/18 18:57 98.6 F 99 14 127/98 100 - Laboratory Lab Statement: Any lab studies that have been ordered have been reviewed, and results considered in the medical decision making process. Discharge - Sign-Out/Discharge Documenting (check all that apply): Patient Departure Patient Received Moderate/Deep Sedation with Procedure: No - Discharge Plan Condition: Improved Disposition: HOME Patient Education Materials: Narcotic Safety (ED) Referrals: Karol Stack MD [Primary Care Provider] - Additional Instructions: If you are planning on using heroin again, make sure to do so safely. Having narcan and someone with you to administer it can be the difference between life and . Narcan is available in pharmacies without a prescription. I would encourage you to contact the [facility], they are an excellent resource for health care for people who use opioids. - Attestation Statements Document Initiated by Scribe: Yes Documenting Scribe: Ritika Lai Provider For Whom Scribe is Documenting (Include Credential): Doyle Alejandro MD. Scribe Attestation: Ritika Urena, scribed for Doyle Alejandro MD. on 09/11/18 at 2044.
[2018-09-11 20:09] VITALS: BP 112/76
== END | disposition home or self-care (01) ==
LOC: ED 18:48
DX: T40.1X1A Poisoning by heroin, accidental (unintentional), initial encounter (principal); Y92.9 Unspecified place or not applicable; F17.210 Nicotine dependence, cigarettes, uncomplicated; Z86.711 Personal history of pulmonary embolism; Z79.01 Long term (current) use of anticoagulants; D64.9 Anemia, unspecified
CPT/HCPCS: 99283

== ENCOUNTER → 2018-10-16 16:14 | Emergency (ER) | payer MEDICAID, OTHER ==
[~2018-10-16 16:14] MED LIST: Folic Acid IV* 1 MG, Multiple Vitamin IV ADULT* 10 ML in NS 0.9% 1000 ML** 1,000 ML IV ONE; Iohexol 300* (CONTRAST) 10 ML SDV IV ONE; NS 0.9% 1000 ML** 1,000 ML IV ONE; Ondansetron INJ* 2 MG/ML VIAL IV ONE; Pantoprazole IV* 40 MG IV ONE; Thiamine IV* 100 MG, Folic Acid IV* 1 MG, Multiple Vitamin IV ADULT* 10 ML in NS 0.9% 1... IV ONE; Thiamine TAB* 100 MG TAB PO ONE; fentaNYL* 50 MCG/ML 2 ML VIAL (100 MCG VIAL) IV SLOW PU ONE
--- NOTE | 2018-10-16 16:36 | ED ---
Abdominal Pain/Female - HPI Summary HPI Summary: Patient is a 28-year-old female with history of alcohol abuse, pancreatitis with a recent admission to [facility] in July, 3 months ago for pancreatitis. She states over the past week she has developed worsening epigastric tenderness which radiates through to the back and she is also endorsing pain to the bilateral flanks. She denies any urinary symptoms. She states she has nausea with vomiting with blood in the emesis. She states she drank today to try to ease the pain of the pancreatitis. She denies any constipation or diarrhea. She denies any blood in the stools. She states she had a PE 2 years ago and was on Xarelto for approximately 1 year. She discontinued this a year ago as she ran out of health insurance and medicated was not paying anymore. Patient is a smoker. - History of Current Complaint Stated Complaint: PANCREATITIS PER EMS Time Seen by Provider: 10/16/18 16:15 Hx Obtained From: Patient Hx Last Menstrual Period: 09/29/16 ?: No Onset/Duration: Sudden Onset Timing: Constant Severity Initially: Moderate Severity Currently: Moderate Pain Scale Used: 0-10 Numeric Location: Epigastric Radiates: Yes Radiates to: Back Character: Sharp Aggravating Factor(s): Nothing Alleviating Factor(s): Nothing Associated Signs and Symptoms: Positive: Back Pain, Nausea, Vomiting - Risk Factors Ectopic Risk Factor: Negative Ovarian Torsion Risk Factor: Negative Allergies/Adverse Reactions: Allergies Allergy/AdvReac Type Severity Reaction Status Date / Time No Known Allergies Allergy Verified 09/11/18 18:57 PMH/Surg Hx/FS Hx/Imm Hx Previously Healthy: Yes Endocrine/Hematology History: Reports: Hx Anemia Respiratory History: Reports: Hx Pulmonary Embolism Sensory History: Denies: Hx Contacts or Glasses, Hx Legally Blind, Hx Deafness, Hx Hearing Aid Opthamlomology History: Denies: Hx Contacts or Glasses, Hx Legally Blind Psychiatric History: Reports: Hx Anxiety, Hx Attention Deficit Hyperactivity Disorder, Hx Eating Disorder, Hx Depression, Hx Panic Disorder, Hx Inpatient Treatment, Hx Community Mental Health Tx, Hx Bipolar Disorder, Hx Suicide Attempt, Hx Substance Abuse Denies: Hx Post Traumatic Stress Disorder, Hx Schizophrenia - Bio. mom diagnosed with schizophrenia, Hx of Violent Episodes Against Others, Other Psychiatric Issues/Disorders - Immunization History Hx Pertussis Vaccination: No Immunizations Up to Date: Yes - Family History Known Family History: Positive: Other - Adopted. Knows bioloigcal mom and denies any known DVT, PE or lung ca Negative: Cardiac Disease, Hypertension, Diabetes - Social History Occupation: Unemployed Lives: Alone Alcohol Use: Daily Alcohol Amount: several drinks daily Hx Substance Use: No Substance Use Type: Reports: None Hx Tobacco Use: Yes Smoking Status (MU): Light Every Day Tobacco Smoker Type: Cigarettes Amount Used/How Often: 5 CIGS PER DAY Review of Systems Negative: Fever, Chills, Fatigue Negative: Blurred Vision, Diplopia Negative: Sore Throat, Ear Ache Negative: Palpitations, Chest Pain Negative: Shortness Of Breath, Cough Positive: Abdominal Pain, Vomiting, Nausea. Negative: Diarrhea Genitourinary: Negative Positive: no symptoms reported, see HPI Negative: Arthralgia, Myalgia Neurological: Negative All Other Systems Reviewed And Are Negative: Yes Physical Exam Triage Information Reviewed: Yes Vital Signs Reviewed: Yes Appearance: Positive: Ill-Appearing, Thin, Cachectic Skin: Positive: Diaphoretic, Erythema @ - cheeks Neck: Positive: Supple, No Lymphadenopathy Respiratory/Lung Sounds: Positive: Clear to Auscultation, Breath Sounds Present Cardiovascular: Positive: Pulses are Symmetrical in both Upper and Lower Extremities. Negative: Leg Edema Left, Leg Edema Right Abdomen Description: Positive: Other: - tenderness to the mid epigastric region with radiation to the back Bowel Sounds: Positive: Present Musculoskeletal: Positive: Normal, Strength/ROM Intact Neurological: Positive: Speech Normal Psychiatric: Positive: Normal, Affect/Mood Appropriate AVPU Assessment: Alert Diagnostics - Laboratory Result Diagrams: 10/16/18 16:34 10/16/18 16:34 Lab Statement: Any lab studies that have been ordered have been reviewed, and results considered in the medical decision making process. Re-Evaluation - Re-Evaluation First Eval Re-Evaluation Time: 18:00 Comment: discussed options with patient and patient would like to be discharged home Abdominal Pain Fem Course/Dx - Course Course Of Treatment: During the course treatment, the patient is evaluated for mid epigastric tenderness which radiates through to the back. She is also endorsing bilateral flank pain. Denies any urinary symptoms otherwise. On arrival, patient appears ill, conjunctival injection, erythematous face and appears intoxicated. Patient is slurring her words. She is tearful and stating she is having epigastric tenderness. She rates the pain an 9/10. 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 she denies any fevers, sweats, chills. CT abdomen and pelvis was not obtained as lipase was 59. She currently does not have pancreatitis. However she is currently and obviously withdrawing from alcohol. She does not have shaking, tremors yet, however she is becoming agitated. Pending alcohol level, she is signed out to Alyssa Sanchez PA-C. Patient states she will decide soon if she would like to stay for alcohol withdraw or return home to continue to drink alcohol. While in the ED she is given 2 L fluids, one banana bag, Zofran and fentaynl. - Diagnoses Differential Diagnosis: Positive: Other - pancreatitis, alcohol withdrawal, alcohol intoxication Provider Diagnoses: Abdominal pain, Alcohol withdrawal Discharge - Sign-Out/Discharge Documenting (check all that apply): Patient Departure, Sign-Out Patient Signing out patient TO: Martine Sanchez Patient Received Moderate/Deep Sedation with Procedure: No - Discharge Plan Condition: Good Disposition: HOME Prescriptions: Omeprazole CAP (NF) [Prilosec CAP* 20 MG] 20 mg PO DAILY #30 cap. Ondansetron ODT TAB* [Zofran 4 MG Odt TAB*] 4 mg PO Q6H PRN #20 tab.odt PRN Reason: Nausea Patient Education Materials: Abdominal Pain (ED) Referrals: Allison Blackwood MD [Medical Doctor] - Karol Stack MD [Medical Doctor] - Additional Instructions: Follow up with primary within 5 days take omeprazole daily take zofran every 6 hours for nausea as needed drink plenty of fluids Return to ED if develop any new or worsening symptoms - Billing Disposition and Condition Condition: GOOD Disposition: Home
[2018-10-16 16:43] LABS: ABS Basophils 0 10^3/ul (0-0.2); ABS Eosinophils 0 10^3/ul (0-0.6); ABS Lymphocytes 1.4 10^3/ul (1.0-4.8); ABS Monocytes 0.3 10^3/ul (0-0.8); ABS Neutrophils 3.5 10^3/ul (1.5-7.7); ABS Nucleated RBC 0 10^3/ul; Eosinophil % 0.1 %; Hematocrit 45 % (35-47); Hemoglobin 15.2 g/dl (12.0-16.0); Lymphocyte % 27.4 %; Mean Corpuscular HGB Conc 34 g/dl (31-36); Mean Corpuscular Hemoglobin 32 pg (27-31); Mean Corpuscular Volume 94 fL (80-97); Mean Platelet Volume 7.9 fL (7.4-10.4); Nucleated Red Blood Cells % 0.1; Platelet Count 233 10^3/ul (150-450); Red Blood Count 4.79 10^6/ul (4.00-5.40); Red Cell Distribution Width 13 % (10.5-15); White Blood Count 5.3 10^3/ul (3.5-10.8)
[2018-10-16 17:03] LABS: ALT 15 U/L (7-52); Albumin 4.7 g/dL (3.2-5.2); Albumin/Globulin Ratio 1.3 (1-3); Alkaline Phosphatase 110 U/L (34-104); Amylase 66 U/L (29-103); Blood Urea Nitrogen 12 mg/dL (6-24); C Reactive Protein < 1.00 mg/L (<8.01); CO2 Carbon Dioxide 32 mmol/L (22-32); Calcium 10.3 mg/dL (8.6-10.3); Chloride 95 mmol/L (101-111); EGFR African American 72.9 (>60); EGFR Non-African American 60.2 (>60); Globulin 3.7 g/dL (2-4); Glucose 158 mg/dL (70-100); Magnesium 2.6 mg/dL (1.9-2.7); Sodium 141 mmol/L (135-145); Total Protein 8.4 g/dL (6.4-8.9)
[2018-10-16 17:07] LABS: HCG Pregnancy < 0.60 mIU/mL
[2018-10-16 17:10] LABS: AST 39 U/L (13-39); Anion Gap 14 mmol/L (2-11); Potassium 3.4 mmol/L (3.5-5.0)
[2018-10-16 17:16] LABS: INR 0.8 (0.77-1.02)
[2018-10-16 17:33] LABS: Alcohol 316 mg/dL (<10)
--- NOTE | 2018-10-16 18:00 | ED ---
Progress - Progress Note Progress Note: patient signed out by shilpi for dispo. completed fluids and is feeling better. discussed admission for detox vs going home and patient wants to go home. goes not want to stop drinking at this time. is following up with [facility] next week. Re-Evaluation - Re-Evaluation First Eval Re-Evaluation Time: 18:00 Comment: discussed options with patient and patient would like to be discharged home Course/Dx - Course Course Of Treatment: During the course treatment, the patient is evaluated for mid epigastric tenderness which radiates through to the back. She is also endorsing bilateral flank pain. Denies any urinary symptoms otherwise. On arrival, patient appears ill, conjunctival injection, erythematous face and appears intoxicated. Patient is slurring her words. She is tearful and stating she is having epigastric tenderness. She rates the pain an 9/10. 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 she denies any fevers, sweats, chills. CT abdomen and pelvis was not obtained as lipase was 59. She currently does not have pancreatitis. However she is currently and obviously withdrawing from alcohol. She does not have shaking, tremors yet, however she is becoming agitated. Pending alcohol level, she is signed out to Alyssa Sanchez PA-C. Patient states she will decide soon if she would like to stay for alcohol withdraw or return home to continue to drink alcohol. While in the ED she is given 2 L fluids, one banana bag, Zofran and fentaynl. patient was feeling better. discussed admission vs discharge and patient wants to be discharge. will place on omeprazole as likely has gastritis. gave zofran as needed for nausea. gave resources if wants to stop drinking. told follow up with primary. patient understand and agrees with plan. - Diagnoses Provider Diagnoses: Abdominal pain, Alcohol withdrawal Discharge - Sign-Out/Discharge Documenting (check all that apply): Receiving Sign-Out Receiving patient FROM: Shilpi Ruiz - Discharge Plan Prescriptions: Omeprazole CAP (NF) [Prilosec CAP* 20 MG] 20 mg PO DAILY #30 cap. Ondansetron ODT TAB* [Zofran 4 MG Odt TAB*] 4 mg PO Q6H PRN #20 tab.odt PRN Reason: Nausea Patient Education Materials: Abdominal Pain (ED) Referrals: Allison Blackwood MD [Medical Doctor] - Karol Stack MD [Medical Doctor] - Additional Instructions: Follow up with primary within 5 days take omeprazole daily take zofran every 6 hours for nausea as needed drink plenty of fluids Return to ED if develop any new or worsening symptoms
[2018-10-16 20:32] VITALS: BP 101/62
== END | disposition home or self-care (01) ==
LOC: ED 16:14
DX: R10.13 Epigastric pain (principal); F10.239 Alcohol dependence with withdrawal, unspecified; Z86.711 Personal history of pulmonary embolism; D64.9 Anemia, unspecified; F90.9 Attention-deficit hyperactivity disorder, unspecified type; F17.210 Nicotine dependence, cigarettes, uncomplicated
CPT/HCPCS: 36415; 80053; 80320; 82150; 83605; 83690; 83735; 84484; 84702; 85025; 85610; 86140; 96361; 96374; 96375; 99282; A9270-GY; G0480; J2405; J3010; J3411

== ENCOUNTER 2018-10-22 16:42 | Inpatient (IN) | payer OTHER ==
--- NOTE | 2018-10-22 17:18 | ED ---
Abdominal Pain/Female - HPI Summary HPI Summary: A 28 y/o F presents to ED with hematemesis onset a few days ago. Associated sx: back pain, abd pain, decreased oral intake. She denies SI. She states the pain is "really bad" and rates it as 8-10 out of 10. Aggravating factors: movement. Her last drink was early this AM, hard liquor and beer. Pt says she's drinking due to the pain. No daily medications. Denies surgical history. She smokes cigarette and marijuana. She states she is not interested in detox. [facility]: 2-3 weeks ago. PMhx: PE, pancreatitis, ETOH abuse. NKA. - History of Current Complaint Chief Complaint: EDAbdPain Stated Complaint: VOMITING BLOOD IM IN A LOT OF PAIN PER PT Time Seen by Provider: 10/22/18 17:15 Hx Obtained From: Patient, Family/Marine Geologist - mom present Hx Last Menstrual Period: 09/29/16 Onset/Duration: Lasting Days, Still Present Timing: Constant Severity Initially: Severe Severity Currently: Severe Pain Intensity: 8 Pain Scale Used: 0-10 Numeric Location: Diffuse Associated Signs and Symptoms: Positive: Nausea, Vomiting. Negative: Fever, Other: - pos: back pain, abd pain, decreased oral intake. neg: SI Allergies/Adverse Reactions: Allergies Allergy/AdvReac Type Severity Reaction Status Date / Time No Known Allergies Allergy Verified 10/22/18 17:08 PMH/Surg Hx/FS Hx/Imm Hx Previously Healthy: No Endocrine/Hematology History: Reports: Hx Anemia Denies: Hx Diabetes Cardiovascular History: Denies: Hx Hypertension Respiratory History: Reports: Hx Pulmonary Embolism History: Denies: Hx Renal Disease Sensory History: Denies: Hx Contacts or Glasses, Hx Legally Blind, Hx Deafness, Hx Hearing Aid Opthamlomology History: Denies: Hx Contacts or Glasses, Hx Legally Blind Psychiatric History: Reports: Hx Anxiety, Hx Attention Deficit Hyperactivity Disorder, Hx Eating Disorder, Hx Depression, Hx Panic Disorder, Hx Inpatient Treatment, Hx Community Mental Health Tx, Hx Bipolar Disorder, Hx Suicide Attempt, Hx Substance Abuse Denies: Hx Post Traumatic Stress Disorder, Hx Schizophrenia - Bio. mom diagnosed with schizophrenia, Hx of Violent Episodes Against Others, Other Psychiatric Issues/Disorders Infectious Disease History: No Infectious Disease History: Denies: Traveled Outside the [place] in Last 30 Days - Family History Known Family History: Positive: Other - Adopted. Knows biological mom and denies any known DVT, PE or lung CA Negative: Cardiac Disease, Hypertension, Diabetes - Social History Occupation: Unemployed Lives: Alone Alcohol Use: Daily Alcohol Amount: several drinks daily Hx Substance Use: No Substance Use Type: Reports: None Substance Use Comment - Amount & Last Used: heroin- 2 weeks ago; marijuana today Hx Tobacco Use: Yes Smoking Status (MU): Light Every Day Tobacco Smoker Type: Cigarettes Amount Used/How Often: 5 CIGS PER DAY Review of Systems Negative: Fever Positive: Abdominal Pain, Vomiting, Nausea, Other - pos: hematemesis Musculoskeletal: Other - pos: back pain Psychological: Other - neg: SI All Other Systems Reviewed And Are Negative: Yes Physical Exam - Summary Physical Exam Summary: GENERAL: Patient is a well-developed and nourished FEMALE who is lying comfortable in the stretcher. Patient is not in any acute respiratory distress. HEAD AND FACE: Normocephalic EYES: PERRLA, EOMI x 2. EARS: Hearing grossly intact. MOUTH: Oropharynx within normal limits. NECK: Supple, trachea is midline, no adenopathy, no JVD, no carotid bruit. CHEST: Symmetric, no tenderness at palpation LUNGS: Clear to auscultation bilaterally. No wheezing or crackles. CVS: Tachy, regular rhythm, S1 and S2 present, no murmurs or gallops appreciated. ABDOMEN: Soft, diffusely tender to palpation but worse in epigastrium. Bowel sounds are normal. No abdominal abnormal pulsations. EXTREMITIES: Full ROM in all major joints, no edema, no cyanosis or clubbing. NEURO: Alert and oriented x 3. No acute neurological deficits. Speech is normal and follows commands. SKIN: Dry and warm Triage Information Reviewed: Yes Vital Signs On Initial Exam: Initial Vitals Temp Pulse Resp BP Pulse Ox 98.3 F 137 19 124/96 99 10/22/18 17:05 10/22/18 17:05 10/22/18 17:05 10/22/18 17:05 10/22/18 17:05 Vital Signs Reviewed: Yes Diagnostics - Vital Signs Vital Signs Temp Pulse Resp BP Pulse Ox 10/22/18 17:05 98.3 F 137 19 124/96 99 - Laboratory Result Diagrams: 10/22/18 17:46 10/22/18 17:46 Lab Statement: Any lab studies that have been ordered have been reviewed, and results considered in the medical decision making process. - EKG 1717 Cardiac Rate: Tachycardia - 113bpm EKG Rhythm: Sinus Tachycardia Summary of EKG Findings: R atrial enlargement Abdominal Pain Fem Course/Dx - Course Course Of Treatment: Pt is a 28 y/o F presenting with hematemesis, diffuse abd pain onset a few days ago. Her last drink was early this AM. She states she is not interested in detox. PMhx: PE, pancreatitis, ETOH abuse. Critical lab values: lactic acid: 6.2. Lab work reveals elevated Hgb and Hct, INR: 1.07, potassium: 2.9, calcium: 87, anion gap: 24, creatinine: 1.08, glucose: 112, AST : 53, lipase: 183. Pt will be signed out to Dr. Alejandro at shift change pending CT results. - Diagnoses Provider Diagnoses: Abdominal pain - Critical Care Time Critical Care Time: 30-74 min Discharge - Sign-Out/Discharge Documenting (check all that apply): Sign-Out Patient Signing out patient TO: Doyle Alejandro - pending CT results - Discharge Plan Referrals: No Primary Care Phys,NOPCP [Primary Care Provider] - - Attestation Statements Document Initiated by Scribe: Yes Documenting Scribe: Basim Blackmon Provider For Whom Scribe is Documenting (Include Credential): Dr. Maryanne Dumont MD Scribe Attestation: Basim Urena, scribed for Dr. Maryanne Dumont MD on 10/22/18 at 1843. Scribe Documentation Reviewed: Yes Provider Attestation: The documentation as recorded by the Basim pisano accurately reflects the service I personally performed and the decisions made by me, Dr. Maryanne Dumont MD Status of Scribe Document: Viewed
[2018-10-22] MEDS ORDERED: NS 0.9% 1000 ML** 1,000 ML IV ONE ×2 (17:19→18:29)
[2018-10-22] MEDS ORDERED: Ondansetron INJ* 2 MG/ML VIAL IV ONE (17:19)
[2018-10-22] MEDS ORDERED: Morphine 4 MG/ML VIAL (1 ml) 4 MG/ML VIAL IV ONE ×2 (17:34→21:09)
[2018-10-22 18:02] LABS: ABS Basophils 0 10^3/ul (0-0.2); ABS Eosinophils 0 10^3/ul (0-0.6); ABS Lymphocytes 1.8 10^3/ul (1.0-4.8); ABS Monocytes 0.6 10^3/ul (0-0.8); ABS Neutrophils 6.1 10^3/ul (1.5-7.7); ABS Nucleated RBC 0 10^3/ul; Eosinophil % 0.1 %; Hematocrit 49 % (35-47); Hemoglobin 16.8 g/dl (12.0-16.0); Lymphocyte % 20.9 %; Mean Corpuscular HGB Conc 34 g/dl (31-36); Mean Corpuscular Hemoglobin 32 pg (27-31); Mean Corpuscular Volume 94 fL (80-97); Mean Platelet Volume 7.7 fL (7.4-10.4); Nucleated Red Blood Cells % 0.1; Platelet Count 281 10^3/ul (150-450); Red Blood Count 5.24 10^6/ul (4.00-5.40); Red Cell Distribution Width 14 % (10.5-15); White Blood Count 8.6 10^3/ul (3.5-10.8)
[2018-10-22 18:19] LABS: ALT 21 U/L (7-52); AST 53 U/L (13-39); Albumin 4.5 g/dL (3.2-5.2); Albumin/Globulin Ratio 1.4 (1-3); Alkaline Phosphatase 93 U/L (34-104); Amylase 79 U/L (29-103); Anion Gap 24 mmol/L (2-11); BUN/Creatinine Ratio 14.8 (8-20); Blood Urea Nitrogen 16 mg/dL (6-24); C Reactive Protein < 1.00 mg/L (<8.01); CO2 Carbon Dioxide 31 mmol/L (22-32); Calcium 9.8 mg/dL (8.6-10.3); Chloride 87 mmol/L (101-111); EGFR African American 73.6 (>60); EGFR Non-African American 60.9 (>60); Globulin 3.3 g/dL (2-4); Glucose 112 mg/dL (70-100); Magnesium 2.5 mg/dL (1.9-2.7); Potassium 2.9 mmol/L (3.5-5.0); Sodium 142 mmol/L (135-145); Total Protein 7.8 g/dL (6.4-8.9)
[2018-10-22 18:21] LABS: INR 1.07 (0.77-1.02)
[2018-10-22 18:25] LABS: HCG Pregnancy < 0.60 mIU/mL
[2018-10-22] MEDS ORDERED: KCL 20 MEQ/100 ML IVPREMIX* 20 MEQ/100 ML BAG IV ONE (18:29)
[2018-10-22 18:36] LABS: Alcohol 164 mg/dL (<10)
[2018-10-22] MEDS ORDERED: Iohexol 300* (CONTRAST) 10 ML SDV IV ONE (18:56)
--- NOTE | 2018-10-22 19:07 | ED ---
Progress - Progress Note Progress Note: The patient is a sign-out from Dr. Maryanne Dumont MD, to Dr. Doyle Alejandro MD, at change of shift at 1900 pending Abd/Pel CT and disposition. Repeat lactic acid is 4. Abd/Pel CT reveals reveals results consistent with pancreatitis and espophagitis. I discussed admission with Dr. Carty, who accepts the patient at 21:20. She is diagnosed with pancreatitis. The patient agrees with this plan and understands the need for admission at this time. - Results/Orders Results/Orders: Abd/Pel CT: 1. While there has been decrease in overall pancreatic size since prior study, the pancreatic head remains mildly enlarged with peripancreatic fluid/stranding extending around the adjacent duodenum concerning for pancreatitis or, less likely, duodenitis. Recommend correlation with amylase and lipase levels. No evidence of necrosis or pseudocyst. 2. Continued wall thickening of lower esophagus concerning for esophagitis. ED physician has reviewed this report. Re-Evaluation - Re-Evaluation First Eval Re-Evaluation Time: 20:50 Change: Worse Comment: We spoke concerning imaging results and admission. Per nurse, she is having increased abd pain. Course/Dx - Course Course Of Treatment: Pt is a 28 y/o F presenting with hematemesis, diffuse abd pain onset a few days ago. Her last drink was early this AM. She states she is not interested in detox. PMhx: PE, pancreatitis, ETOH abuse. Critical lab values: lactic acid: 6.2. Lab work reveals elevated Hgb and Hct, INR: 1.07, potassium: 2.9, calcium: 87, anion gap: 24, creatinine: 1.08, glucose: 112, AST : 53, lipase: 183. Pt will be signed out to Dr. Alejandro at shift change pending CT results. - Diagnoses Provider Diagnoses: Pancreatitis, Pancreatitis, alcoholic, acute - Provider Notifications Discussed Care Of Patient With: Brandi Carty - hospitalist Time Discussed With Above Provider: 21:20 Instructed by Provider To: Other - Dr. Carty accepts the patient for admission at this time. - Critical Care Time Critical Care Time: 30-74 min Discharge - Sign-Out/Discharge Documenting (check all that apply): Patient Departure - [place] [facility] [place] Receiving Sign-Out Receiving patient FROM: Maryanne Dumont - Patient is a sign-out from Dr. Nam Dumont MD, to Dr. Doyle Alejandro MD, at change of shift at 1900 pending Abd /Pel CT and disposition. Patient Received Moderate/Deep Sedation with Procedure: No - Discharge Plan Condition: Stable Disposition: ADMITTED TO [facility] - Billing Disposition and Condition Condition: STABLE Disposition: Admitted to [facility] - Attestation Statements Document Initiated by Scribe: Yes Documenting Scribe: Rajwinder Lo Provider For Whom Shaq is Documenting (Include Credential): Dr. Doyle Alejandro MD Scribe Attestation: Rajwinder Urena scribed for Dr. Doyle Alejandro MD on 10/23/18 at 0441. Scribe Documentation Reviewed: Yes Provider Attestation: The documentation as recorded by the Rajwinder pisano accurately reflects the service I personally performed and the decisions made by me, Dr. Doyle Alejandro MD Status of Scribe Document: Viewed
[2018-10-22] MEDS ORDERED: PROCHLORPERAZINE INJ 5 MG/ML 2 ML VIAL IV ONE (21:09)
[2018-10-22] MEDS ORDERED: NS 0.9% 1000 ML** 2,000 ML IV ONE (21:10)
[2018-10-22] MEDS ORDERED: LORazepam TAB(*) 0.5 MG PO PRN (21:55)
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
[2018-10-22] MEDS: KCL 20 MEQ/100 ML IVPREMIX* 20 MEQ/100 ML BAG IV SCH (23:50)
[2018-10-23] MEDS: Sucralfate TAB* 1 GM PO SCH ×5 (02:40→19:31)
[2018-10-23] MEDS: Pantoprazole IV* 40 MG IV SCH ×2 (02:40→08:54)
[2018-10-23] MEDS: Morphine 4 MG/ML VIAL (1 ml) 4 MG/ML VIAL IV PRN ×5 (02:41→21:18)
[2018-10-23] MEDS: Ondansetron INJ* 2 MG/ML VIAL IV PRN (02:42)
[2018-10-23] MEDS: KCL 20 MEQ/100 ML IVPREMIX* 20 MEQ/100 ML BAG IV SCH (03:31)
[2018-10-23] MEDS: NS 0.9% 1000 ML** 1,000 ML IV SCH ×3 (06:02→21:18)
[2018-10-23] MEDS ORDERED: NS 0.9% 1000 ML** 1,000 ML IV ONE ×2 (06:45→18:31)
[2018-10-23 07:12] LABS: Hematocrit 37 % (35-47); Hemoglobin 12.2 g/dl (12.0-16.0); Mean Corpuscular HGB Conc 33 g/dl (31-36); Mean Corpuscular Hemoglobin 32 pg (27-31); Mean Corpuscular Volume 95 fL (80-97); Mean Platelet Volume 7.4 fL (7.4-10.4); Platelet Count 147 10^3/ul (150-450); Red Blood Count 3.83 10^6/ul (4.00-5.40); Red Cell Distribution Width 14 % (10.5-15); White Blood Count 5.5 10^3/ul (3.5-10.8)
[2018-10-23 07:26] LABS: BUN/Creatinine Ratio 9.6 (8-20); Calcium 7.6 mg/dL (8.6-10.3); EGFR African American 76.9 (>60); EGFR Non-African American 63.6 (>60); Potassium 3.6 mmol/L (3.5-5.0)
[2018-10-23] MEDS: Heparin VIAL(*) 5000 UNITS/ML VIAL (FIVE THOUSAND) SUBCUT SCH ×2 (08:54→19:33)
--- NOTE | 2018-10-23 13:24 | PN ---
Subjective Date of Service: 10/23/18 Interval History: Ms. Ruano is feeling a little better today. She reports the pain has decrease slightly from yesterday and she has not vomited today. Mild nausea. She just received a dose of pain medication prior to my exam, but reported 7/10 epigastric pain prior and 4/10 pain now. Denies CP, SOB. Does want to get sober and abstain from alcohol. Family History: Unchanged from Admission Social History: Unchanged from Admission Past Medical History: Unchanged from Admission Objective Active Medications: Heparin Sodium (Porcine) (Heparin Vial(*)) 5,000 units SUBCUT Q12HR [facility] Sodium Chloride (Ns 0.9% 1000 Ml) 1,000 mls @ 125 mls/hr IV PER RATE CASH Lorazepam (Ativan Tab(*)) 0 mg PO Q2H PRN; Protocol ANXIETY Morphine Sulfate (Morphine Vial*) 4 mg IV Q4H PRN PAIN - MILD Ondansetron HCl (Zofran Inj*) 4 mg IV Q6H PRN NAUSEA Pantoprazole Sodium (Protonix Iv*) 40 mg IV DAILY [facility] Prochlorperazine Edisylate (Compazine Inj*) 10 mg IV Q6H PRN NAUSEA/VOMITING Sucralfate (Carafate*) 1 gm PO ACHS [facility] Vital Signs - 8 hr 10/23/18 10/23/18 10/23/18 07:19 07:49 08:54 Temperature 97.6 F Pulse Rate 86 Respiratory 16 20 18 Rate Blood Pressure 92/50 (mmHg) O2 Sat by Pulse 97 Oximetry 10/23/18 10/23/18 10/23/18 09:29 10:22 11:40 Temperature 97.8 F 97.9 F Pulse Rate 86 83 Respiratory 16 18 16 Rate Blood Pressure 98/67 111/71 (mmHg) O2 Sat by Pulse 97 98 Oximetry Oxygen Devices in Use Now: None Appearance: Young adult female sitting in bed in NAD Eyes: No Scleral Icterus Ears/Nose/Mouth/Throat: Mucous Membranes Moist Neck: NL Appearance and Movements; NL JVP, Trachea Midline Respiratory: Symmetrical Chest Expansion and Respiratory Effort, Clear to Auscultation Cardiovascular: NL Sounds; No Murmurs; No JVD, RRR Abdominal: - - Tender throughout, particularly epigastric and LUQ Extremities: No Edema Skin: No Rash or Ulcers Neurological: Alert and Oriented x 3 Lines/Tubes/Other Access: Clean, Dry and Intact Peripheral IV Nutrition: Taking PO's Result Diagrams: 10/23/18 06:51 10/23/18 06:51 Assess/Plan/Problems-Billing Assessment: Ms. Ruano is a 28 yo F with PMH of alcohol abuse and PE not on anticoagulation ; who presented to the ED with c/o abdominal pain and was found to have acute pancreatitis secondary to alcohol abuse. - Patient Problems (1) Pancreatitis, alcoholic, acute Code(s): K85.20 - ALCOHOL INDUCED ACUTE PANCREATITIS WITHOUT NECROSIS OR INFCT Comment: - Improved pain and nausea today - Tolerating clear liquids - Continue to trend lipase - Continue morphine, Zofran (2) Alcohol abuse Code(s): F10.10 - ALCOHOL ABUSE, UNCOMPLICATED Comment: - Verbalizes desire to abstain - Social work following (3) Lactic acidosis Code(s): E87.2 - ACIDOSIS Comment: - Trending down, but remains elevated - Secondary to hypovolemia and emesis; no concerns for infection - Give an additional NS bolus and recheck later today (4) History of pulmonary embolus (PE) Code(s): Z86.711 - PERSONAL HISTORY OF PULMONARY EMBOLISM Comment: - Approximately 2 years ago, unprovoked per patient - States she followed with hematology in [place] and etiology could not be identified - Not on anticoagulation and has been noncompliant with Xarelto in the past d/t insurance (5) DVT prophylaxis Comment: - Heparin SQ (6) Full code status Code(s): Z78.9 - OTHER SPECIFIED HEALTH STATUS Comment: Status and Disposition: Inpatient for acute pancreatitis. Anticipate d/c home when medically stable, likely 2-3 more days. Social work involved d/t housing concerns. Attending: Austin Yo
[2018-10-23 14:59] LABS: Urine Appearance Cloudy; Urine Bilirubin Negative (Negative); Urine Blood Negative (Negative); Urine Color Yellow; Urine Glucose Negative (Negative); Urine Ketones Negative (Negative); Urine Nitrite Negative (Negative); Urine Protein Negative (Negative); Urine Specific Gravity 1.006 (1.010-1.030); Urine Urobilinogen Negative (Negative)
[2018-10-23] MEDS ORDERED: Mouth Piece, Nicotine* 1 EACH CARTRIDGE INH ONE (15:45)
[2018-10-23] MEDS: Nicotine Inhaler* 10 MG AMP INH PRN (16:30)
[2018-10-23] MEDS ORDERED: Melatonin 3 MG TAB PO PRN (22:07)
[2018-10-24] MEDS: Morphine 4 MG/ML VIAL (1 ml) 4 MG/ML VIAL IV PRN ×5 (00:51→21:03)
[2018-10-24] MEDS: NS 0.9% 1000 ML** 1,000 ML IV SCH ×3 (04:43→15:30)
[2018-10-24 07:22] LABS: BUN/Creatinine Ratio 9.5 (8-20); Calcium 8.2 mg/dL (8.6-10.3); EGFR African American 113.9 (>60); EGFR Non-African American 94.1 (>60); Potassium 3.6 mmol/L (3.5-5.0)
[2018-10-24] MEDS: Pantoprazole IV* 40 MG IV SCH (07:45)
[2018-10-24] MEDS: Sucralfate TAB* 1 GM PO SCH ×4 (07:45→21:16)
[2018-10-24] MEDS: Heparin VIAL(*) 5000 UNITS/ML VIAL (FIVE THOUSAND) SUBCUT SCH ×2 (07:46→21:07)
[2018-10-24] MEDS: Nicotine Inhaler* 10 MG AMP INH PRN ×2 (08:01→21:02)
[2018-10-24] MEDS ORDERED: Acetaminophen TAB* 325 MG PO PRN (11:35)
[2018-10-24] MEDS: Acetaminophen TAB* 325 MG PO SCH ×2 (12:17→21:17)
--- NOTE | 2018-10-24 13:25 | PN ---
Subjective Date of Service: 10/24/18 Interval History: Patient is having improving abdominal pain in her epigastric area at 6/10 without medications. Patient also complains of lower abdominal pain. Patient denies F/C, N/V, dysuria, palpitations, CP, SOB, dizziness, or other pain. Family History: Unchanged from Admission Social History: Unchanged from Admission Past Medical History: Unchanged from Admission Objective Active Medications: Acetaminophen (Tylenol Tab*) 975 mg PO Q8H [facility] Last Admin: 10/24/18 12:17 Dose: 975 mg Heparin Sodium (Porcine) (Heparin Vial(*)) 5,000 units SUBCUT Q12HR [facility] Last Admin: 10/24/18 07:46 Dose: 5,000 units Sodium Chloride (Ns 0.9% 1000 Ml) 1,000 mls @ 75 mls/hr IV PER RATE [facility] Last Admin: 10/24/18 12:17 Dose: 75 mls/hr Lorazepam (Ativan Tab(*)) 0 mg PO Q2H PRN; Protocol PRN Reason: ANXIETY Melatonin (Melatonin) 3 mg PO BEDTIME PRN PRN Reason: SLEEP Last Admin: 10/24/18 00:55 Dose: 3 mg Morphine Sulfate (Morphine Vial*) 4 mg IV Q4H PRN PRN Reason: PAIN - MILD Last Admin: 10/24/18 09:11 Dose: 4 mg Nicotine (Nicotine Inhaler*) 10 mg INH Q2H PRN PRN Reason: CRAVING Last Admin: 10/24/18 08:01 Dose: 10 mg Ondansetron HCl (Zofran Inj*) 4 mg IV Q6H PRN PRN Reason: NAUSEA Last Admin: 10/23/18 02:42 Dose: 4 mg Oxycodone HCl (Roxycodone Tab*) 5 mg PO Q4H PRN PRN Reason: PAIN Pantoprazole Sodium (Protonix Tab*) 40 mg PO BID CASH Prochlorperazine Edisylate (Compazine Inj*) 10 mg IV Q6H PRN PRN Reason: NAUSEA/VOMITING Sucralfate (Carafate*) 1 gm PO ACHS [facility] Last Admin: 10/24/18 11:35 Dose: 1 gm Vital Signs - 8 hr 10/24/18 10/24/18 10/24/18 06:19 07:03 08:00 Temperature 98.7 F Pulse Rate 80 Respiratory 17 18 14 Rate Blood Pressure 118/87 (mmHg) O2 Sat by Pulse 100 Oximetry 10/24/18 10/24/18 10/24/18 08:57 09:11 10:59 Temperature 98.5 F 98.0 F Pulse Rate 89 80 Respiratory 18 18 16 Rate Blood Pressure 118/78 126/84 (mmHg) O2 Sat by Pulse 99 100 Oximetry Oxygen Devices in Use Now: None Appearance: Patient is a 28yo female who appears stated age and is sitting in the bed in NAD. Eyes: No Scleral Icterus, PERRLA Ears/Nose/Mouth/Throat: NL Teeth, Lips, Gums, Clear Oropharnyx, Mucous Membranes Moist Neck: NL Appearance and Movements; NL JVP Respiratory: Symmetrical Chest Expansion and Respiratory Effort, Clear to Auscultation Cardiovascular: NL Sounds; No Murmurs; No JVD, RRR, No Edema Abdominal: No Hepatosplenomegaly, - - Epigastric tenderness. Tenderness over previous heparin injection site. Normoactive bowel sounds. Lymphatic: No Cervical Adenopathy Extremities: No Edema, No Clubbing, Cyanosis Skin: No Nodules or Sclerosis, - - Bruise on abdomen at site of heparin injection. Neurological: Alert and Oriented x 3, NL Sensation, NL Muscle Strength and Tone , - - CN II-XII intact. Result Diagrams: 10/23/18 06:51 10/24/18 06:31 Assess/Plan/Problems-Billing Assessment: Ms. Ruano is a 28 yo F with PMH of alcohol abuse and PE not on anticoagulation ; who presented to the ED with c/o abdominal pain and was found to have acute pancreatitis secondary to alcohol abuse which is improving. - Patient Problems (1) Pancreatitis, alcoholic, acute Current Visit: No Status: Acute Code(s): K85.20 - ALCOHOL INDUCED ACUTE PANCREATITIS WITHOUT NECROSIS OR INFCT SNOMED Code(s): 363189856 Comment: - Improved pain and nausea today - Tolerating clear liquids, advance to low-fat full liquid. - Continue morphine, oxycodone, Zofran (2) Alcohol abuse Current Visit: Yes Status: Acute Code(s): F10.10 - ALCOHOL ABUSE, UNCOMPLICATED SNOMED Code(s): 65918573 Comment: - Verbalizes desire to abstain - Social work following (3) Lactic acidosis Current Visit: Yes Status: Acute Code(s): E87.2 - ACIDOSIS SNOMED Code(s) : 80247017 Comment: - Resolved. - From Hypovolemia (4) History of pulmonary embolus (PE) Current Visit: No Status: Acute Code(s): Z86.711 - PERSONAL HISTORY OF PULMONARY EMBOLISM SNOMED Code(s): 177614632 Comment: - Approximately 2 years ago, unprovoked per patient - States she followed with hematology in [place] and etiology could not be identified - Not on anticoagulation and has been noncompliant with Xarelto in the past d/t insurance - Follow up outpatient with Hemeatology. (5) DVT prophylaxis Current Visit: No Status: Acute Code(s): FJT5001 - SNOMED Code(s): 240888648 Comment: - Heparin SQ Status and Disposition: Inpatient for acute pancreatitis. Hopeful discharge tomorrow.
[2018-10-24] MEDS: Ondansetron INJ* 2 MG/ML VIAL IV PRN (18:15)
[2018-10-24] MEDS: oxyCODONE TAB* 5 MG TAB PO PRN ×2 (18:15→22:47)
[2018-10-24] MEDS: PROCHLORPERAZINE INJ 5 MG/ML 2 ML VIAL IV PRN (21:13)
[2018-10-24] MEDS: Pantoprazole TAB * 40 MG TAB PO SCH (21:16)
[2018-10-25] MEDS: Acetaminophen TAB* 325 MG PO SCH (03:22)
[2018-10-25] MEDS: Morphine 4 MG/ML VIAL (1 ml) 4 MG/ML VIAL IV PRN (06:23)
[2018-10-25 06:57] LABS: ABS Basophils 0 10^3/ul (0-0.2); ABS Eosinophils 0.1 10^3/ul (0-0.6); ABS Lymphocytes 1.8 10^3/ul (1.0-4.8); ABS Monocytes 0.2 10^3/ul (0-0.8); ABS Neutrophils 1.5 10^3/ul (1.5-7.7); ABS Nucleated RBC 0 10^3/ul; Eosinophil % 2.9 %; Hematocrit 34 % (33-41); Hemoglobin 11.5 g/dL (12.0-16.0); Lymphocyte % 49.8 %; Mean Corpuscular HGB Conc 34 g/dL (31-36); Mean Corpuscular Hemoglobin 33 pg (27-31); Mean Corpuscular Volume 96 fL (80-97); Mean Platelet Volume 7.7 fL (7.4-10.4); Nucleated Red Blood Cells % 0; Platelet Count 127 10^3/uL (150-450); Red Blood Count 3.54 10^6 /uL (3.70-4.87); Red Cell Distribution Width 14 % (10.5-15); White Blood Count 3.6 10^3/uL (3.5-10.8)
[2018-10-25 07:12] LABS: BUN/Creatinine Ratio 5.9 (8-20); Calcium 8.2 mg/dL (8.6-10.3); EGFR African American 125.6 (>60); EGFR Non-African American 103.8 (>60); Magnesium 1.9 mg/dL (1.9-2.7); Potassium 3.3 mmol/L (3.5-5.0)
[2018-10-25] MEDS: PROCHLORPERAZINE INJ 5 MG/ML 2 ML VIAL IV PRN (07:22)
[2018-10-25] MEDS: oxyCODONE TAB* 5 MG TAB PO PRN (07:26)
[2018-10-25] MEDS ORDERED: Potassium Chlor TAB* 20 MEQ TAB.ER PO ONE (07:49)
[2018-10-25] MEDS ORDERED: KCL 20 MEQ/100 ML IVPREMIX* 20 MEQ/100 ML BAG IV ONE (07:49)
[2018-10-25] MEDS: Pantoprazole TAB * 40 MG TAB PO SCH (08:36)
[2018-10-25] MEDS: Nicotine Inhaler* 10 MG AMP INH PRN (08:36)
[2018-10-25] MEDS: Sucralfate TAB* 1 GM PO SCH (08:36)
[2018-10-25] MEDS: Heparin VIAL(*) 5000 UNITS/ML VIAL (FIVE THOUSAND) SUBCUT SCH (08:36)
[2018-10-25 10:01] VITALS: BP 112/75
--- NOTE | 2018-10-25 16:29 | DS ---
CC: [facility] * DISCHARGE SUMMARY: DATE OF ADMISSION: 10/22/18 DATE OF DISCHARGE: 10/25/18 PRIMARY CARE PROVIDER: [facility]. MY ATTENDING WHILE IN THE HOSPITAL: Dr. Austin Yo.* (DICTATED BY ZAN TALBERT) PRIMARY DISCHARGE DIAGNOSES: 1. Pancreatitis, likely alcohol induced. 2. Probable gastritis. 3. Acute kidney injury. SECONDARY DISCHARGE DIAGNOSES: 1. Alcohol abuse. 2. History of pulmonary embolism. STUDIES DONE WHILE IN THE HOSPITAL: Abdomen and pelvis CT from 10/22/18 read as there has been decrease in overall pancreatic size to prior study. Pancreatic head remains mildly enlarged with peripancreatic fluid stranding extending around the adjacent duodenum, concerning for pancreatitis or less likely duodenitis. Recommend correlation with amylase and lipase levels. No evidence for necrosis or pseudocyst. Continued wall thickening of the lower esophagus concerning for esophagitis. MEDICATIONS AT DISCHARGE: 1. Tylenol 975 mg p.o. q.8 hours scheduled. 2. Melatonin 3 mg p.o. at bedtime as needed. 3. Oxycodone 5 mg p.o. q.4 hours as needed for short-term acute pain. 4. Pantoprazole 40 mg p.o. b.i.d. 5. Sucralfate 1 g p.o. a.c. and h.s. New medications at discharge: 1. Tylenol. 2. Melatonin. 3. Oxycodone. 4. Pantoprazole. 5. Sucralfate. HOSPITAL COURSE: This is a brief summary of the patient's presentation. For more details, please see the history and physical from Dr. Brandi Carty on 07/31. In brief, the patient is a 28-year-old female with past medical history significant as above, who presented to the emergency department with 4 days of severe abdominal pain, vomiting, and small-volume hematemesis associated with bright red blood. The patient had been drinking heavily up to 5 drinks a day for at least 4 months. The patient has a history of alcohol withdrawal. The patient was admitted to the hospital, made n.p.o., started on a clear liquid diet, given fluids and morphine for pain control. The patient was started on WAM protocol, but never scored for Ativan. The patient's abdominal pain slowly decreased. The patient initially had a lactic acid of 6.2, Which normalized with fluid. The patient had initially elevated lipase of 183 and potassium 2.9. The lipase trended down and potassium was replaced. The patient had an elevated creatinine of 1.08, which decreased to 0.68. The patient had an alcohol level of 164 on admission. The patient showed no clinical signs of withdrawal while she was in the hospital. The patient had mild continued abdominal pain on 10/25/18, but was tolerating a soft diet and was stable enough for discharge on 10/25/18. PHYSICAL EXAMINATION ON THE DAY OF DISCHARGE: General: The patient is a 28- year- old female who appears stated age and sitting comfortably in bed, in no acute distress. HEENT: Head: Normocephalic, atraumatic. Sclerae anicteric. No conjunctival injection. Nasal mucosa moist. Oral mucosa moist. No pharyngeal erythema, discharge, or exudate. Neck: Supple, nontender. No lymphadenopathy. No carotid bruits auscultated. No JVD. Cardiac: Regular rate and rhythm. No clicks, murmurs, gallops, or rubs. Pulses are 2+ in the bilateral dorsalis pedis, posterior tibialis, and radial areas. Respiratory: Clear to auscultation bilaterally. No wheezes, rales, or rhonchi. Good air exchange bilaterally. Abdomen: Soft, nondistended. Mild tenderness without rebound or guarding of the epigastric area. Bowel sounds present, normoactive in all 4 quadrants. No hepatosplenomegaly. No abdominal bruits auscultated. No hepatojugular reflux. Genitourinary: No suprapubic or CVA tenderness. Skin : Clean, dry, and intact. No rash. Neuro: Cranial nerves II through XII intact. No focal deficits. Alert and oriented x3. Psychiatric: Pleasant and cooperative. DISCHARGE PLAN: The patient will be discharged to home. The patient is currently homeless and will go to [facility] for emergency housing. The patient will be given a short course of oxycodone as needed for her continued abdominal pain. The patient should not be continued in the long-term given the patient's history of substance abuse issues. The patient will be continued on pantoprazole and sucralfate. The patient should follow up with the [facility] within 1 week to assess for continued improvement in her symptoms. The patient has been advised to quit smoking and advance her diet as tolerated, staying away from dense foods or fatty foods initially and advancing into her diet slowly. The patient is interested in alcohol abstinence and has been provided by social work with alcohol abuse resource in the community. The patient should engage in activity as tolerated. TIME SPENT: Approximately 45 minutes spent on the discharge of this patient, 30 of which was spent [id number] with the patient obtaining history and physical and discussing treatment plan. ZAN TALBERT [id number]/[facility] #: [id number] TOM
== END 2018-10-25 11:05 | disposition home or self-care (01) | DRG 282 ==
LOC: ED 16:42 → MEDTELE 21:39 → MED 10-24 01:00
PROVIDERS: ADMIT Hospitalist; ATTEND Internal Medicine
DX: K85.20 Alcohol induced acute pancreatitis without necrosis or infection (principal); K92.0 Hematemesis; N17.9 Acute kidney failure, unspecified; E87.2 Acidosis; F10.10 Alcohol abuse, uncomplicated; E87.6 Hypokalemia; E86.1 Hypovolemia; K20.9 Esophagitis, unspecified; K29.70 Gastritis, unspecified, without bleeding; F12.90 Cannabis use, unspecified, uncomplicated; F17.210 Nicotine dependence, cigarettes, uncomplicated; Y90.6 Blood alcohol level of 120-199 mg/100 ml; Z86.711 Personal history of pulmonary embolism; Z59.0 Homelessness; Z79.3 Long term (current) use of hormonal contraceptives
CPT/HCPCS: 36415; 74177; 80048; 80053; 80320; 81003; 82150; 83605; 83690; 83735; 84702; 85025; 85027; 85610; 86140; 93005; 99284; A9270-GY; G0480; J0780; J1644; J2270; J2405; J3480; Q9967

== ENCOUNTER 2019-02-05 16:55 | Emergency (ER) | payer SELFPAY ==
[2019-02-05 19:30] LABS: Urine Appearance Cloudy; Urine Bacteria Absent (Absent); Urine Bilirubin Negative (Negative); Urine Blood 2+ (Negative); Urine Color Yellow; Urine Glucose Negative (Negative); Urine Ketones Trace (Negative); Urine Nitrite Negative (Negative); Urine Protein 1+(30 mg/dL) (Negative); Urine Red Blood Cell Trace(0-2/hpf) (Absent); Urine Specific Gravity 1.028 (1.010-1.030); Urine Squamous Epithelial Cell Present (Absent); Urine Urobilinogen Negative (Negative); Urine White Blood Cell Trace(0-5/hpf) (Absent)
[2019-02-05] MEDS ORDERED: NS 0.9% 1000 ML** 1,000 ML IV ONE (20:21)
--- NOTE | 2019-02-05 20:24 | UC ---
Abdominal Pain Female HPI - HPI Summary HPI Summary: patient began with n/v/d this am---stool has been watery with out blood---is on BCP and menses has been abnormal starting q 2 weeks for the past 6 weeks--- bleeding began again today--patient has had no fever, illness exposures, travel or antibiotics- patient did eat a couple of crackers a few hours ago and did not vomit - History of Current Complaint Chief Complaint: EDAbdPain Stated Complaint: NAUSEA PER PT Time Seen by Provider: 02/05/19 20:20 Hx Obtained From: Patient ?: No Onset/Duration: Sudden Onset, Lasting Days - 1, Still Present Timing: Constant Pain Intensity: 3 Pain Scale Used: 0-10 Numeric Location: Diffuse, Epigastric Radiates: No Character: Aching, Cramping Aggravating Factor(s): Nothing Alleviating Factor(s): Nothing Associated Signs and Symptoms: Positive: Decreased Appetite, Vaginal Bleeding, Nausea, Vomiting, Diarrhea Allergies/Adverse Reactions: Allergies Allergy/AdvReac Type Severity Reaction Status Date / Time No Known Allergies Allergy Verified 02/05/19 17:02 Home Medications: Home Medications Buprenorphine HCl/Naloxone HCl [Buprenorp-Nalox 8-2 mg Sl Film] 3 each SL DAILY 02/05/19 [History Confirmed 02/05/19] Omeprazole 40 mg PO DAILY 02/05/19 [History Confirmed 02/05/19] PMH/Surg Hx/FS Hx/Imm Hx Previously Healthy: No GI/ History: Gastroesophageal Reflux Psychological History: Other Other Psychological History: 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 Knows biological mom and denies any known DVT, PE or lung CA Negative: Cardiac Disease, Hypertension, Diabetes - Social History Occupation: Employed Full-time Lives: With Family Alcohol Use: Daily Alcohol Amount: several drinks daily Substance Use Type: Marijuana Smoking Status (MU): Light Every Day Tobacco Smoker Type: Cigarettes Amount Used/How Often: 5 CIGS PER DAY - Immunization History Most Recent Influenza Vaccination: 07/17/18 Most Recent Pneumonia Vaccination: unknown Review of Systems All Other Systems Reviewed And Are Negative: Yes Constitutional: Positive: Negative Skin: Positive: Negative Eyes: Positive: Negative ENT: Positive: Negative Respiratory: Positive: Negative Cardiovascular: Positive: Negative Gastrointestinal: Positive: Abdominal Pain, Vomiting, Diarrhea, Nausea Genitourinary: Positive: Abnormal Bleeding. Negative: Dysuria, Hematuria, Frequency, Urgency Motor: Positive: Negative Neurovascular: Positive: Negative Musculoskeletal: Positive: Negative Neurological: Positive: Negative Psychological: Positive: Negative Is Patient Immunocompromised?: No Physical Exam Triage Information Reviewed: Yes Appearance: Well-Appearing, No Pain Distress, Well-Nourished Vital Signs: Initial Vital Signs Temp 99.1 F 02/05/19 17:00 Pulse 97 02/05/19 17:00 Resp 16 02/05/19 17:00 BP 114/75 02/05/19 17:00 Pulse Ox 97 02/05/19 17:00 Vital Signs Reviewed: Yes Eye Exam: Normal Eyes: Positive: Conjunctiva Clear ENT Exam: Normal ENT: Positive: Normal ENT inspection, Hearing grossly normal. Negative: Trismus , Muffled voice, Hoarse voice Dental Exam: Normal Neck exam: Normal Neck: Positive: Supple, Nontender Respiratory Exam: Normal Respiratory: Positive: Chest non-tender, Lungs clear, Normal breath sounds, No respiratory distress, No accessory muscle use Cardiovascular Exam: Normal Cardiovascular: Positive: RRR, No Murmur, Pulses Normal, Brisk Capillary Refill Abdominal Exam: Normal Abdomen Description: Positive: No Organomegaly, Soft, Other: - diffuse, mid epigastric discomfort. Negative: CVA Tenderness (R), CVA Tenderness (L) Bowel Sounds: Positive: Present Musculoskeletal Exam: Normal Musculoskeletal: Positive: Strength Intact, ROM Intact, No Edema Neurological Exam: Normal Neurological: Positive: Alert, Muscle Tone Normal Psychological Exam: Normal Skin Exam: Normal Re-Evaluation - Re-Evaluation First Eval Change: Improved - feeling better will d/c to home with follow up with pcp or to return to ED for any continued or return of symptoms Abd Pain Female Course/Dx - Course Course Of Treatment: home and rest advance diet slowly---return to ed for worsening pain, - Differential Dx/Diagnosis Provider Diagnosis: Pain of upper abdomen, GERD (gastroesophageal reflux disease) Discharge - Sign-Out/Discharge Documenting (check all that apply): Patient Departure Patient Received Moderate/Deep Sedation with Procedure: No - Discharge Plan Condition: Stable Disposition: HOME Prescriptions: Omeprazole (Nf) [Prilosec (NF)] 40 mg PO DAILY #30 capsule. Ondansetron ODT TAB* [Zofran 4 MG Odt TAB*] 4 mg PO Q6H PRN #6 tab.odt PRN Reason: Nausea Patient Education Materials: Clear Liquid Diet (ED), Abdominal Pain (ED) Forms: *Work Release Referrals: Dana Pereira DO [Primary Care Provider] - 2 Days - Billing Disposition and Condition Condition: STABLE Disposition: Home - Attestation Statements Provider Attestation: the patient was seen by the midlevel provider, it was determined by them that it was not necessary for me to see the patient thus the patient was not presented to me, I was available for consult during the patient's visit in the ED. I did not establish and patient-physician relationship. The chart however has been reviewed and I am signing in an administrative capacity.
[2019-02-05 21:12] LABS: ABS Eosinophils 0.1 10^3/ul (0-0.6); ABS Lymphocytes 1.6 10^3/ul (1.0-4.8); ABS Monocytes 0.3 10^3/ul (0-0.8); Eosinophil % 1.7 %; Hematocrit 35 % (35-47); Hemoglobin 11.7 g/dL (12.0-16.0); Lymphocyte % 39.6 %; Mean Corpuscular HGB Conc 33 g/dL (31-36); Mean Corpuscular Hemoglobin 30 pg (27-31); Mean Corpuscular Volume 88 fL (80-97); Mean Platelet Volume 7.8 fL (7.4-10.4); Nucleated Red Blood Cells % 0.1; Platelet Count 130 10^3/uL (150-450); Red Blood Count 3.96 10^6 /uL (3.70-4.87); Red Cell Distribution Width 18 % (10-15); White Blood Count 4.1 10^3/uL (3.5-10.8)
[2019-02-05 21:34] LABS: ALT 26 U/L (7-52); AST 45 U/L (13-39); Albumin 3.9 g/dL (3.2-5.2); Albumin/Globulin Ratio 1.4 (1-3); Alkaline Phosphatase 100 U/L (34-104); Amylase 48 U/L (29-103); Anion Gap 7 mmol/L (2-11); BUN/Creatinine Ratio 17.9 (8-20); Blood Urea Nitrogen 14 mg/dL (6-24); C Reactive Protein < 1.00 mg/L (<8.01); CO2 Carbon Dioxide 27 mmol/L (22-32); Calcium 8.7 mg/dL (8.6-10.3); Chloride 106 mmol/L (101-111); EGFR African American 107.2 (>60); EGFR Non-African American 88.6 (>60); Globulin 2.8 g/dL (2-4); Glucose 114 mg/dL (70-100); HCG Pregnancy < 0.60 mIU/mL; Magnesium 2.1 mg/dL (1.9-2.7); Potassium 3.4 mmol/L (3.5-5.0); Sodium 140 mmol/L (135-145); Total Protein 6.7 g/dL (6.4-8.9)
[2019-02-05] MEDS ORDERED: Ondansetron ODT TAB* 4 MG PO ONE (21:56)
[2019-02-05] MEDS ORDERED: Potassium Chlor TAB* 20 MEQ TAB.ER PO ONE (21:57)
[2019-02-05] MEDS ORDERED: Al Hydrox/Mg Hydrox/Simet LIQ* 30 ML UDC PO ONE (22:09)
[2019-02-05] MEDS ORDERED: Lidocaine 2% VISCOUS* 15 ML UDC PO ONE (22:10)
[2019-02-05 22:26] VITALS: BP 109/72
== END 2019-02-05 22:26 | disposition home or self-care (01) ==
LOC: ED 16:55
DX: R10.10 Upper abdominal pain, unspecified (principal); K21.9 Gastro-esophageal reflux disease without esophagitis; F11.11 Opioid abuse, in remission; F17.210 Nicotine dependence, cigarettes, uncomplicated
CPT/HCPCS: 36415; 80053; 81003; 81015; 82150; 83605; 83690; 83735; 84702; 85025; 86140; 87040; 87086; 96360; 99283; A9270-GY

== ENCOUNTER 2019-05-06 18:56 | Inpatient (IN) | payer OTHER ==
[2019-05-06 20:43] LABS: ABS Eosinophils 0.1 10^3/ul (0-0.6); ABS Lymphocytes 1.2 10^3/ul (1.0-4.8); ABS Monocytes 0.4 10^3/ul (0-0.8); ABS Neutrophils 4.3 10^3/ul (1.5-7.7); Eosinophil % 1.2 %; Hematocrit 41 % (35-47); Lymphocyte % 20.7 %; Mean Corpuscular HGB Conc 34 g/dL (31-36); Mean Corpuscular Hemoglobin 31 pg (27-31); Mean Corpuscular Volume 92 fL (80-97); Mean Platelet Volume 7.6 fL (7.4-10.4); Nucleated Red Blood Cells % 0.2; Platelet Count 160 10^3/uL (150-450); Red Blood Count 4.46 10^6 /uL (3.70-4.87); Red Cell Distribution Width 15 % (10-15)
[2019-05-06 21:06] LABS: ALT 54 U/L (7-52); AST 104 U/L (13-39); Albumin 4.5 g/dL (3.2-5.2); Albumin/Globulin Ratio 1.6 (1-3); Alkaline Phosphatase 85 U/L (34-104); Anion Gap 9 mmol/L (2-11); Blood Urea Nitrogen 21 mg/dL (6-24); C Reactive Protein 3.37 mg/L (<8.01); CO2 Carbon Dioxide 30 mmol/L (22-32); Calcium 9.4 mg/dL (8.6-10.3); Chloride 101 mmol/L (101-111); EGFR African American 112.2 (>60); EGFR Non-African American 92.7 (>60); Globulin 2.9 g/dL (2-4); Glucose 85 mg/dL (70-100); Potassium 3.6 mmol/L (3.5-5.0); Sodium 140 mmol/L (135-145); Total Protein 7.4 g/dL (6.4-8.9)
[2019-05-06 21:07] LABS: HCG Pregnancy < 0.60 mIU/mL
[2019-05-06] MEDS ORDERED: Ondansetron INJ* 2 MG/ML VIAL IV ONE (21:24)
[2019-05-06] MEDS ORDERED: NS 0.9% 1000 ML** 1,000 ML IV ONE ×2 (21:24→21:34)
[2019-05-06] MEDS ORDERED: Ketorolac INJ* 30 MG/ML 1 ML VIAL IV PUSH ONE (21:24)
[2019-05-06] MEDS ORDERED: Morphine 4 MG/ML VIAL (1 ml) 4 MG/ML VIAL IV ONE (21:34)
--- NOTE | 2019-05-06 21:34 | ED ---
GI/ HPI - HPI Summary HPI Summary: 28-year-old female presents with abdominal pain for the past couple days. She states is in her epigastric. States feels like when she's had pancreatitis in past. States she is not drinking alcohol anymore. She states has been having nausea and vomiting. Did have 1 episode diarrhea. Nothing has been helping. States not able to keep anything down. She states she may have had a fever. No chest pain or shortness of breath. She states pain is sharp and radiates back. has history of PE. - History of Current Complaint Chief Complaint: EDAbdPain Time Seen by Provider: 05/06/19 21:16 Stated Complaint: VOMITING/ABD PAIN PER PT Hx Last Menstrual Period: 09/29/16 Pain Intensity: 8 - Additional Pertinent History Primary Care Physician: [id number] - Allergy/Home Medications Allergies/Adverse Reactions: Allergies Allergy/AdvReac Type Severity Reaction Status Date / Time No Known Allergies Allergy Verified 05/06/19 21:15 Home Medications: Home Medications DOXYcycline CAP(*) [DOXYcycline 100MG CAP(*)] 100 mg PO BID 05/06/19 [History Confirmed 05/06/19] Folic Acid 25 mg PO DAILY 05/06/19 [History Confirmed 05/06/19] PMH/Surg Hx/FS Hx/Imm Hx Endocrine/Hematology History: Reports: Hx Anemia Denies: Hx Diabetes Cardiovascular History: Denies: Hx Hypertension Respiratory History: Reports: Hx Pulmonary Embolism History: Denies: Hx Renal Disease Sensory History: Denies: Hx Contacts or Glasses, Hx Legally Blind, Hx Deafness, Hx Hearing Aid Opthamlomology History: Denies: Hx Contacts or Glasses, Hx Legally Blind Psychiatric History: Reports: Hx Anxiety, Hx Attention Deficit Hyperactivity Disorder, Hx Eating Disorder, Hx Depression, Hx Panic Disorder, Hx Inpatient Treatment, Hx Community Mental Health Tx, Hx Bipolar Disorder, Hx Suicide Attempt, Hx Substance Abuse Denies: Hx Post Traumatic Stress Disorder, Hx Schizophrenia - Bio. mom diagnosed with schizophrenia, Hx of Violent Episodes Against Others, Other Psychiatric Issues/Disorders - Immunization History Date of Tetanus Vaccine: unk Date of Influenza Vaccine: fall 2017 Infectious Disease History: No Infectious Disease History: Denies: Traveled Outside the [place] in Last 30 Days - Family History Known Family History: Positive: Other - Adopted. Knows biological mom and denies any known DVT, PE or lung CA Negative: Cardiac Disease, Hypertension, Diabetes - Social History Alcohol Use: Occasionally Alcohol Amount: several drinks daily Hx Substance Use: No Substance Use Type: Reports: None Substance Use Comment - Amount & Last Used: heroin- 2 weeks ago; marijuana today Hx Tobacco Use: Yes Smoking Status (MU): Light Every Day Tobacco Smoker Type: Cigarettes Amount Used/How Often: 5 CIGS PER DAY Review of Systems Negative: Fever Negative: Chest Pain Negative: Shortness Of Breath Positive: Abdominal Pain, Vomiting, Diarrhea, Nausea All Other Systems Reviewed And Are Negative: Yes Physical Exam Triage Information Reviewed: Yes Vital Signs On Initial Exam: Initial Vitals Temp Pulse Resp BP Pulse Ox 98.3 F 120 18 130/91 95 05/06/19 19:16 05/06/19 19:16 05/06/19 19:16 05/06/19 19:16 05/06/19 19:16 Vital Signs Reviewed: Yes Appearance: Positive: Well-Appearing Skin: Positive: Warm, Dry Head/Face: Positive: Normal Head/Face Inspection Eyes: Positive: Normal, Conjunctiva Clear ENT: Positive: Pharynx normal Respiratory/Lung Sounds: Positive: Clear to Auscultation, Breath Sounds Present Cardiovascular: Positive: Normal, RRR Abdomen Description: Positive: Soft, Other: - tenderness epigastric Bowel Sounds: Positive: Present Musculoskeletal: Positive: Normal Neurological: Positive: Normal Psychiatric: Positive: Normal Diagnostics - Vital Signs Vital Signs Temp Pulse Resp BP Pulse Ox 05/06/19 19:16 98.3 F 120 18 130/91 95 - Laboratory Lab Results: Lab Results 05/06/19 05/06/19 05/06/19 Range/Units 20:33 20:33 20:33 WBC 6.0 (3.5-10.8) 10^3/uL RBC 4.46 (3.70-4.87) 10^6 /uL Hgb 14.0 (12.0-16.0) g/dL Hct 41 (35-47) % MCV 92 (80-97) fL MCH 31 (27-31) pg MCHC 34 (31-36) g/dL RDW 15 (10-15) % Plt Count 160 (150-450) 10^3/uL MPV 7.6 (7.4-10.4) fL Neut % (Auto) 71.2 % Lymph % (Auto) 20.7 % [place] % (Auto) 6.7 % Eos % (Auto) 1.2 % Baso % (Auto) 0.2 % Absolute Neuts (auto) 4.3 (1.5-7.7) 10^3/ul Absolute Lymphs (auto) 1.2 (1.0-4.8) 10^3/ul Absolute Monos (auto) 0.4 (0-0.8) 10^3/ul Absolute Eos (auto) 0.1 (0-0.6) 10^3/ul Absolute Basos (auto) 0.0 (0-0.2) 10^3/ul Absolute Nucleated RBC 0.0 10^3/ul Nucleated RBC % 0.2 Sodium 140 (135-145) mmol/L Potassium 3.6 (3.5-5.0) mmol/L Chloride 101 (101-111) mmol/L Carbon Dioxide 30 (22-32) mmol/L Anion Gap 9 (2-11) mmol/L BUN 21 (6-24) mg/dL Creatinine 0.75 (0.51-0.95) mg/dL Est GFR ( Amer) 112.2 (>60) Est GFR (Non-Af Amer) 92.7 (>60) BUN/Creatinine Ratio 28.0 H (8-20) Glucose 85 (70-100) mg/dL Lactic Acid 2.2 H* (0.5-2.0) mmol/L Calcium 9.4 (8.6-10.3) mg/dL Total Bilirubin 0.80 (0.2-1.0) mg/dL AST 104 H (13-39) U/L ALT 54 H (7-52) U/L Alkaline Phosphatase 85 (34-104) U/L C-Reactive Protein 3.37 (<8.01) mg/L Total Protein 7.4 (6.4-8.9) g/dL Albumin 4.5 (3.2-5.2) g/dL Globulin 2.9 (2-4) g/dL Albumin/Globulin Ratio 1.6 (1-3) Amylase Pending Lipase 775 H (11.0-82.0) U/L Beta HCG, Quant < 0.60 mIU/mL Monoscreen Pending Result Diagrams: 05/06/19 20:33 05/06/19 20:33 Lab Statement: Any lab studies that have been ordered have been reviewed, and results considered in the medical decision making process. - Ultrasound No standard instances Ultrasound Interpretation Completed By: Radiologist Summary of Ultrasound Findings: IMPRESSION: 1. Distended gallbladder containing a small polyp. No shadowing gallstones or gallbladder wall thickening. 2. Mildly dilated extrahepatic common bile duct measuring 7 mm. No ductal stones identified. 3. The pancreatic tail is obscured by bowel gas. Remainder of the gland slightly heterogeneous in appearance but without focal mass or pancreatic ductal dilatation. Re-Evaluation - Re-Evaluation First Eval Change: Unchanged Comment: still in pain Second Eval Re-Evaluation Time: 23:57 Change: Improved - feeling better Comment: feeling better GIGU Course/Dx - Course Course Of Treatment: 28-year-old female presents with abdominal pain for the past couple days. She states is in her epigastric. States feels like when she' s had pancreatitis in past. States she is not drinking alcohol anymore. She states has been having nausea and vomiting. Did have 1 episode diarrhea. Nothing has been helping. States not able to keep anything down. She states she may have had a fever. No chest pain or shortness of breath. She states pain is sharp and radiates back. has history of PE. on exam tenderness epigastric. wbc normal. Amylase and lipase are elevated. Gave pain medication feeling better. gallbladder u/s normal gallbladder. Discussed case with Dr. Carty who agrees to admit for pancreatitis. - Diagnoses Differential Diagnoses - Female: Gall Bladder Disease, Gastroenteritis (Viral), Pancreatitis Provider Diagnoses: Pancreatitis Discharge ED - Sign-Out/Discharge Documenting (check all that apply): Patient Departure - Discharge Plan Condition: Stable Disposition: ADMITTED TO [facility] Referrals: Dana Pereira DO [Primary Care Provider] - - Billing Disposition and Condition Condition: STABLE Disposition: Admitted to [facility]
[2019-05-06 21:35] LABS: Amylase 173 U/L (29-103)
[2019-05-06 21:54] LABS: Urine Appearance Cloudy; Urine Bacteria 1+ (Absent); Urine Bilirubin Negative (Negative); Urine Blood Negative (Negative); Urine Color Yellow; Urine Glucose Negative (Negative); Urine Ketones Negative (Negative); Urine Nitrite Negative (Negative); Urine Protein 1+(30 mg/dL) (Negative); Urine Red Blood Cell Trace(0-2/hpf) (Absent); Urine Specific Gravity 1.018 (1.010-1.030); Urine Squamous Epithelial Cell Present (Absent); Urine Urobilinogen Negative (Negative); Urine White Blood Cell Trace(0-5/hpf) (Absent)
[2019-05-06] MEDS ORDERED: HYDROmorphone INJ1* 1 MG/ML SYRINGE IV SLOW PU ONE (23:31)
[2019-05-07 01:11] LABS: Alcohol 238 mg/dL (<10)
[2019-05-07] MEDS ORDERED: Morphine INJ* 2 MG/ML 1 ML SYRINGE (TWO MG - NEW SYRINGE VERSION) IV PRN ×2 (01:35→01:53)
[2019-05-07] MEDS ORDERED: NS 0.9% 1000 ML** 1,000 ML IV ONE (01:35)
[2019-05-07] MEDS ORDERED: Ondansetron INJ* 2 MG/ML VIAL IV PRN (01:35)
[2019-05-07] MEDS: Ketorolac INJ* 15 MG/ML 1 ML VIAL IV PUSH PRN ×3 (03:02→20:29)
--- NOTE | 2019-05-07 04:25 | HP ---
CC: Dr. Pereira * HISTORY AND PHYSICAL: DATE OF ADMISSION: 05/07/19 PRIMARY CARE PROVIDER: The patient indicates Dana Pereira DO; however, the patient has prescriptions ordered by Doyle Mustafa MD. CHIEF COMPLAINT: Abdominal pain. HISTORY OF PRESENT ILLNESS: Ms. Ruano is a 28-year-old female, who has a history of alcoholism in the past and history of alcoholic pancreatitis in October 2018, who presents to the emergency room with complaints of abdominal pain , nausea, and vomiting. The patient states that on Sunday morning she began to develop very sharp epigastric abdominal pain. It does not radiate anywhere. It was associated with nausea and vomiting. She also developed an achiness in her back. She states that she had cold sweats. She initially denied drinking alcohol; however, when I confronted her about her elevated alcohol level of 238 , she states that she drank on Sunday evening and Sunday a.m. She states that she otherwise had been abstaining from alcohol use. The patient, however, has many complex what she tells me today compared to records I see in the EMR. PAST MEDICAL HISTORY: 1. Alcoholism. 2. History of alcoholic pancreatitis. 3. The patient has recently been treated for Lyme disease due to concern of bull's-eye lesion on the left anterior ankle. 4. The patient has a history of pulmonary embolism. PAST SURGICAL HISTORY: None. MEDICATIONS: The patient indicates that she has only been taking doxycycline 100 mg p.o. twice daily, though she also has Suboxone 8/2 three films sublingual daily listed on her home medication list and the external pharmacy records, with them last being filled on 05/02/19. ALLERGIES: None. FAMILY HISTORY: The patient is adopted. SOCIAL HISTORY: The patient states that she smokes less than 5 cigarettes per day. She initially denied drinking alcohol, but then states that she was drinking on Sunday and Sunday. She states that she works at [employer]. She is not . She told me that she has no children; however, based on my last history and physical done in October 2018, the patient states that she had 1 child. REVIEW OF SYSTEMS: The patient states her appetite has been very poor over the last couple of days. No fevers. She had cold sweats as noted above. No chest pain, no edema, no cough. She states it does hurt to take a deep breath. She admits to abdominal pain, nausea, and vomiting as above. No diarrhea or constipation recently. No hematuria or dysuria. She admits to generalized weakness. No sudden changes in vision. No dysphagia. She states that she has had diffuse aches. No rashes. No anxiety or depression. PHYSICAL EXAMINATION GENERAL: The patient is a well-developed young female, seen sleeping on her stretcher, easily awakening to voice, in no acute distress. VITAL SIGNS: Blood pressure 104/66, pulse 90, respirations 17, temp 98.3, O2 sat 93% on room air. HEENT: Pupils are equal and round. Extraocular muscles are intact. Oropharynx is clear. Oral mucosa is moist. PULMONARY: Lungs are clear to auscultation bilaterally. CARDIAC: Normal S1 and S2. Regular rate and rhythm. I do not appreciate any murmurs. There is no lower extremity edema. ABDOMEN: Bowel sounds are present. Abdomen is soft, nondistended. She is tender to light palpation in both upper quadrants and the left lower quadrant. MUSCULOSKELETAL: There is no cyanosis or clubbing of the digits. There is full active range of motion of all 4 extremities. SKIN: There is a small, approximately 1 cm in diameter, slightly erythematous plaque-like lesion on the anterior left ankle. It is slightly excoriated from what appears to be scratching. NEUROLOGIC: Cranial nerves II through XII are grossly intact. Sensation is intact to light touch throughout. Strength is 5/5 and symmetric in both upper and lower extremities bilaterally. PSYCH: The patient appears withdrawn. She makes very poor eye contact during my evaluation. LABORATORY DATA: WBC 6.0, hemoglobin 14.0, hematocrit 41, platelets 160. Sodium 140, potassium 3.6, chloride 101, CO2 of 30, BUN 21, creatinine 0.75, glucose 85, lactic acid 2.2, calcium 9.4. Bilirubin 0.4, AST 104, ALT 54, alk phos 85, CRP 3.37. Albumin 4.5, amylase 173, lipase 775. Urine reveals cloudy urine with specific gravity of 1.018, 1+ bacteria. Serum alcohol 238. ASSESSMENT AND PLAN: Ms. Ruano is a 28-year-old female with a history of alcoholism and past history of alcoholic pancreatitis who presents to the emergency room with complaints of abdominal pain, nausea, and vomiting and is found to have labs and exam consistent with acute pancreatitis. 1. Alcoholic pancreatitis. My suspicion is the patient, in fact, has not stopped drinking. It does appear that she likely has again alcoholic pancreatitis. She also has a 2:1 ratio of AST to ALT, making me suspicious for alcoholic hepatitis. The patient will be admitted for IV fluid hydration. She will be allowed clear liquids for now. She will have p.r.n. morphine and Toradol for pain as well as Zofran for nausea. I have expressed how important it is that the patient completely abstain from alcohol use moving forward. 2. DVT prophylaxis. According to the Adult Thrombosis Prophylaxis Risk Factor Assessment Guide, the patient has a total risk factor score of 0, making her low risk. Ambulation will be utilized as DVT prophylaxis. 3. Code status is full. The patient is adopted and mother, Celina, would be her healthcare proxy. TIME SPENT: Forty-five minutes were spent admitting this patient. [id number]/[facility] #: [id number] TOM
[2019-05-07] MEDS: NS 0.9% 1000 ML** 1,000 ML IV SCH ×2 (04:28→14:50)
[2019-05-07] MEDS ORDERED: LORazepam TAB(*) 0.5 MG PO PRN (07:22)
--- NOTE | 2019-05-07 08:30 | PN ---
Hospitalist Progress Note Date of Service: 05/07/19 Subjective- Pt has abdominal pain and tenderness in all quadrants and explained it to be like a band on the RLQ and LLQ. Pt cant keep anything down so has no nausea, vomiting and describes the pain as being "20/10" that has not improved since yesterday. Pt has concern that e tick bite could have caused this because of bullseye rash she noticed last Sunday. No overnight events Objective- Vitals Temp.-98.1F Heart rate- 99 Resp. rate- 18 O2 sat-100% BP-96/59 GENERAL: The patient is well appearing. HEENT: Pupils are equal and round. Extraocular muscles are intact. Oropharynx is clear. Oral mucosa is moist. PULMONARY: Lungs are clear to auscultation bilaterally. CARDIAC: Normal S1 and S2. Regular rate and rhythm. I do not appreciate any murmurs. ABDOMEN: Bowel sounds are present. Abdomen is soft, nondistended. She is tender to light palpation in both upper quadrants and the right lower quadrant. Extremities: There is no cyanosis,edema, or clubbing of the digits. There is full active range of motion of all 4 extremities. SKIN: There is a small, approximately 1 cm in diameter, slightly erythematous plaque-like lesion on the anterior left ankle. It is slightly excoriated from what appears to be scratching. NEUROLOGIC: Cranial nerves II through XII are grossly intact. Sensation is intact to light touch throughout. Strength is 5/5 and symmetric in both upper and lower extremities bilaterally.\\ Labs- BUN/creat- 28.0 lactic acid- 2.2 AST-105 ALT-54 Amylase- 173 Lipase-775 Urine protein-1+(30mg/dl) Ur squamous epith cells-Present Amorphous crystals-Present urine bacteria- 1+ Serum alcohol- 238 Gallbladder u/s- 1)distended gallbladder containing small poly, No gallstones or gallbladder thickening 2) mildly dilated extrahepatic common bile duct measuring 7 mm. No ductal stones. 3) pancreatic tail is obscured by bowel gas. Remainder of gland is slightly heterogeneous in appearance. Assessment/ Plan- Ms. Ruano is a 28-year-old female with a history of alcoholism and past history of alcoholic pancreatitis who presents to the emergency room with complaints of abdominal pain, nausea, and vomiting and is found to have labs and exam consistent with acute pancreatitis. 1.) Alcoholic pancreatitis. Differential for causes of acute pancreatitis are hypertriglyceridemia, medication induced(doxy does not cause this), gallstones -For pain-morphine 4mg IV Q4H PRN and Toradol 15mg IV PUSH Q6H PRN -Nausea- Zofran 4mg IV Q6H PRN -abstain from alcohol use moving forward. -Normal saline .9% 1000 mL @150 mls/hr 2.)Possible alcoholic hepatitis. AST:ALT ratio is 2:1 -check INR -bilirubin is normal -calculate maddrey discriminate score 3.) Lyme disease?-Pt said waiting for results for lyme disease- Check B.Burgdorferi Antibody 4.) Alcohol withdrawal
[2019-05-07] MEDS ORDERED: Morphine INJ* 2 MG/ML 1 ML SYRINGE (TWO MG - NEW SYRINGE VERSION) IV ONE (13:23)
--- NOTE | 2019-05-07 14:06 | PN ---
Subjective Date of Service: 05/07/19 Interval History: Pt complained of severe abdominal pain this morning, not willing to talk. No fever, no chills. Objective Active Medications: Sodium Chloride (Ns 0.9% 1000 Ml) 1,000 mls @ 150 mls/hr IV PER RATE CASH Last Admin: 05/07/19 04:28 Dose: 150 mls/hr Ketorolac Tromethamine (Toradol Inj*) 15 mg IV PUSH Q6H PRN PRN Reason: PAIN - MILD Last Admin: 05/07/19 09:18 Dose: 15 mg Lorazepam (Ativan Tab(*)) 0 mg PO Q2H PRN; Protocol PRN Reason: alcohol withdrawal Morphine Sulfate (Morphine Inj (Syringe))*) 6 mg IV Q4H PRN PRN Reason: PAIN - SEVERE Ondansetron HCl (Zofran Inj*) 4 mg IV Q6H PRN PRN Reason: NAUSEA Vital Signs - 8 hr 05/07/19 05/07/19 05/07/19 07:32 07:45 10:00 Temperature 98.1 F 98.6 F Pulse Rate 99 96 Respiratory 18 18 16 Rate Blood Pressure 96/59 92/55 (mmHg) O2 Sat by Pulse 100 97 Oximetry 05/07/19 05/07/19 05/07/19 10:11 10:17 13:41 Temperature Pulse Rate Respiratory 22 18 Rate Blood Pressure 108/70 (mmHg) O2 Sat by Pulse Oximetry Oxygen Devices in Use Now: None Exam: General -in severe pain, tearing. Eyes - PERRLA, EOM intact HEENT- no abnormality Lymph Nodes - No lymphadenopathy Cardiovascular -irregularly irregular, no m/r/g, no JVD, no carotid bruits Lungs - clear on auscultation, no use of acessory muscles, no crackles or wheezes. Skin - No rashes, skin warm and dry, no erythematous areas Abdomen - Normal bowel sounds, abdomen soft and generalized tenderness to light palpation Extremities -No cyanosis or clubbing over bilateral upper extremities. Musculo Skeletal - 5/5 strength, normal range of motion, no swollen or erythematous joints. Neurological Alert and oriented x 3, CN 2-12 grossly intact. Psychiatry- anxious, not depressed. Result Diagrams: 05/06/19 20:33 05/07/19 14:05 Additional Lab and Data: Lab Results 05/06/19 05/06/19 05/06/19 Range/Units 20:33 20:33 20:33 WBC 6.0 (3.5-10.8) 10^3/uL RBC 4.46 (3.70-4.87) 10^6 /uL Hgb 14.0 (12.0-16.0) g/dL Hct 41 (35-47) % MCV 92 (80-97) fL MCH 31 (27-31) pg MCHC 34 (31-36) g/dL RDW 15 (10-15) % Plt Count 160 (150-450) 10^3/uL MPV 7.6 (7.4-10.4) fL Neut % (Auto) 71.2 % Lymph % (Auto) 20.7 % [place] % (Auto) 6.7 % Eos % (Auto) 1.2 % Baso % (Auto) 0.2 % Absolute Neuts (auto) 4.3 (1.5-7.7) 10^3/ul Absolute Lymphs (auto) 1.2 (1.0-4.8) 10^3/ul Absolute Monos (auto) 0.4 (0-0.8) 10^3/ul Absolute Eos (auto) 0.1 (0-0.6) 10^3/ul Absolute Basos (auto) 0.0 (0-0.2) 10^3/ul Absolute Nucleated RBC 0.0 10^3/ul Nucleated RBC % 0.2 Sodium 140 (135-145) mmol/L Potassium 3.6 (3.5-5.0) mmol/L Chloride 101 (101-111) mmol/L Carbon Dioxide 30 (22-32) mmol/L Anion Gap 9 (2-11) mmol/L BUN 21 (6-24) mg/dL Creatinine 0.75 (0.51-0.95) mg/dL Est GFR ( Amer) 112.2 (>60) Est GFR (Non-Af Amer) 92.7 (>60) BUN/Creatinine Ratio 28.0 H (8-20) Glucose 85 (70-100) mg/dL Lactic Acid 2.2 H* (0.5-2.0) mmol/L Calcium 9.4 (8.6-10.3) mg/dL Total Bilirubin 0.80 (0.2-1.0) mg/dL AST 104 H (13-39) U/L ALT 54 H (7-52) U/L Alkaline Phosphatase 85 (34-104) U/L C-Reactive Protein 3.37 (<8.01) mg/L Total Protein 7.4 (6.4-8.9) g/dL Albumin 4.5 (3.2-5.2) g/dL Globulin 2.9 (2-4) g/dL Albumin/Globulin Ratio 1.6 (1-3) Amylase Pending Lipase 775 H (11.0-82.0) U/L Beta HCG, Quant < 0.60 mIU/mL Monoscreen Pending Assess/Plan/Problems-Billing Assessment: - Patient Problems (1) Acute pancreatitis Current Visit: Yes Status: Acute Code(s): K85.90 - ACUTE PANCREATITIS WITHOUT NECROSIS OR INFECTION, UNSP SNOMED Code(s): 370010557 (2) Alcoholic hepatitis Current Visit: Yes Status: Acute Code(s): K70.10 - ALCOHOLIC HEPATITIS WITHOUT ASCITES SNOMED Code(s): 284582364 Comment: continue to monitor advise to abstain. (3) Alcohol abuse Current Visit: No Status: Acute Code(s): F10.10 - ALCOHOL ABUSE, UNCOMPLICATED SNOMED Code(s): 05801577 Comment: - not interested in abstaining - (4) DVT prophylaxis Current Visit: No Status: Acute Code(s): DKI3805 - SNOMED Code(s): 365678616 Comment: - no DVT prophylaxis needed Status and Disposition: Inpatient Medicine Attestation Documenting Resident: Tamra Reece Supervising Physician: Dana Pereira Attending/Supervising Physician Comment: Acute Pancreatitis Recent etoh relapse likely contributed, but recent doxycycline may have also lowered threshold and contributed to current presentation Increase pain control due to suboxone use--will require higher doses to overcome Continue volume resuscitation Needs close monitoring of respiratory status, pain, volume No imaging indicated at this time but low threshold for CT abd Attestation: This service has been performed in part by a resident under the direction of a teaching physician.I, Dana Pereira, performed the service, or was physically present during the critical, or robin portions of the service, furnished by the resident. I participated in the management of the patient.
[2019-05-07 14:38] LABS: BUN/Creatinine Ratio 20.3 (8-20); Calcium 7.2 mg/dL (8.6-10.3); EGFR African American 147.9 (>60); EGFR Non-African American 122.3 (>60); Potassium 3.6 mmol/L (3.5-5.0)
[2019-05-07 14:42] LABS: Urine Benzodiazepine Screen None Detected (None Detect); Urine Opiates Screen Presumptive Positive (None Detect)
[2019-05-07] MEDS: Morphine INJ* 2 MG/ML 1 ML SYRINGE (TWO MG - NEW SYRINGE VERSION) IV PRN ×3 (14:52→22:56)
[2019-05-08] MEDS: Ketorolac INJ* 15 MG/ML 1 ML VIAL IV PUSH PRN ×3 (02:40→20:58)
[2019-05-08] MEDS: Morphine INJ* 2 MG/ML 1 ML SYRINGE (TWO MG - NEW SYRINGE VERSION) IV PRN ×2 (02:43→07:08)
[2019-05-08] MEDS: NS 0.9% 1000 ML** 1,000 ML IV SCH ×3 (05:07→20:55)
[2019-05-08 06:31] LABS: Hematocrit 35 % (35-47); Hemoglobin 11.8 g/dL (12.0-16.0); Mean Corpuscular HGB Conc 33 g/dL (31-36); Mean Corpuscular Hemoglobin 31 pg (27-31); Mean Corpuscular Volume 93 fL (80-97); Red Blood Count 3.78 10^6 /uL (3.70-4.87); Red Cell Distribution Width 15 % (10-15); White Blood Count 3.1 10^3/uL (3.5-10.8)
[2019-05-08 06:43] LABS: Albumin 3.4 g/dL (3.2-5.2); Albumin/Globulin Ratio 1.8 (1-3); BUN/Creatinine Ratio 16.1 (8-20); Calcium 6.6 mg/dL (8.6-10.3); EGFR African American 157.1 (>60); EGFR Non-African American 129.9 (>60); Globulin 1.9 g/dL (2-4); Potassium 3.8 mmol/L (3.5-5.0); Total Bilirubin 0.5 mg/dL (0.2-1.0); Total Protein 5.3 g/dL (6.4-8.9)
[2019-05-08 06:58] LABS: ABS Eosinophils 0.1 10^3/ul (0-0.6); ABS Lymphocytes 1.4 10^3/ul (1.0-4.8); ABS Monocytes 0.2 10^3/ul (0-0.8); ABS Neutrophils 1.3 10^3/ul (1.5-7.7); Eosinophil % 4.8 %; Lymphocyte % 45.7 %; Mean Platelet Volume 7.7 fL (7.4-10.4); Nucleated Red Blood Cells % 0.1; Platelet Count 99 10^3/uL (150-450)
[2019-05-08] MEDS: cefTRIAXone(*) 1 GM in NS 0.9% 50 ML* 50 ML IVPB SCH (09:50)
[2019-05-08] MEDS: Morphine INJ* 4 MG/ML 1 ML SYRINGE (NEW SYRINGE VERSION) IV PRN ×3 (11:52→22:06)
[2019-05-08 14:36] LABS: ABS Eosinophils 0.1 10^3/ul (0-0.6); ABS Lymphocytes 0.9 10^3/ul (1.0-4.8); ABS Monocytes 0.2 10^3/ul (0-0.8); ABS Neutrophils 2.1 10^3/ul (1.5-7.7); Eosinophil % 3.3 %; Hematocrit 34 % (35-47); Hemoglobin 11.6 g/dL (12.0-16.0); Lymphocyte % 27.7 %; Mean Corpuscular HGB Conc 35 g/dL (31-36); Mean Corpuscular Hemoglobin 32 pg (27-31); Mean Corpuscular Volume 93 fL (80-97); Mean Platelet Volume 7.9 fL (7.4-10.4); Nucleated Red Blood Cells % 0.1; Platelet Count 108 10^3/uL (150-450); Red Blood Count 3.62 10^6 /uL (3.70-4.87); Red Cell Distribution Width 14 % (10-15); White Blood Count 3.3 10^3/uL (3.5-10.8)
--- NOTE | 2019-05-08 16:51 | PN ---
Subjective Date of Service: 05/08/19 Interval History: Patient felt much improved in abd pain, located on epigastric area, pain score 5 /10, radiating to back . Was able to tolerate clear liquid. No other complains. No other new medication use other than doxycycline. Objective Active Medications: Docusate Sodium (Colace Cap*) 100 mg PO DAILY PRN PRN Reason: CONSTIPATION Folic Acid (Folvite Tab*) 1 mg PO DAILY [facility] Sodium Chloride (Ns 0.9% 1000 Ml) 1,000 mls @ 150 mls/hr IV PER RATE [facility] Last Admin: 05/08/19 13:38 Dose: 150 mls/hr Ceftriaxone Sodium 1 gm/ (Sodium Chloride) 50 mls @ 100 mls/hr IVPB Q24H [facility] Last Admin: 05/08/19 09:50 Dose: 100 mls/hr Ketorolac Tromethamine (Toradol Inj*) 15 mg IV PUSH Q6H PRN PRN Reason: PAIN - MILD Last Admin: 05/08/19 09:49 Dose: 15 mg Lorazepam (Ativan Tab(*)) 0 mg PO Q2H PRN; Protocol PRN Reason: alcohol withdrawal Morphine Sulfate (Morphine Inj (Syringe)*) 4 mg IV Q4H PRN PRN Reason: PAIN - SEVERE Last Admin: 05/08/19 11:52 Dose: 4 mg Ondansetron HCl (Zofran Inj*) 4 mg IV Q6H PRN PRN Reason: NAUSEA Thiamine HCl (Vitamin B-1 Tab*) 100 mg PO DAILY [facility] Vital Signs - 8 hr 05/08/19 05/08/19 05/08/19 11:18 11:52 12:09 Temperature 98.8 F 97.8 F Pulse Rate 73 65 Respiratory 17 16 16 Rate Blood Pressure 134/90 127/62 (mmHg) O2 Sat by Pulse 100 100 Oximetry 05/08/19 05/08/19 05/08/19 13:39 14:43 15:49 Temperature 98.3 F 97 F Pulse Rate 70 71 Respiratory 20 16 18 Rate Blood Pressure 114/85 108/73 (mmHg) O2 Sat by Pulse 98 100 Oximetry Oxygen Devices in Use Now: None Exam: General- Lying on bed, comfortably Eyes - PERRLA, EOM intact HEENT- no abnormality Lymph Nodes - No lymphadenopathy Cardiovascular -regular, no m/r/g, no JVD, no carotid bruits Lungs - clear on auscultation, no use of acessory muscles, no crackles or wheezes. Skin - No rashes, skin warm and dry, no erythematous areas Abdomen - Normal bowel sounds, abdomen soft, tenderness over LUQ Extremities -No cyanosis or clubbing over bilateral upper extremities. Musculo Skeletal - 5/5 strength, normal range of motion, no swollen or erythematous joints. Neurological Alert and oriented x 3, CN 2-12 grossly intact. Psychiatry- anxious, not depressed. Result Diagrams: 05/08/19 14:13 05/08/19 05:44 Additional Lab and Data: Lab Results 05/06/19 05/06/19 05/06/19 Range/Units 20:33 20:33 20:33 WBC 6.0 (3.5-10.8) 10^3/uL RBC 4.46 (3.70-4.87) 10^6 /uL Hgb 14.0 (12.0-16.0) g/dL Hct 41 (35-47) % MCV 92 (80-97) fL MCH 31 (27-31) pg MCHC 34 (31-36) g/dL RDW 15 (10-15) % Plt Count 160 (150-450) 10^3/uL MPV 7.6 (7.4-10.4) fL Neut % (Auto) 71.2 % Lymph % (Auto) 20.7 % [place] % (Auto) 6.7 % Eos % (Auto) 1.2 % Baso % (Auto) 0.2 % Absolute Neuts (auto) 4.3 (1.5-7.7) 10^3/ul Absolute Lymphs (auto) 1.2 (1.0-4.8) 10^3/ul Absolute Monos (auto) 0.4 (0-0.8) 10^3/ul Absolute Eos (auto) 0.1 (0-0.6) 10^3/ul Absolute Basos (auto) 0.0 (0-0.2) 10^3/ul Absolute Nucleated RBC 0.0 10^3/ul Nucleated RBC % 0.2 Sodium 140 (135-145) mmol/L Potassium 3.6 (3.5-5.0) mmol/L Chloride 101 (101-111) mmol/L Carbon Dioxide 30 (22-32) mmol/L Anion Gap 9 (2-11) mmol/L BUN 21 (6-24) mg/dL Creatinine 0.75 (0.51-0.95) mg/dL Est GFR ( Amer) 112.2 (>60) Est GFR (Non-Af Amer) 92.7 (>60) BUN/Creatinine Ratio 28.0 H (8-20) Glucose 85 (70-100) mg/dL Lactic Acid 2.2 H* (0.5-2.0) mmol/L Calcium 9.4 (8.6-10.3) mg/dL Total Bilirubin 0.80 (0.2-1.0) mg/dL AST 104 H (13-39) U/L ALT 54 H (7-52) U/L Alkaline Phosphatase 85 (34-104) U/L C-Reactive Protein 3.37 (<8.01) mg/L Total Protein 7.4 (6.4-8.9) g/dL Albumin 4.5 (3.2-5.2) g/dL Globulin 2.9 (2-4) g/dL Albumin/Globulin Ratio 1.6 (1-3) Amylase Pending Lipase 775 H (11.0-82.0) U/L Beta HCG, Quant < 0.60 mIU/mL Monoscreen Pending Assess/Plan/Problems-Billing Assessment: 28 y/o female with alcohol use disorder, history of alcoholic pancreatitis, recent lyme disease, came in with acute pancreatitis which is likely due to both alcohol and doxycycline use, and acute hepatitis which is likely alcoholic. She was found to be pancytopenic which is not sure the cause, doxycyline vs lyme is both highly likely. - Patient Problems (1) Pancytopenia Current Visit: Yes Status: Acute Code(s): D61.818 - OTHER PANCYTOPENIA SNOMED Code(s): 946350408 Comment: - can be from doxycyline use vs lyme vs. etoh use - case report of severe aplastic anemia with doxycyline published in Blood - would check lyme antibody - add iv ceftriaxone for lyme cover - repeat CBC this afternoon, consider full workup if still low this afternoon (2) Acute pancreatitis Current Visit: Yes Status: Acute Code(s): K85.90 - ACUTE PANCREATITIS WITHOUT NECROSIS OR INFECTION, UNSP SNOMED Code(s): 205751377 Comment: - alcoholic, doxycyline likely the cause - lipase downtrending - advance to full liquid diet - continue to monitor sx and advance diet as tolerated (3) Alcoholic hepatitis Current Visit: Yes Status: Acute Code(s): K70.10 - ALCOHOLIC HEPATITIS WITHOUT ASCITES SNOMED Code(s): 270339342 Comment: Downtrending continue to monitor advise to abstain. (4) Alcohol abuse Current Visit: No Status: Acute Code(s): F10.10 - ALCOHOL ABUSE, UNCOMPLICATED SNOMED Code(s): 14797383 Comment: - pt verbalized that she is on outpatient alcohol cessation program (5) DVT prophylaxis Current Visit: No Status: Acute Code(s): HEA5910 - SNOMED Code(s): 635000890 Comment: - no DVT prophylaxis needed Status and Disposition: Inpatient Medicine Attestation Documenting Resident: Tamra Reece Supervising Physician: Dana Pereira Attending/Supervising Physician Comment: Exam improving, feeling much better. Tolerating advancing diet. Wants to go home tomorrow. Pancytopenia likely related to alcohol use disorder and marrow suppression vs. lyme. Start thiamine and folic acid. Recheck tomorrow. Attestation: This service has been performed in part by a resident under the direction of a teaching physician.I, Dana Pereira, performed the service, or was physically present during the critical, or robin portions of the service, furnished by the resident. I participated in the management of the patient.
[2019-05-08] MEDS: Docusate CAP* 100 MG PO PRN (17:05)
[2019-05-09] MEDS: NS 0.9% 1000 ML** 1,000 ML IV SCH (03:28)
[2019-05-09] MEDS: Morphine INJ* 4 MG/ML 1 ML SYRINGE (NEW SYRINGE VERSION) IV PRN ×5 (03:29→21:01)
[2019-05-09 06:25] LABS: ABS Eosinophils 0.1 10^3/ul (0-0.6); ABS Lymphocytes 1.1 10^3/ul (1.0-4.8); ABS Monocytes 0.2 10^3/ul (0-0.8); ABS Neutrophils 1.6 10^3/ul (1.5-7.7); Eosinophil % 4.4 %; Hematocrit 32 % (35-47); Hemoglobin 10.8 g/dL (12.0-16.0); Lymphocyte % 36.1 %; Mean Corpuscular HGB Conc 34 g/dL (31-36); Mean Corpuscular Hemoglobin 32 pg (27-31); Mean Corpuscular Volume 94 fL (80-97); Nucleated Red Blood Cells % 0.1; Platelet Count 100 10^3/uL (150-450); Red Blood Count 3.42 10^6 /uL (3.70-4.87); Red Cell Distribution Width 15 % (10-15); White Blood Count 3.1 10^3/uL (3.5-10.8)
[2019-05-09 06:39] LABS: BUN/Creatinine Ratio 7.1 (8-20); EGFR African American 157.1 (>60); EGFR Non-African American 129.9 (>60); Potassium 3.6 mmol/L (3.5-5.0)
[2019-05-09 06:41] LABS: Calcium 6.4 mg/dL (8.6-10.3)
[2019-05-09 07:13] LABS: Folate 16.98 ng/mL (>3.99)
[2019-05-09] MEDS ORDERED: Calcium Gluconate INJ* 2 GM in NS 0.9% 100 ML* 100 ML IV ONE (07:14)
[2019-05-09] MEDS ORDERED: SODIUM PHOSPHATE IVPB ONE (07:26)
[2019-05-09] MEDS ORDERED: NS IVPB ONE (07:26)
[2019-05-09 07:51] LABS: Magnesium 1.6 mg/dL (1.9-2.7)
[2019-05-09] MEDS: Folic Acid TAB* 1 MG PO SCH (07:53)
[2019-05-09] MEDS: Thiamine TAB* 100 MG TAB PO SCH (07:53)
[2019-05-09] MEDS ORDERED: Polyethylene Glycol 3350* 17 GM PACKET PO PRN (08:02)
[2019-05-09] MEDS ORDERED: Sodium Phosphate INJ* 30 MMOLE in NS 0.9% 250 ML* 250 ML IVPB ONE ×2 (08:18→09:00)
--- NOTE | 2019-05-09 08:53 | PN ---
Hospitalist Progress Note Date of Service: 05/09/19 Subjective- Pt says she has abdominal pain everywhere. Desrcibed pain as being a 7/10. Pt has not pooped yet, but has peed and was frustrated that she couldn't eat bc of the potential "refeeding syndrome" No overnight events Objective- Vitals Temp.-97.9 Heart rate- 65 Resp. rate- 18 O2 sat-100% BP-110/79 GENERAL: The patient is well appearing but frustrated to still be in hospital. HEENT: Pupils are equal and round. Extraocular muscles are intact. Oropharynx is clear. Oral mucosa is moist. PULMONARY: Lungs are clear to auscultation bilaterally. CARDIAC: Normal S1 and S2. Regular rate and rhythm. I do not appreciate any murmurs. ABDOMEN: Bowel sounds are present. Abdomen is soft, nondistended. She is tender to light palpation in both upper quadrants. No complaints of pain during palpation. Extremities: There is no cyanosis,edema, or clubbing of the digits. There is full active range of motion of all 4 extremities. SKIN: There is a small, approximately 1 cm in diameter, slightly erythematous plaque-like lesion on the anterior left ankle. NEUROLOGIC: Cranial nerves II through XII are grossly intact. Sensation is intact to light touch throughout. Strength is 5/5 and symmetric in both upper and lower extremities bilaterally.\\ Labs- WBC-3.1 RBC- 3.42 Hgb-10.8 Hct-32 MCH-32 platelet count-100 CO2-112 BUN-4 BUN/creat- 7.1 Glucose-107 Calcium-6.4 Phosphorus-1.0 Magnesium-1.6 B12-193 (normal) Folate-16.98(normal) Assessment/ Plan- Ms. Ruano is a 28-year-old female with a history of alcoholism and past history of alcoholic pancreatitis who presents to the emergency room with complaints of abdominal pain, nausea, and vomiting and is found to have labs and exam consistent with acute pancreatitis. Was found to have pancytopenia. Could be from doxycycline vs lyme disease. 1.) Pancytopenia from doxycycline or lyme disease -check lyme Ab -ceftriaxone -repeat CBC tomorrow morning 2.) Alcoholic pancreatitis. Differential for causes of acute pancreatitis are hypertriglyceridemia, medication induced(doxy does not cause this), gallstones -For pain-morphine 4mg IV Q4H PRN and Toradol 15mg IV PUSH Q6H PRN -Nausea- Zofran 4mg IV Q6H PRN -abstain from alcohol use moving forward. -Normal saline .9% 1000 mL @150 mls/hr 3.)Possible alcoholic hepatitis. AST:ALT ratio is 2:1 -check INR -bilirubin is normal -calculate maddrey discriminate score -abstain from alcohol 4.) Lyme disease?-Pt said waiting for results for lyme disease- Check B.Burgdorferi Antibody 5.) Alcohol withdrawal
[2019-05-09] MEDS ORDERED: Nicotine PATCH 21 MG/24 HR* PATCH TRANSDERM SCH (09:00)
[2019-05-09] MEDS: Nicotine* 4MG (FRUIT FLAVOR) GUM PO PRN ×3 (09:58→19:59)
[2019-05-09] MEDS: cefTRIAXone(*) 1 GM in NS 0.9% 50 ML* 50 ML IVPB SCH (11:08)
[2019-05-09 11:28] LABS: BUN/Creatinine Ratio 5.5 (8-20); Calcium 7.7 mg/dL (8.6-10.3); EGFR African American 160.4 (>60); EGFR Non-African American 132.6 (>60); Magnesium 1.8 mg/dL (1.9-2.7); Potassium 3.3 mmol/L (3.5-5.0)
[2019-05-09] MEDS ORDERED: Potassium Phosphate IV* 10 MMOLE in NS 0.9% 250 ML* 250 ML IVPB ONE (15:30)
[2019-05-09] MEDS: Potassium Chlor TAB* 20 MEQ TAB.ER PO SCH (16:01)
[2019-05-09] MEDS: Magnesium Chloride EC TAB* 64 MG PO SCH (16:02)
[2019-05-09] MEDS: Potassium Acid Phosphate TAB* 500 MG PO SCH ×2 (16:44→20:06)
[2019-05-09] MEDS ORDERED: Melatonin 3 MG TAB PO PRN (17:28)
--- NOTE | 2019-05-09 17:42 | PN ---
Subjective Date of Service: 05/09/19 Interval History: Patient felt her previous epigastric pain is improving. But she had bad abdominal bloatedness with no BM since Sunday. Otherwise, she has no palpitation, dizizness. She started to have craving for tobacco, but she didn't want to quit in a long run. Objective Active Medications: Docusate Sodium (Colace Cap*) 100 mg PO DAILY PRN PRN Reason: CONSTIPATION Last Admin: 05/08/19 17:05 Dose: 100 mg Folic Acid (Folvite Tab*) 1 mg PO DAILY [facility] Last Admin: 05/09/19 07:53 Dose: 1 mg Potassium Phosphate 10 mmole/ (Sodium Chloride) 253.3333 mls @ 42 mls/hr IVPB ONCE ONE Stop: 05/09/19 21:31 Ceftriaxone Sodium 1 gm/ (Sodium Chloride) 50 mls @ 100 mls/hr IVPB Q24H CASH Lorazepam (Ativan Tab(*)) 0 mg PO Q2H PRN; Protocol PRN Reason: alcohol withdrawal Magnesium Chloride (Slow Mag Ec Tab*) 64 mg PO DAILY [facility] Last Admin: 05/09/19 16:02 Dose: 64 mg Melatonin (Melatonin) 3 mg PO BEDTIME PRN PRN Reason: SLEEP Morphine Sulfate (Morphine Inj (Syringe)*) 4 mg IV Q4H PRN PRN Reason: PAIN - SEVERE Last Admin: 05/09/19 16:44 Dose: 4 mg Nicotine Polacrilex (Nicotine Gum*) 4 mg PO Q2H PRN PRN Reason: CRAVING Last Admin: 05/09/19 14:21 Dose: 4 mg Ondansetron HCl (Zofran Inj*) 4 mg IV Q6H PRN PRN Reason: NAUSEA Polyethylene Glycol/Electrolytes (Miralax*) 17 gm PO DAILY PRN PRN Reason: CONSTIPATION Last Admin: 05/09/19 09:58 Dose: 17 gm Potassium Chloride (Klor Con Er Tab*) 20 meq PO DAILY [facility] Last Admin: 05/09/19 16:01 Dose: 20 meq Potassium Phosphate (K Phos Original Tab*) 500 mg PO TID [facility] Last Admin: 05/09/19 16:44 Dose: 500 mg Thiamine HCl (Vitamin B-1 Tab*) 100 mg PO DAILY [facility] Last Admin: 05/09/19 07:53 Dose: 100 mg Vital Signs - 8 hr 05/09/19 05/09/19 05/09/19 11:15 12:14 13:37 Temperature 97.9 F Pulse Rate 71 Respiratory 16 16 16 Rate Blood Pressure 125/96 (mmHg) O2 Sat by Pulse 100 Oximetry 05/09/19 05/09/19 15:15 16:44 Temperature 98.5 F Pulse Rate 78 Respiratory 18 16 Rate Blood Pressure 114/84 (mmHg) O2 Sat by Pulse 100 Oximetry Oxygen Devices in Use Now: None Exam: General- Lying on bed, comfortably Eyes - PERRLA, EOM intact HEENT- no abnormality Lymph Nodes - No lymphadenopathy Cardiovascular -regular, no m/r/g, no JVD, no carotid bruits Lungs - clear on auscultation, no use of acessory muscles, no crackles or wheezes. Skin - No rashes, skin warm and dry, no erythematous areas Abdomen - Normal bowel sounds, abdomen soft, distended, but no tenderness. Extremities -No cyanosis or clubbing over bilateral upper extremities. Musculo Skeletal - 5/5 strength, normal range of motion, no swollen or erythematous joints. Neurological Alert and oriented x 3, CN 2-12 grossly intact. Psychiatry- anxious, not depressed. Result Diagrams: 05/09/19 05:44 05/09/19 10:42 Additional Lab and Data: Lab Results 05/06/19 05/06/19 05/06/19 Range/Units 20:33 20:33 20:33 WBC 6.0 (3.5-10.8) 10^3/uL RBC 4.46 (3.70-4.87) 10^6 /uL Hgb 14.0 (12.0-16.0) g/dL Hct 41 (35-47) % MCV 92 (80-97) fL MCH 31 (27-31) pg MCHC 34 (31-36) g/dL RDW 15 (10-15) % Plt Count 160 (150-450) 10^3/uL MPV 7.6 (7.4-10.4) fL Neut % (Auto) 71.2 % Lymph % (Auto) 20.7 % Meade % (Auto) 6.7 % Eos % (Auto) 1.2 % Baso % (Auto) 0.2 % Absolute Neuts (auto) 4.3 (1.5-7.7) 10^3/ul Absolute Lymphs (auto) 1.2 (1.0-4.8) 10^3/ul Absolute Monos (auto) 0.4 (0-0.8) 10^3/ul Absolute Eos (auto) 0.1 (0-0.6) 10^3/ul Absolute Basos (auto) 0.0 (0-0.2) 10^3/ul Absolute Nucleated RBC 0.0 10^3/ul Nucleated RBC % 0.2 Sodium 140 (135-145) mmol/L Potassium 3.6 (3.5-5.0) mmol/L Chloride 101 (101-111) mmol/L Carbon Dioxide 30 (22-32) mmol/L Anion Gap 9 (2-11) mmol/L BUN 21 (6-24) mg/dL Creatinine 0.75 (0.51-0.95) mg/dL Est GFR ( Amer) 112.2 (>60) Est GFR (Non-Af Amer) 92.7 (>60) BUN/Creatinine Ratio 28.0 H (8-20) Glucose 85 (70-100) mg/dL Lactic Acid 2.2 H* (0.5-2.0) mmol/L Calcium 9.4 (8.6-10.3) mg/dL Total Bilirubin 0.80 (0.2-1.0) mg/dL AST 104 H (13-39) U/L ALT 54 H (7-52) U/L Alkaline Phosphatase 85 (34-104) U/L C-Reactive Protein 3.37 (<8.01) mg/L Total Protein 7.4 (6.4-8.9) g/dL Albumin 4.5 (3.2-5.2) g/dL Globulin 2.9 (2-4) g/dL Albumin/Globulin Ratio 1.6 (1-3) Amylase Pending Lipase 775 H (11.0-82.0) U/L Beta HCG, Quant < 0.60 mIU/mL Monoscreen Pending Assess/Plan/Problems-Billing Assessment: 28 y/o female with alcohol use disorder, history of alcoholic pancreatitis, recent lyme disease, came in with acute pancreatitis due to both alcohol and doxycycline use, and acute hepatitis which is likely alcoholic. Her course complicated by pancytopenia, cause is unclear, chronic alcoholism causing myelosuppresion, lyme or doxycyline are the likely causes. She is developing refeeding syndrome with electrolytes abnormalities today. - Patient Problems (1) Refeeding syndrome Current Visit: Yes Status: Acute Code(s): E87.8 - OTH DISORDERS OF ELECTROLYTE AND FLUID BALANCE, NEC SNOMED Code(s): 126027063 Comment: - low phosphate, low Mg, low ca - likely due to prolonged starving and chronic alcoholism - start iv electrolytes replacement with close monitoring - watch fluid status (2) Pancytopenia Current Visit: Yes Status: Acute Code(s): D61.818 - OTHER PANCYTOPENIA SNOMED Code(s): 294604118 Comment: - can be from doxycyline use vs lyme vs. etoh use - lyme antibody negative, but it could be too early to be detected, continue iv ceftriaxone for lyme cover - continue monitor blood counts - folate b12 replete (3) Acute pancreatitis Current Visit: Yes Status: Acute Code(s): K85.90 - ACUTE PANCREATITIS WITHOUT NECROSIS OR INFECTION, UNSP SNOMED Code(s): 634855948 Comment: - alcoholic, doxycyline likely the cause - lipase downtrending - advance to soft diet (4) Alcoholic hepatitis Current Visit: Yes Status: Acute Code(s): K70.10 - ALCOHOLIC HEPATITIS WITHOUT ASCITES SNOMED Code(s): 944295072 Comment: Downtrending continue to monitor advise to abstain. (5) Alcohol abuse Current Visit: No Status: Acute Code(s): F10.10 - ALCOHOL ABUSE, UNCOMPLICATED SNOMED Code(s): 92825653 Comment: - pt verbalized that she is on outpatient alcohol cessation program (6) DVT prophylaxis Current Visit: No Status: Acute Code(s): QAJ3130 - SNOMED Code(s): 798453354 Comment: - no DVT prophylaxis needed Status and Disposition: Inpatient Medicine Attestation Documenting Resident: Tamra Reece Supervising Physician: Dana Pereira Attending/Supervising Physician Comment: Pancreatitis improving, now with refeeding syndrome. Needs aggressive electrolyte repletion and close monitoring. Attestation: This service has been performed in part by a resident under the direction of a teaching physician.I, Dana Pereira, performed the service, or was physically present during the critical, or robin portions of the service, furnished by the resident. I participated in the management of the patient.
[2019-05-09 19:48] LABS: BUN/Creatinine Ratio 6.2 (8-20); Calcium 7.4 mg/dL (8.6-10.3); EGFR African American 132.3 (>60); EGFR Non-African American 109.3 (>60); Phosphorus 2.2 mg/dL (2.5-5.0); Potassium 3.7 mmol/L (3.5-5.0)
[2019-05-09] MEDS: Docusate CAP* 100 MG PO PRN (20:00)
[2019-05-10] MEDS: Morphine INJ* 4 MG/ML 1 ML SYRINGE (NEW SYRINGE VERSION) IV PRN ×3 (00:46→09:10)
[2019-05-10 06:17] LABS: ABS Eosinophils 0.1 10^3/ul (0-0.6); ABS Lymphocytes 1.3 10^3/ul (1.0-4.8); ABS Monocytes 0.2 10^3/ul (0-0.8); ABS Neutrophils 2.1 10^3/ul (1.5-7.7); Eosinophil % 2.4 %; Hematocrit 33 % (35-47); Hemoglobin 11.4 g/dL (12.0-16.0); Lymphocyte % 34.9 %; Mean Corpuscular HGB Conc 34 g/dL (31-36); Mean Corpuscular Hemoglobin 32 pg (27-31); Mean Corpuscular Volume 93 fL (80-97); Mean Platelet Volume 8.3 fL (7.4-10.4); Nucleated Red Blood Cells % 0.1; Platelet Count 120 10^3/uL (150-450); Red Cell Distribution Width 15 % (10-15); White Blood Count 3.7 10^3/uL (3.5-10.8)
[2019-05-10] MEDS: Nicotine* 4MG (FRUIT FLAVOR) GUM PO PRN ×3 (06:20→13:45)
[2019-05-10 06:34] LABS: Albumin 3.4 g/dL (3.2-5.2); Albumin/Globulin Ratio 1.5 (1-3); BUN/Creatinine Ratio 7.5 (8-20); Calcium 7.2 mg/dL (8.6-10.3); EGFR African American 167.4 (>60); EGFR Non-African American 138.4 (>60); Globulin 2.2 g/dL (2-4); Phosphorus 1.6 mg/dL (2.5-5.0); Potassium 3.5 mmol/L (3.5-5.0); Total Bilirubin 0.3 mg/dL (0.2-1.0); Total Protein 5.6 g/dL (6.4-8.9)
[2019-05-10] MEDS ORDERED: Calcium Gluconate INJ* 1 GM in NS 0.9% 50 ML* 50 ML IVPB ONE (07:00)
[2019-05-10] MEDS: Magnesium Chloride EC TAB* 64 MG PO SCH (07:15)
[2019-05-10] MEDS: Potassium Acid Phosphate TAB* 500 MG PO SCH ×2 (07:15→13:20)
[2019-05-10] MEDS: Folic Acid TAB* 1 MG PO SCH (07:15)
[2019-05-10] MEDS: Thiamine TAB* 100 MG TAB PO SCH (07:15)
[2019-05-10] MEDS: Potassium Chlor TAB* 20 MEQ TAB.ER PO SCH (07:16)
[2019-05-10] MEDS ORDERED: Sodium Phosphate INJ* 30 MMOLE in NS 0.9% 250 ML* 250 ML IVPB ONE (08:00)
--- NOTE | 2019-05-10 08:33 | PN ---
Hospitalist Progress Note Date of Service: 05/10/19 Subjective- Pt says she improved abdominal pain which is a 4-5/10 and back pain "everywhere " that is a 7/10. She has passed a bowel movement. No overnight events Objective- Vitals Temp.-98 Heart rate- 66 Resp. rate- 16 O2 sat-98% BP-103/74 GENERAL: The patient is well appearing but frustrated to still be in hospital. HEENT: Pupils are equal and round. Extraocular muscles are intact. Oropharynx is clear. Oral mucosa is moist. PULMONARY: Lungs are clear to auscultation bilaterally. CARDIAC: Normal S1 and S2. Regular rate and rhythm. I do not appreciate any murmurs. ABDOMEN: Bowel sounds are present. Abdomen is soft, nondistended. Slight pain on palpation in all quadrants. Extremities: There is no cyanosis,edema, or clubbing of the digits. There is full active range of motion of all 4 extremities. SKIN: old "bullseye rash" has improved NEUROLOGIC: Cranial nerves II through XII are grossly intact. Sensation is intact to light touch throughout. Strength is 5/5 and symmetric in both upper and lower extremities bilaterally.\\ Labs- WBC-3.7 (normal now) RBC- 3.60 (improved) Hgb-11.4 (improved) Hct-33 MCH-32 platelet count-120 BUN-4 BUN/creat- 7.5 Glucose-121 Calcium-7.2 Phosphorus-1.6 Assessment/ Plan- Ms. Ruano is a 28-year-old female with a history of alcoholism and past history of alcoholic pancreatitis who presents to the emergency room with complaints of abdominal pain, nausea, and vomiting and is found to have labs and exam consistent with acute pancreatitis. Was found to have pancytopenia. Could be from doxycycline vs lyme disease. 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 -methylmalonic acid (ordered) 3) Alcoholic pancreatitis. Caused by alcohol or doxycycline. -For pain-morphine 4mg IV Q4H PRN and Toradol 15mg IV PUSH Q6H PRN -Nausea- Ondansetron 4mg IV Q6H PRN -abstain from alcohol use moving forward. -Normal saline .9% 1000 mL @150 mls/hr 4.)Possible alcoholic hepatitis. AST:ALT ratio no longer 2:1(AST-42, ALT-32) -check INR -abstain from alcohol 5.) Lyme disease?-Check B.Burgdorferi Antibody negative but could be early ( takes 3 weeks for Ab to form) 6.) Alcohol withdrawal -Thiamine 100mg PO daily -Lorazepam PO PRN-WAM 7.)nicotine craving -nicotine polacrilex 4mg PO Q2H PRN
[2019-05-10] MEDS ORDERED: cefTRIAXone(*) 1 GM in NS 0.9% 50 ML* 50 ML IVPB SCH (09:00)
[2019-05-10] MEDS ORDERED: Cyanocobalamin TAB* 500 MCG PO SCH (12:00)
[2019-05-10 13:00] LABS: Albumin 3.8 g/dL (3.2-5.2); Albumin/Globulin Ratio 1.5 (1-3); BUN/Creatinine Ratio 7.3 (8-20); Calcium 8.5 mg/dL (8.6-10.3); EGFR African American 160.4 (>60); EGFR Non-African American 132.6 (>60); Globulin 2.6 g/dL (2-4); Magnesium 1.9 mg/dL (1.9-2.7); Phosphorus 2.5 mg/dL (2.5-5.0); Potassium 3.7 mmol/L (3.5-5.0); Total Bilirubin 0.2 mg/dL (0.2-1.0); Total Protein 6.4 g/dL (6.4-8.9)
[2019-05-10] MEDS ORDERED: Amoxicillin PO (*) 500 MG CAP PO SCH (14:00)
[2019-05-10 16:39] VITALS: BP 118/84
--- NOTE | 2019-05-10 19:43 | DS ---
CC: Darby Sheehan NP, at [facility] * DISCHARGE SUMMARY: DATE OF ADMISSION: 05/07/19 DATE OF DISCHARGE: 05/10/19 PRINCIPAL DISCHARGE DIAGNOSES: 1. Acute pancreatitis. 2. Lyme disease. 3. Refeeding syndrome. 4. Alcohol use disorder. SECONDARY DISCHARGE DIAGNOSES: 1. Opioid use disorder. 2. History of pulmonary embolism. MEDICATIONS AT DISCHARGE: 1. Suboxone on 8/2 mg films, 3 films sublingual daily. 2. Amoxicillin 500 mg t.i.d. for 7 more days. 3. Vitamin B12 1000 mcg daily. 4. Thiamine 100 mg daily. 5. Trazodone 50 mg q.h.s. for sleep. PHYSICAL EXAM THE TIME OF DISCHARGE: Temperature 97.9, heart rate 62, respiratory rate 16, pulse ox 100% on room air, blood pressure 118/84. General : Alert, well- appearing, nontoxic young female, in no distress, walking in the hallways. HEENT: Pupils 4 mm bilaterally and reactive to light. Anicteric sclerae. Oral mucosa is moist. Neck: No JVP or adenopathy. Chest: Regular rate and rhythm with no murmurs. Her lungs are clear bilaterally. Abdomen is soft, mildly tender to deep palpation in the epigastric area without radiation or guarding. No CVA tenderness. Extremities: She has a 3 cm patch of erythema on the left esposito. No ecchymoses or edema. HOSPITAL COURSE BY PROBLEM: 1. Acute pancreatitis. She presented with epigastric pain and has a history of recurrent pancreatitis related to alcohol use. She had recently been started on doxycycline for presumed Lyme disease. I suspect that her pancreatitis actually was provoked by doxycycline as her pain began prior to her starting to drink alcohol after being sober for 6 months, then she drank alcohol for 2 days and came to the emergency department with abdominal pain and was found to have an elevated lipase and amylase, and she was admitted for acute pancreatitis. Her gallbladder ultrasound was negative for gallstones. She improved quickly with supportive care and had not required IV morphine on the day of discharge. She was tolerating a full diet without any nausea and was having normal bowel movements at the time of discharge. She remained afebrile throughout her course. 2. Refeeding syndrome. Several days into her hospitalization, as her diet was advanced, she developed hypocalcemia, hypomagnesemia, and hypophosphatemia. She was monitored on telemetry and her electrolytes were repleted aggressively with frequent lab draws. On the morning of admission, her electrolytes were normal, and she is being discharged on supplements. This suggests a more prolonged starvation or alcohol dependence. 3. Pancytopenia likely related to alcohol use and/or Lyme disease. On the day of discharge, her white blood cell count had returned to the normal range. Her hemoglobin was 11.4 which is about baseline for her and her platelets were 120, 000. She is motivated to stay sober and wishes to follow up with Darby at [facility] and has had good success following with the alcohol program at [facility]. 4. Lyme disease. She had a found a tick on her esposito the week prior and had been started on empiric doxycycline. Again as mentioned, I am concerned that the doxycycline may have provoked her pancreatitis, so doxycycline was discontinued and she was started on ceftriaxone while she was n.p.o. A Lyme antibody was negative, but this is not valuable as it may have been too soon for the antibody to turn positive, so she was continued on ceftriaxone until she was discharged and she is sent home on amoxicillin to complete a 14-day course. 5. Alcohol use disorder. She had no evidence of withdrawal on this admission. 6. Opioid use disorder. She was discharged on her home dose of Suboxone. She will follow up with Darby for Suboxone. DISPOSITION: Jennifer is being discharged to home on 05/10/19. She is instructed to contact [facility] for primary care. She should have a repeat BMP, phos, and mag within the week. CONDITION AT THE TIME OF DISCHARGE: Stable. [id number]/[facility] #: [id number] TOM
[2019-05-10] MEDS ORDERED: traZODone TAB* 50 MG TAB PO SCH (21:00)
[2019-05-10] MEDS ORDERED: Nicotine Patch Removal NOTE PATCH OFF SCH (21:00)
== END 2019-05-10 16:15 | disposition home or self-care (01) | DRG 282 ==
LOC: ED 18:56 → MED 05-07 01:35
PROVIDERS: ADMIT Hospitalist; ATTEND Internal Medicine
DX: K85.90 Acute pancreatitis without necrosis or infection, unspecified (principal); D61.818 Other pancytopenia; A69.20 Lyme disease, unspecified; F90.9 Attention-deficit hyperactivity disorder, unspecified type; F41.0 Panic disorder [episodic paroxysmal anxiety]; F31.9 Bipolar disorder, unspecified; F17.210 Nicotine dependence, cigarettes, uncomplicated; E87.8 Other disorders of electrolyte and fluid balance, not elsewhere classified; E78.1 Pure hyperglyceridemia; F11.90 Opioid use, unspecified, uncomplicated; E83.51 Hypocalcemia; E83.42 Hypomagnesemia; F10.10 Alcohol abuse, uncomplicated; Z86.711 Personal history of pulmonary embolism; Z91.5 Personal history of self-harm; Z72.89 Other problems related to lifestyle
CPT/HCPCS: 36415; 76705; 80048; 80053; 80307; 80320; 81003; 81015; 82150; 82607; 82746; 83090; 83605; 83690; 83735; 83921; 84100; 84702; 85025; 85060; 86140; 86308; 86618; 87086; 96374; 96375; 99284; A9270-GY; G0480; J0610; J0696; J1170; J1885; J2270; J2405

== ENCOUNTER 2019-11-23 18:04 | Emergency (ER) | payer OTHER ==
--- NOTE | 2019-11-23 18:29 | ED ---
Abdominal Pain/Female - HPI Summary HPI Summary: 29-year-old female with a significant past medical history of pulmonary embolism , alcoholic pancreatitis, multiple psychiatric problems presents to the emergency department today complaining of 7 out of 10 epigastric pain which she describes as burning. Patient states she's had these symptoms for approximately 2-3 days with associated nausea, vomiting and diarrhea. Patient endorses proximally 7 episodes of emesis and 7 episodes of diarrhea daily for approximately 2-3 days. Patient denies associated fevers or blood per rectum. Patient states this feels similar to her episode of pancreatitis which was approximately 8 months ago. Patient states she has approximately 4 drinks per night. Patient states her pain is made better with Tylenol and ibuprofen but made worse with eating. Patient is otherwise well and denies fevers, chest pain , shortness of breath, rash, pain with urination. - History of Current Complaint Chief Complaint: EDAbdPain Stated Complaint: THROWING UP/ABD PAIN PER PT Time Seen by Provider: 11/23/19 18:15 Hx Obtained From: Patient Hx Last Menstrual Period: 09/29/16 Onset/Duration: Gradual Onset Timing: Constant Severity Currently: Severe Pain Intensity: 7 Pain Scale Used: 0-10 Numeric Location: Epigastric Radiates: No Character: Sharp, Burning Aggravating Factor(s): Food Alleviating Factor(s): OTC Analgesics Associated Signs and Symptoms: Positive: Decreased Appetite, Nausea, Vomiting, Diarrhea. Negative: Diaphoresis, Fever, Constipation, Blood in Stool, Urinary Symptoms, Vaginal Bleeding, Vaginal Discharge Allergies/Adverse Reactions: Allergies Allergy/AdvReac Type Severity Reaction Status Date / Time No Known Allergies Allergy Verified 11/23/19 18:11 Home Medications: Home Medications Buprenorphine HCl/Naloxone HCl [Buprenorp-Nalox 8-2 mg Sl Film] 3 each SL DAILY 02/05/19 [History Confirmed 11/23/19] PMH/Surg Hx/FS Hx/Imm Hx Endocrine/Hematology History: Reports: Hx Anemia Denies: Hx Diabetes Cardiovascular History: Denies: Hx Hypertension Respiratory History: Reports: Hx Pulmonary Embolism History: Denies: Hx Renal Disease Sensory History: Denies: Hx Contacts or Glasses, Hx Legally Blind, Hx Deafness, Hx Hearing Aid Opthamlomology History: Denies: Hx Contacts or Glasses, Hx Legally Blind Psychiatric History: Reports: Hx Anxiety, Hx Attention Deficit Hyperactivity Disorder, Hx Eating Disorder, Hx Depression, Hx Panic Disorder, Hx Inpatient Treatment, Hx Community Mental Health Tx, Hx Bipolar Disorder, Hx Suicide Attempt, Hx Substance Abuse - etoh Denies: Hx Post Traumatic Stress Disorder, Hx Schizophrenia - Bio. mom diagnosed with schizophrenia, Hx of Violent Episodes Against Others, Other Psychiatric Issues/Disorders - Surgical History Surgery Procedure, Year, and Place: none - Immunization History Date of Tetanus Vaccine: unk Date of Influenza Vaccine: fall 2017 Infectious Disease History: No Infectious Disease History: Denies: Traveled Outside the [place] in Last 30 Days - Family History Known Family History: Positive: Other - Adopted. Knows biological mom and denies any known DVT, PE or lung CA Negative: Cardiac Disease, Hypertension, Diabetes - Social History Alcohol Use: pt drink a liter of alcohol yesterday morning and night before Alcohol Amount: several drinks daily Hx Substance Use: No Substance Use Type: Reports: None Substance Use Comment - Amount & Last Used: heroin- 2 weeks ago; marijuana today Hx Tobacco Use: Yes Smoking Status (MU): Light Every Day Tobacco Smoker Type: Cigarettes Amount Used/How Often: 5 CIGS PER DAY Review of Systems Constitutional: Negative Eyes: Negative ENT: Negative Cardiovascular: Negative Respiratory: Negative Positive: Abdominal Pain, Vomiting, Diarrhea, Nausea Genitourinary: Negative Musculoskeletal: Negative Skin: Negative Neurological/Mental Status: Negative Psychological: Normal All Other Systems Reviewed And Are Negative: Yes Physical Exam - Summary Physical Exam Summary: Inspection the abdomen revealed. Auscultation reveals normoactive bowel sounds. Palpation reveals tenderness in the epigastric region. Negative Owen 's, McBurney's, psoas, obturator, Rovsing sign. No rebound tenderness or peritoneal signs. No guarding or rigidity. Triage Information Reviewed: Yes Vital Signs On Initial Exam: Initial Vitals Temp Pulse Resp BP Pulse Ox 98.5 F 101 16 137/102 99 11/23/19 18:09 11/23/19 18:09 11/23/19 18:11/23/19 18:11/23/19 18:09 Vital Signs Reviewed: Yes Appearance: Positive: Well-Appearing, No Pain Distress, Well-Nourished Skin: Positive: Warm, Skin Color Reflects Adequate Perfusion Eyes: Positive: EOMI, LAURITA ENT: Positive: Hearing grossly normal Respiratory/Lung Sounds: Positive: Clear to Auscultation, Breath Sounds Present Cardiovascular: Positive: RRR, S1, S2 Abdomen Description: Positive: No Organomegaly, Soft. Negative: CVA Tenderness (R), CVA Tenderness (L), Distended, Guarding, McBurney's Point Tenderness Bowel Sounds: Positive: Present Musculoskeletal: Positive: Strength/ROM Intact Neurological: Positive: Sensory/Motor Intact, Alert, Oriented to Person Place, Time, Normal Gait, Facial Symmetry, Speech Normal Psychiatric: Positive: Normal, Affect/Mood Appropriate AVPU Assessment: Alert Procedures - Sedation Patient Received Moderate/Deep Sedation with Procedure: No Diagnostics - Vital Signs Vital Signs Temp Pulse Resp BP Pulse Ox 11/23/19 18:09 98.5 F 101 16 137/102 99 - Laboratory Result Diagrams: 11/23/19 18:35 11/23/19 19:42 Lab Statement: Any lab studies that have been ordered have been reviewed, and results considered in the medical decision making process. Abdominal Pain Fem Course/Dx - Course Course Of Treatment: Patient was evaluated in emergency department today for abdominal pain. Vitals noted stable. Laboratory studies show No evidence of leukocytosis with white blood for count of 3.8. There is evidence of megaloblastic anemia with MCV 101. There are no significant electrolyte abnormalities. Liver function enzymes are all elevated with AST 96, ALT 75, alkaline phosphatase 248. T bili is 0.50. CRP negative. Beta hCG negative for . Lipase within normal limits. Ultrasound of the abdomen shows hypoechoic mass lesion with irregular borders in the head of the pancreas measuring 3.83.026 cm which was not visible on prior ultrasound. CT of the abdomen with contrast shows previously seen lesion in the ascending of the head of the pancreas is not evident on current CT, it is possible that the lesion was actually adjacent to the duodenum as there is no mass lesions present and the location visible on CT. There is wall thickening in the ascending colon and hepatic flexure and proximal transverse colon, cannot exclude mild nonspecific colitis. GI, Dr. Blackwood was consulted who believed there is no pathology requiring intervention time. She desired patient to follow-up with her in her office within 2 weeks for further evaluation and management. Patient discharged outpatient follow-up. - Diagnoses Differential Diagnosis: Positive: Appendicitis, Gall Bladder Disease, Pancreatitis, Peptic Ulcer Disease Provider Diagnoses: Abdominal pain, Transaminitis - Provider Notifications Discussed Care Of Patient With: Allison Blackwood - believed patient did not require medical intervention at this time. Patient is to follow-up in her office within 2 weeks for further evaluation and management. Discharge ED - Sign-Out/Discharge Documenting (check all that apply): Patient Departure - Discharge Plan Condition: Stable Disposition: HOME Patient Education Materials: Abdominal Pain (ED) Forms: *Work Release Referrals: Allison Blackwood MD [Medical Doctor] - 2 Weeks (Urgent) Additional Instructions: You were seen in the emergency department today due to abdominal pain. Your liver enzymes are elevated which is likely due to drinking. Please attempt to stop drinking to alleviate your pain. Please follow up with a GI doctor within 2 weeks for further evaluation and management due to the elevation in your liver functions. Please return to this emergency department immediately should you develop any new or worsening symptoms. - Billing Disposition and Condition Condition: STABLE Disposition: Home - Attestation Statements Provider Attestation: I was available for consultation for this patient. I did not evaluate the patient or participate in any medical decision making or disposition decisions unless I am specifically named in the chart as having consulted on the patient. If I have consulted on the patient, please see my own ED note on the patient encounter. Jeremy Fuentes MD
[2019-11-23] MEDS: NS 0.9% 1000 ML** 2,000 ML IV ONE (18:36)
[2019-11-23 18:42] LABS: ABS Lymphocytes 1.1 10^3/ul (1.0-4.8); ABS Monocytes 0.3 10^3/ul (0-0.8); ABS Neutrophils 2.4 10^3/ul (1.5-7.7); Eosinophil % 0.2 %; Hematocrit 40 % (35-47); Mean Corpuscular HGB Conc 35 g/dL (31-36); Mean Corpuscular Hemoglobin 35 pg (27-31); Mean Corpuscular Volume 101 fL (80-97); Mean Platelet Volume 8.7 fL (7.4-10.4); Nucleated Red Blood Cells % 0.1; Platelet Count 165 10^3/uL (150-450); Red Blood Count 4.01 10^6 /uL (3.70-4.87); Red Cell Distribution Width 14 % (10-15); White Blood Count 3.8 10^3/uL (3.5-10.8)
[2019-11-23] MEDS ORDERED: Ondansetron ODT TAB* 4 MG SL ONE (18:50)
[2019-11-23 18:59] LABS: ALT 75 U/L (7-52); Albumin 4.1 g/dL (3.2-5.2); Albumin/Globulin Ratio 1.3 (1-3); Alkaline Phosphatase 248 U/L (34-104); BUN/Creatinine Ratio 13.5 (8-20); Blood Urea Nitrogen 10 mg/dL (6-24); C Reactive Protein < 1.00 mg/L (<8.01); CO2 Carbon Dioxide 21 mmol/L (22-32); Calcium 9.4 mg/dL (8.6-10.3); Chloride 102 mmol/L (101-111); EGFR African American 113.1 (>60); EGFR Non-African American 93.5 (>60); Globulin 3.2 g/dL (2-4); Glucose 135 mg/dL (70-100); Sodium 139 mmol/L (135-145); Total Protein 7.3 g/dL (6.4-8.9)
[2019-11-23 19:05] LABS: HCG Pregnancy < 0.60 mIU/mL
[2019-11-23 19:08] LABS: Anion Gap 16 mmol/L (2-11)
[2019-11-23] MEDS ORDERED: Iohexol 300* (CONTRAST) 10 ML SDV IV ONE (19:26)
[2019-11-23 20:06] LABS: Potassium Redraw 3.4 mmol/L (3.5-5.0)
[2019-11-23 21:53] VITALS: BP 112/77
== END 2019-11-23 21:50 | disposition home or self-care (01) ==
LOC: ED 18:04
DX: R10.13 Epigastric pain (principal); R74.0 Nonspecific elevation of levels of transaminase and lactic acid dehydrogenase [LDH]; R11.2 Nausea with vomiting, unspecified; R19.7 Diarrhea, unspecified; F17.210 Nicotine dependence, cigarettes, uncomplicated; F41.9 Anxiety disorder, unspecified; F90.9 Attention-deficit hyperactivity disorder, unspecified type; F32.9 Major depressive disorder, single episode, unspecified; Z86.711 Personal history of pulmonary embolism; Z79.899 Other long term (current) drug therapy; Z87.19 Personal history of other diseases of the digestive system
CPT/HCPCS: 36415; 74177; 76705; 80053; 83690; 83735; 84702; 85025; 86140; 96360; 99283; A9270-GY; Q9967

== ENCOUNTER 2020-01-15 03:47 | Observation (INO) ==
[2020-01-15 04:06] LABS: ABS Lymphocytes 1.2 10^3/ul (1.0-4.8); ABS Monocytes 0.2 10^3/ul (0-0.8); Eosinophil % 0.9 %; Hematocrit 41 % (35-47); Lymphocyte % 24.8 %; Mean Corpuscular HGB Conc 34 g/dL (31-36); Mean Corpuscular Hemoglobin 34 pg (27-31); Mean Corpuscular Volume 99 fL (80-97); Mean Platelet Volume 8.3 fL (7.4-10.4); Nucleated Red Blood Cells % 0.8; Platelet Count 155 10^3/uL (150-450); Red Blood Count 4.13 10^6 /uL (3.70-4.87); Red Cell Distribution Width 13 % (10-15); White Blood Count 4.7 10^3/uL (3.5-10.8)
[2020-01-15] MEDS ORDERED: Pantoprazole VIAL 40 MG VIAL IV ONE (04:13)
[2020-01-15] MEDS ORDERED: Ondansetron 4 mg VIAL 2 MG/ML 2 ml VIAL IV ONE (04:13)
[2020-01-15] MEDS ORDERED: NS 0.9% 1000 ml BAG 1,000 ML IV ONE ×2 (04:13→05:14)
[2020-01-15] MEDS ORDERED: Thiamine 100 MG/ML 2 ml VIAL (200 mg) IM ONE (04:21)
[2020-01-15 04:25] LABS: ALT 39 U/L (7-52); AST 169 U/L (13-39); Albumin 4.5 g/dL (3.2-5.2); Albumin/Globulin Ratio 1.4 (1-3); Alkaline Phosphatase 148 U/L (34-104); Anion Gap 10 mmol/L (2-11); BUN/Creatinine Ratio 15.8 (8-20); Blood Urea Nitrogen 12 mg/dL (6-24); C Reactive Protein < 1.00 mg/L (<8.01); CO2 Carbon Dioxide 30 mmol/L (22-32); Calcium 9.4 mg/dL (8.6-10.3); Chloride 100 mmol/L (101-111); EGFR African American 109.6 (>60); EGFR Non-African American 90.6 (>60); Globulin 3.3 g/dL (2-4); Glucose 145 mg/dL (70-100); Potassium 3.8 mmol/L (3.5-5.0); Sodium 140 mmol/L (135-145); Total Protein 7.8 g/dL (6.4-8.9)
[2020-01-15 04:34] LABS: Amylase 53 U/L (29-103)
[2020-01-15 04:46] LABS: HCG Pregnancy < 0.60 mIU/mL
[2020-01-15 05:24] LABS: Alcohol, S 246 mg/dL (<10)
[2020-01-15 06:12] LABS: Urine Appearance Cloudy; Urine Bilirubin Negative (Negative); Urine Blood 2+ (Negative); Urine Color Yellow; Urine Glucose Negative (Negative); Urine Ketones Negative (Negative); Urine Nitrite Negative (Negative); Urine Protein 1+(30 mg/dL) (Negative); Urine Specific Gravity 1.015 (1.010-1.030); Urine Urobilinogen Negative (Negative)
[2020-01-15 06:15] LABS: Urine Bacteria Absent (Absent); Urine Red Blood Cell 3+(>10/hpf) (Absent); Urine Squamous Epithelial Cell Present (Absent); Urine White Blood Cell Trace(0-5/hpf) (Absent)
[2020-01-15 06:43] LABS: Urine Benzodiazepine Screen None Detected (None Detect); Urine Opiates Screen None Detected (None Detect)
[2020-01-15] MEDS ORDERED: fentaNYL 100 mcg/2 ml 50 MCG/ML VIAL IV SLOW PU ONE ×2 (06:48→08:31)
[2020-01-15] MEDS ORDERED: Iohexol 300 (CONTRAST) 10 ML SDV IV ONE (06:54)
[2020-01-15] MEDS ORDERED: Lactulose 30 ml UDC PO ONE ×2 (07:01)
[2020-01-15] MEDS: Lactated Ringers 1000 ml BAG 1,000 ML IV SCH ×2 (08:26→17:23)
[2020-01-15] MEDS ORDERED: Lactulose 30 ml UDC PO SCH (09:00)
[2020-01-15] MEDS ORDERED: Ondansetron 4 mg VIAL 2 MG/ML 2 ml VIAL IV PRN (09:20)
[2020-01-15 09:35] LABS: INR 1.01 (0.82-1.09)
[2020-01-15] MEDS: Nicotine GUM 2MG FRUIT FLAVOR PO PRN ×3 (12:53→21:22)
[2020-01-15] MEDS: Nicotine PATCH 7 MG/24 HR PATCH TRANSDERM SCH (12:55)
[2020-01-15] MEDS ORDERED: Buprenorp/Nalox 8-2 MG FILM SL FILM SCH (14:00)
[2020-01-15] MEDS: Buprenorp/Nalox 8-2 MG FILM SL FILM SCH ×2 (14:05→21:21)
[2020-01-15] MEDS: Enoxaparin 40 MG/0.4 ML SYR(*) SUBCUT SCH (17:23)
[2020-01-15] MEDS: LORazepam 1 mg TAB (*) PO PRN ×2 (21:22→21:38)
[2020-01-16] MEDS: LORazepam 0.5 mg TAB (*) PO PRN ×5 (01:07→23:28)
[2020-01-16] MEDS: Lactated Ringers 1000 ml BAG 1,000 ML IV SCH (01:42)
[2020-01-16 06:49] LABS: Albumin 3.1 g/dL (3.2-5.2); Albumin/Globulin Ratio 1.3 (1-3); BUN/Creatinine Ratio 8.5 (8-20); Calcium 7.3 mg/dL (8.6-10.3); EGFR African American 118.6 (>60); Globulin 2.3 g/dL (2-4); Indirect Bilirubin 0.3 mg/dL (0.3-1.0); Potassium 3.3 mmol/L (3.5-5.0); Total Bilirubin 0.4 mg/dL (0.2-1.0); Total Protein 5.4 g/dL (6.4-8.9)
[2020-01-16] MEDS ORDERED: Multivitamins/Minerals TAB PO SCH (09:00)
[2020-01-16] MEDS: Buprenorp/Nalox 8-2 MG FILM SL FILM SCH ×3 (11:07→20:11)
[2020-01-16] MEDS: NS 0.9% 1000 ml BAG 1,000 ML IV SCH ×2 (11:08→20:13)
[2020-01-16] MEDS: Nicotine PATCH 7 MG/24 HR PATCH TRANSDERM SCH (11:08)
[2020-01-16] MEDS: Nicotine GUM 2MG FRUIT FLAVOR PO PRN ×2 (13:25→20:11)
[2020-01-16] MEDS: Enoxaparin 40 MG/0.4 ML SYR(*) SUBCUT SCH (17:08)
[2020-01-17] MEDS: LORazepam 0.5 mg TAB (*) PO PRN ×2 (03:16→03:29)
[2020-01-17 08:32] VITALS: BP 100/69
== END 2020-01-17 09:35 | disposition home or self-care (01) ==
LOC: ED 03:47 → MEDTELE 03:47 → MED 01-16 13:55
PROVIDERS: ADMIT Internal Medicine; ATTEND Hospitalist

== ENCOUNTER 2020-06-15 05:18 | Inpatient (IN) ==
[2020-06-15 06:11] LABS: ABS Lymphocytes 1.5 10^3/ul (1.0-4.8); ABS Monocytes 0.4 10^3/ul (0-0.8); ABS Neutrophils 3.5 10^3/ul (1.5-7.7); Eosinophil % 0.8 %; Hematocrit 42 % (35-47); Lymphocyte % 27.7 %; Mean Corpuscular HGB Conc 34 g/dL (31-36); Mean Corpuscular Hemoglobin 33 pg (27-31); Mean Corpuscular Volume 98 fL (80-97); Platelet Count 175 10^3/uL (150-450); Red Blood Count 4.22 10^6 /uL (3.70-4.87); Red Cell Distribution Width 15 % (10-15); White Blood Count 5.4 10^3/uL (3.5-10.8)
[2020-06-15] MEDS ORDERED: Thiamine 100 MG/ML 2 ml VIAL 100 MG, Folic Acid 1 MG, Multiple Vitamin IV ADULT 10 ML i... IV ONE ×2 (06:14→16:37)
[2020-06-15] MEDS ORDERED: Pantoprazole VIAL 40 MG VIAL IV ONE (06:15)
[2020-06-15] MEDS ORDERED: NS 0.9% 1000 ml BAG 1,000 ML IV ONE ×2 (06:15→07:12)
[2020-06-15 06:27] LABS: ALT 43 U/L (7-52); AST 69 U/L (13-39); Albumin 4.7 g/dL (3.2-5.2); Albumin/Globulin Ratio 1.5 (1-3); Alkaline Phosphatase 139 U/L (34-104); Amylase 41 U/L (29-103); Anion Gap 15 mmol/L (2-11); BUN/Creatinine Ratio 8.1 (8-20); Blood Urea Nitrogen 7 mg/dL (6-24); CO2 Carbon Dioxide 25 mmol/L (22-32); Calcium 9.8 mg/dL (8.6-10.3); Chloride 101 mmol/L (101-111); EGFR African American 94.4 (>60); Globulin 3.2 g/dL (2-4); Glucose 126 mg/dL (70-100); Lipase 25 U/L (11.0-82.0); Potassium 3.9 mmol/L (3.5-5.0); Sodium 141 mmol/L (135-145); Total Protein 7.9 g/dL (6.4-8.9)
[2020-06-15 06:35] LABS: HCG Pregnancy < 0.60 mIU/mL
[2020-06-15 06:52] LABS: Acetaminophen < 15 mcg/mL; Alcohol, S 51 mg/dL (<10); Salicylate < 2.50 mg/dL (<30)
[2020-06-15] MEDS ORDERED: Lactulose 30 ml UDC NG TUBE ONE (07:13)
[2020-06-15] MEDS ORDERED: Lorazepam PYXIS KEY PRN ×3 (07:43→08:29)
[2020-06-15] MEDS ORDERED: LORazepam 2 mg VIAL 1 ml IV PUSH ONE ×2 (07:43→08:11)
[2020-06-15 07:45] LABS: INR 1.02 (0.82-1.09)
[2020-06-15] MEDS ORDERED: Lorazepam PYXIS KEY ONE ×3 (07:46→08:32)
[2020-06-15] MEDS ORDERED: LORazepam 2 mg VIAL 1 ml ONE ×2 (08:12→08:34)
[2020-06-15] MEDS ORDERED: diPHENhydraMINE IV 50 MG/ML 1 ml VIAL (BENADRYL) IM ONE (08:20)
[2020-06-15] MEDS ORDERED: Haloperidol 5 mg/ml SDV IV/IM 5 MG/ML AMP IM ONE (08:20)
[2020-06-15] MEDS ORDERED: LORazepam 2 mg VIAL 1 ml IM ONE (08:29)
[2020-06-15] MEDS: Dexmedetomidine 1,000 MCG in NS 0.9% 250 ml 240 ML IV SCH ×2 (09:19→23:06)
[2020-06-15] MEDS: Enoxaparin 40 MG/0.4 ML SYR SUBCUT SCH ×2 (12:27→16:32)
[2020-06-15 14:08] LABS: Urine Appearance Clear; Urine Bilirubin Negative (Negative); Urine Blood Negative (Negative); Urine Color Yellow; Urine Glucose Negative (Negative); Urine Ketones Negative (Negative); Urine Nitrite Negative (Negative); Urine Protein 1+(30 mg/dL) (Negative); Urine Specific Gravity 1.012 (1.010-1.030); Urine Urobilinogen Negative (Negative)
[2020-06-15 14:42] LABS: Urine Bacteria Absent (Absent); Urine Red Blood Cell Absent (Absent); Urine White Blood Cell Trace(0-5/hpf) (Absent)
[2020-06-15] MEDS ORDERED: Lactated Ringers 1000 ml BAG 1,000 ML IV SCH (15:00)
[2020-06-15 15:42] LABS: Urine Benzodiazepine Screen None Detected (None Detect); Urine Cannabinoids Screen Presumptive Positive (None Detect); Urine Opiates Screen None Detected (None Detect)
[2020-06-15] MEDS ORDERED: Thiamine 100 MG/ML 2 ml VIAL 100 MG in NS 0.9% 50 ML 50 ML IV SCH (17:00)
[2020-06-15] MEDS: Pantoprazole VIAL 40 MG VIAL IV SCH (17:41)
[2020-06-15 18:53] LABS: Albumin 3.7 g/dL (3.2-5.2); Albumin/Globulin Ratio 1.5 (1-3); BUN/Creatinine Ratio 12.1 (8-20); Calcium 7.9 mg/dL (8.6-10.3); EGFR African American 128.1 (>60); EGFR Non-African American 105.9 (>60); Globulin 2.4 g/dL (2-4); Potassium 3.5 mmol/L (3.5-5.0); Total Bilirubin 0.4 mg/dL (0.2-1.0); Total Protein 6.1 g/dL (6.4-8.9)
[2020-06-15] MEDS: Thiamine 100 MG/ML 2 ml VIAL 500 MG in NS 0.9% 250 ml 250 ML IV SCH (21:52)
[2020-06-15] MEDS ORDERED: Thiamine 100 MG/ML 2 ml VIAL 500 MG in NS 0.9% 50 ML 50 ML IV SCH (22:00)
[2020-06-16] MEDS ORDERED: Buprenorp/Nalox 8-2 MG FILM SL FILM SCH ×2 (01:29→02:00)
[2020-06-16] MEDS: Lactated Ringers 1000 ml BAG 1,000 ML IV SCH ×3 (02:39→20:58)
[2020-06-16 05:06] LABS: ABS Eosinophils 0.1 10^3/ul (0-0.6); ABS Lymphocytes 1.7 10^3/ul (1.0-4.8); ABS Monocytes 0.3 10^3/ul (0-0.8); ABS Neutrophils 4.1 10^3/ul (1.5-7.7); Eosinophil % 1.1 %; Hematocrit 33 % (35-47); Hemoglobin 10.9 g/dL (12.0-16.0); Lymphocyte % 27.3 %; Mean Corpuscular HGB Conc 33 g/dL (31-36); Mean Corpuscular Hemoglobin 33 pg (27-31); Mean Corpuscular Volume 98 fL (80-97); Mean Platelet Volume 8.5 fL (7.4-10.4); Platelet Count 119 10^3/uL (150-450); Red Blood Count 3.31 10^6 /uL (3.70-4.87); Red Cell Distribution Width 14 % (10-15); White Blood Count 6.3 10^3/uL (3.5-10.8)
[2020-06-16 05:29] LABS: Albumin 3.4 g/dL (3.2-5.2); Albumin/Globulin Ratio 1.5 (1-3); BUN/Creatinine Ratio 8.9 (8-20); Calcium 7.1 mg/dL (8.6-10.3); EGFR African American 104.1 (>60); Globulin 2.3 g/dL (2-4); Potassium 3.2 mmol/L (3.5-5.0); Total Bilirubin 0.3 mg/dL (0.2-1.0); Total Protein 5.7 g/dL (6.4-8.9)
[2020-06-16] MEDS: Thiamine 100 MG/ML 2 ml VIAL 500 MG in NS 0.9% 250 ml 250 ML IV SCH ×2 (05:35→15:25)
[2020-06-16] MEDS: KCL 10 MEQ/50 ML IVPREMIX 10 MEQ/50 ML BAG IV SCH ×2 (06:01→07:58)
[2020-06-16 08:04] LABS: Magnesium 1.8 mg/dL (1.9-2.7); Phosphorus 1.4 mg/dL (2.5-5.0)
[2020-06-16] MEDS ORDERED: Magnesium Sulfate 2 gm BAG 2 GM/50 ML BAG IVPB ONE (09:21)
[2020-06-16] MEDS ORDERED: KCL 20 MEQ/100 ML IVPREMIX 20 MEQ/100 ML BAG IV ONE (09:25)
[2020-06-16] MEDS: Pantoprazole VIAL 40 MG VIAL IV SCH (09:27)
[2020-06-16] MEDS: Enoxaparin 40 MG/0.4 ML SYR SUBCUT SCH (09:27)
[2020-06-16] MEDS ORDERED: Multivitamins ADULT w/MIN LIQ 15 ML UDC PO ONE (09:31)
[2020-06-16] MEDS: Nicotine GUM 2MG FRUIT FLAVOR PO PRN ×6 (09:54→21:49)
[2020-06-16] MEDS ORDERED: Potassium Phosphate IV 10 MMOLE in NS 0.9% 250 ml 250 ML IVPB ONE ×2 (10:29→18:00)
[2020-06-16] MEDS ORDERED: Multivitamins/Minerals TAB ONE (10:40)
[2020-06-16] MEDS: Buprenorp/Nalox 8-2 MG FILM SL FILM SCH ×3 (10:50→20:57)
[2020-06-16] MEDS: Potassium & Sodium Phos 250 mg = 1 PACKET PO SCH ×3 (12:14→20:57)
[2020-06-16 16:45] LABS: BUN/Creatinine Ratio 6.3 (8-20); Calcium 7.6 mg/dL (8.6-10.3); EGFR African American 104.1 (>60); Magnesium 2.6 mg/dL (1.9-2.7); Phosphorus 1.9 mg/dL (2.5-5.0); Potassium 3.5 mmol/L (3.5-5.0)
[2020-06-16] MEDS ORDERED: Potassium Chloride LIQUID 20 MEQ/15 ML LIQUID PO ONE (16:48)
[2020-06-16] MEDS ORDERED: Potassium & Sodium Phos 250 mg = 1 PACKET PO ONE (16:52)
[2020-06-16] MEDS: Multivitamins/Minerals TAB PO SCH (17:07)
[2020-06-17] MEDS: Nicotine GUM 2MG FRUIT FLAVOR PO PRN ×7 (01:46→22:22)
[2020-06-17] MEDS: Lactated Ringers 1000 ml BAG 1,000 ML IV SCH (05:24)
[2020-06-17] MEDS: Multivitamins/Minerals TAB PO SCH (09:27)
[2020-06-17] MEDS: Buprenorp/Nalox 8-2 MG FILM SL FILM SCH ×3 (09:28→20:32)
[2020-06-17] MEDS: Potassium & Sodium Phos 250 mg = 1 PACKET PO SCH ×4 (09:29→20:32)
[2020-06-17] MEDS: Enoxaparin 40 MG/0.4 ML SYR SUBCUT SCH (09:50)
[2020-06-17] MEDS ORDERED: Calcium Gluconate 2 GM in NS 0.9% 100 ml BAG 100 ML IV ONE (10:15)
[2020-06-17] MEDS: Ondansetron 4 mg VIAL 2 MG/ML 2 ml VIAL IV PRN ×2 (10:22→20:41)
[2020-06-17 16:04] LABS: ABS Eosinophils 0.1 10^3/ul (0-0.6); ABS Lymphocytes 1.6 10^3/ul (1.0-4.8); ABS Monocytes 0.3 10^3/ul (0-0.8); ABS Neutrophils 3.4 10^3/ul (1.5-7.7); Eosinophil % 1.8 %; Hematocrit 37 % (35-47); Hemoglobin 12.2 g/dL (12.0-16.0); Lymphocyte % 29.1 %; Mean Corpuscular HGB Conc 34 g/dL (31-36); Mean Corpuscular Hemoglobin 33 pg (27-31); Mean Corpuscular Volume 99 fL (80-97); Mean Platelet Volume 8.1 fL (7.4-10.4); Platelet Count 168 10^3/uL (150-450); Red Blood Count 3.71 10^6 /uL (3.70-4.87); Red Cell Distribution Width 15 % (10-15); White Blood Count 5.4 10^3/uL (3.5-10.8)
[2020-06-17 16:21] LABS: Albumin 4.4 g/dL (3.2-5.2); Albumin/Globulin Ratio 1.5 (1-3); BUN/Creatinine Ratio 6.4 (8-20); Calcium 9.5 mg/dL (8.6-10.3); EGFR African American 105.7 (>60); EGFR Non-African American 87.3 (>60); Potassium 4.5 mmol/L (3.5-5.0); Total Bilirubin 0.2 mg/dL (0.2-1.0); Total Protein 7.4 g/dL (6.4-8.9)
[2020-06-17 17:34] LABS: Magnesium 2.3 mg/dL (1.9-2.7); Phosphorus 4.3 mg/dL (2.5-5.0)
[2020-06-18] MEDS: Ondansetron 4 mg VIAL 2 MG/ML 2 ml VIAL IV PRN ×2 (00:33→10:15)
[2020-06-18] MEDS: Nicotine GUM 2MG FRUIT FLAVOR PO PRN ×6 (00:36→20:53)
[2020-06-18 09:26] LABS: ABS Eosinophils 0.1 10^3/ul (0-0.6); ABS Lymphocytes 1.6 10^3/ul (1.0-4.8); ABS Monocytes 0.4 10^3/ul (0-0.8); ABS Neutrophils 2.8 10^3/ul (1.5-7.7); Eosinophil % 2.2 %; Hematocrit 39 % (35-47); Hemoglobin 13.1 g/dL (12.0-16.0); Lymphocyte % 32.9 %; Mean Corpuscular HGB Conc 34 g/dL (31-36); Mean Corpuscular Hemoglobin 33 pg (27-31); Mean Corpuscular Volume 98 fL (80-97); Platelet Count 169 10^3/uL (150-450); Red Blood Count 3.96 10^6 /uL (3.70-4.87); Red Cell Distribution Width 14 % (10-15); White Blood Count 4.9 10^3/uL (3.5-10.8)
[2020-06-18 09:42] LABS: Albumin 4.4 g/dL (3.2-5.2); Albumin/Globulin Ratio 1.5 (1-3); BUN/Creatinine Ratio 10.5 (8-20); Calcium 10.3 mg/dL (8.6-10.3); EGFR African American 108.9 (>60); Globulin 2.9 g/dL (2-4); Potassium 4.5 mmol/L (3.5-5.0); Total Bilirubin 0.3 mg/dL (0.2-1.0); Total Protein 7.3 g/dL (6.4-8.9)
[2020-06-18] MEDS: Multivitamins/Minerals TAB PO SCH (10:14)
[2020-06-18] MEDS: Buprenorp/Nalox 8-2 MG FILM SL FILM SCH ×3 (10:14→20:45)
[2020-06-18] MEDS: Cholecalciferol (VIT D3) 1,000 unit TAB PO SCH (10:15)
[2020-06-18] MEDS: Enoxaparin 40 MG/0.4 ML SYR SUBCUT SCH (10:16)
[2020-06-18] MEDS: Potassium & Sodium Phos 250 mg = 1 PACKET PO SCH (10:26)
[2020-06-19] MEDS: Nicotine GUM 2MG FRUIT FLAVOR PO PRN ×2 (02:30→08:57)
[2020-06-19] MEDS: Ondansetron 4 mg VIAL 2 MG/ML 2 ml VIAL IV PRN ×2 (02:40→09:11)
[2020-06-19] MEDS: Cholecalciferol (VIT D3) 1,000 unit TAB PO SCH (08:55)
[2020-06-19] MEDS: Buprenorp/Nalox 8-2 MG FILM SL FILM SCH (08:55)
[2020-06-19] MEDS: Multivitamins/Minerals TAB PO SCH (08:55)
[2020-06-19 09:01] VITALS: BP 97/67
[2020-06-19] MEDS: Enoxaparin 40 MG/0.4 ML SYR SUBCUT SCH (09:11)
[2020-06-19 09:53] LABS: ABS Eosinophils 0.1 10^3/ul (0-0.6); ABS Lymphocytes 1.6 10^3/ul (1.0-4.8); ABS Monocytes 0.6 10^3/ul (0-0.8); ABS Neutrophils 5.5 10^3/ul (1.5-7.7); Eosinophil % 1.5 %; Hematocrit 42 % (35-47); Hemoglobin 14.1 g/dL (12.0-16.0); Lymphocyte % 20.8 %; Mean Corpuscular HGB Conc 34 g/dL (31-36); Mean Corpuscular Hemoglobin 33 pg (27-31); Mean Corpuscular Volume 98 fL (80-97); Mean Platelet Volume 7.9 fL (7.4-10.4); Platelet Count 200 10^3/uL (150-450); Red Blood Count 4.27 10^6 /uL (3.70-4.87); Red Cell Distribution Width 14 % (10-15); White Blood Count 7.9 10^3/uL (3.5-10.8)
[2020-06-19 10:07] LABS: Albumin 4.7 g/dL (3.2-5.2); Albumin/Globulin Ratio 1.4 (1-3); BUN/Creatinine Ratio 12.4 (8-20); Calcium 10.6 mg/dL (8.6-10.3); EGFR African American 82.2 (>60); EGFR Non-African American 67.9 (>60); Globulin 3.4 g/dL (2-4); Phosphorus 5.4 mg/dL (2.5-5.0); Potassium 4.2 mmol/L (3.5-5.0); Total Bilirubin 0.3 mg/dL (0.2-1.0); Total Protein 8.1 g/dL (6.4-8.9)
[2020-06-22 20:12] LABS: Buprenorphine 79.1 ng/mL; Norbuprenorphine 296.9 ng/mL
== END 2020-06-19 12:41 | disposition home or self-care (01) | DRG 773 ==
LOC: ED 05:18 → ICU 08:57 → MEDTELE 06-16 18:22
PROVIDERS: ADMIT Internal Medicine; ATTEND Internal Medicine

== ENCOUNTER 2021-03-02 13:07 | Observation (INO) ==
[2021-03-02] MEDS ORDERED: NS 0.9% 1000 ml BAG 1,000 ML IV ONE ×2 (13:47→16:04)
[2021-03-02 14:44] LABS: ABS Eosinophils 0.1 10^3/ul (0-0.6); ABS Lymphocytes 1.1 10^3/ul (1.0-4.8); ABS Monocytes 0.2 10^3/ul (0-0.8); Hematocrit 41 % (35-47); Hemoglobin 14.2 g/dL (12.0-16.0); Lymphocyte % 20.7 %; Mean Corpuscular HGB Conc 35 g/dL (31-36); Mean Corpuscular Hemoglobin 35 pg (27-31); Mean Corpuscular Volume 99 fL (80-97); Mean Platelet Volume 8.4 fL (7.4-10.4); Platelet Count 173 10^3/uL (150-450); Red Blood Count 4.09 10^6 /uL (3.70-4.87); Red Cell Distribution Width 14 % (10-15); White Blood Count 5.4 10^3/uL (3.5-10.8)
[2021-03-02 15:04] LABS: Albumin 4.6 g/dL (3.2-5.2); Albumin/Globulin Ratio 1.5 (1-3); C Reactive Protein 5.19 mg/L (<8.01); Calcium 11.3 mg/dL (8.6-10.3); EGFR African American 112.3 (>60); EGFR Non-African American 92.8 (>60); Globulin 3.1 g/dL (2-4); Magnesium 1.8 mg/dL (1.9-2.7); Potassium 2.9 mmol/L (3.5-5.0); Total Bilirubin 0.3 mg/dL (0.2-1.0); Total Protein 7.7 g/dL (6.4-8.9)
[2021-03-02] MEDS ORDERED: Potassium Chlor 20 meq TAB.ER PO ONE ×2 (15:34→15:36)
[2021-03-02] MEDS ORDERED: Magnesium Sulfate 2 gm BAG 2 GM/50 ML BAG IVPB ONE (15:35)
[2021-03-02] MEDS ORDERED: Al Hydrox/Mg Hydrox/Simet LIQ 30 ML UDC PO ONE (15:36)
[2021-03-02] MEDS ORDERED: Famotidine IV 10 MG/ML 2 ml VIAL (20 mg) IV SLOW PU ONE (15:36)
[2021-03-02] MEDS ORDERED: LORazepam 2 mg VIAL 1 ml IV PUSH ONE (17:28)
[2021-03-02] MEDS ORDERED: Lorazepam PYXIS KEY PRN (17:28)
[2021-03-02 19:40] LABS: Urine Benzodiazepine Screen None Detected (None Detect); Urine Cannabinoids Screen Presumptive Positive (None Detect); Urine Opiates Screen None Detected (None Detect)
[2021-03-02] MEDS ORDERED: Thiamine 100 MG/ML 2 ml VIAL (200 mg) IM ONE (23:01)
[2021-03-02] MEDS ORDERED: LORazepam 2 mg VIAL 1 ml IM SCH (23:45)
[2021-03-03] MEDS: Buprenorp/Nalox 8-2 MG FILM SL FILM SCH ×3 (00:40→13:19)
[2021-03-03] MEDS: Nicotine PATCH 14 MG/24 HR PATCH TRANSDERM SCH ×2 (03:07→09:01)
[2021-03-03 06:36] LABS: Albumin 3.5 g/dL (3.2-5.2); Albumin/Globulin Ratio 1.5 (1-3); EGFR African American 137.7 (>60); EGFR Non-African American 113.8 (>60); Globulin 2.3 g/dL (2-4); Total Bilirubin 0.3 mg/dL (0.2-1.0); Total Protein 5.8 g/dL (6.4-8.9)
[2021-03-03] MEDS ORDERED: Multivitamins/Minerals TAB PO SCH ×2 (09:00)
[2021-03-03] MEDS ORDERED: Cholecalciferol (VIT D3) 1,000 unit TAB PO SCH (09:00)
[2021-03-03] MEDS: Nicotine GUM 2MG FRUIT FLAVOR PO PRN ×2 (09:52→13:19)
[2021-03-03 20:07] VITALS: BP 137/80
== END 2021-03-04 04:28 | disposition left against medical advice (07) ==
LOC: ED 13:07 → MEDTELE 13:07
PROVIDERS: ADMIT Hospitalist; ATTEND Hospitalist

== ENCOUNTER 2022-06-05 10:58 | Observation (INO) ==
[2022-06-05 11:50] LABS: ABS Lymphocytes 0.7 10^3/ul (1.0-4.8); ABS Monocytes 0.2 10^3/ul (0-0.8); ABS Neutrophils 2.9 10^3/ul (1.5-7.7); Eosinophil % 0.1 %; Hematocrit 43 % (35-47); Hemoglobin 14.3 g/dL (12.0-16.0); Lymphocyte % 19.2 %; Mean Corpuscular HGB Conc 33 g/dL (31-36); Mean Corpuscular Hemoglobin 33 pg (27-31); Mean Corpuscular Volume 101 fL (80-97); Mean Platelet Volume 7.7 fL (7.4-10.4); Nucleated Red Blood Cells % 0.2; Platelet Count 191 10^3/uL (150-450); Red Blood Count 4.31 10^6 /uL (3.70-4.87); Red Cell Distribution Width 17 % (10-15); White Blood Count 3.8 10^3/uL (3.5-10.8)
[2022-06-05] MEDS ORDERED: Lactated Ringers 1000 ml BAG 1,000 ML IV ONE (12:20)
[2022-06-05] MEDS ORDERED: LORazepam 2 mg VIAL 1 ml IV PUSH ONE ×2 (12:44→13:21)
[2022-06-05] MEDS ORDERED: Lorazepam PYXIS KEY PRN ×2 (12:44→13:21)
[2022-06-05] MEDS ORDERED: LORazepam 2 mg VIAL 1 ml ONE (12:45)
[2022-06-05 12:48] LABS: ALT 26 U/L (7-52); AST 65 U/L (13-39); Acetaminophen < 15 mcg/mL; Albumin 4.5 g/dL (3.2-5.2); Albumin/Globulin Ratio 1.6 (1-3); Alcohol, S 57 mg/dL (<13); Alkaline Phosphatase 213 U/L (35-149); Anion Gap 14 mmol/L (2-11); Blood Urea Nitrogen 7 mg/dL (6-24); CO2 Carbon Dioxide 22 mmol/L (22-32); Calcium 9.6 mg/dL (8.6-10.3); Chloride 103 mmol/L (101-111); Globulin 2.8 g/dL (2-4); Glucose 115 mg/dL (70-100); Salicylate < 2.50 mg/dL (<30); Sodium 139 mmol/L (135-145); Total Protein 7.3 g/dL (6.4-8.9); eGFR CKD-EPI 109.1 (>60)
[2022-06-05 12:55] LABS: HCG Pregnancy < 0.60 mIU/mL
[2022-06-05] MEDS ORDERED: LORazepam 2 mg VIAL 1 ml IV PUSH SCH (16:00)
[2022-06-05 17:14] LABS: Creatine Kinase 66 U/L (10-223)
[2022-06-05 17:47] LABS: Magnesium 1.5 mg/dL (1.9-2.7)
[2022-06-05] MEDS: Multivitamins/Minerals TAB PO SCH (18:14)
[2022-06-05] MEDS: Thiamine 100 MG/ML 2 ml VIAL 500 MG in NS 0.9% 50 ML 50 ML IV SCH ×2 (18:31→23:32)
[2022-06-05] MEDS: Lactated Ringers 1000 ml BAG 1,000 ML IV SCH (19:41)
[2022-06-05 19:58] LABS: Albumin 3.7 g/dL (3.2-5.2); Albumin/Globulin Ratio 1.7 (1-3); Calcium 8.7 mg/dL (8.6-10.3); Globulin 2.2 g/dL (2-4); Potassium 3.5 mmol/L (3.5-5.0); Total Bilirubin 0.5 mg/dL (0.2-1.0); Total Protein 5.9 g/dL (6.4-8.9); eGFR CKD-EPI 118.5 (>60)
[2022-06-05 20:13] LABS: TSH Ultra Thyroid Stim Horm 1.98 mcIU/mL (0.34-5.60)
[2022-06-05 23:36] LABS: Urine Appearance Cloudy; Urine Bilirubin Negative (Negative); Urine Blood 1+ (Negative); Urine Color Amber; Urine Glucose Negative (Negative); Urine Ketones Negative (Negative); Urine Nitrite Negative (Negative); Urine Protein Negative (Negative); Urine Urobilinogen Negative (Negative)
[2022-06-05] MEDS ORDERED: Buprenorp/Nalox 8-2 MG FILM SL FILM ONE (23:57)
[2022-06-06 00:42] LABS: Urine White Blood Cell Trace(0-5/hpf) (Absent)
[2022-06-06 00:43] LABS: Urine Bacteria 1+ (Absent); Urine Red Blood Cell Trace(0-2/hpf) (Absent); Urine Squamous Epithelial Cell Present (Absent)
[2022-06-06] MEDS ORDERED: Buprenorp/Nalox 8-2 MG FILM SL FILM PRN (02:10)
[2022-06-06 02:46] LABS: Magnesium 1.3 mg/dL (1.9-2.7)
[2022-06-06] MEDS: Lactated Ringers 1000 ml BAG 1,000 ML IV SCH ×2 (02:57→09:52)
[2022-06-06 03:06] LABS: ABS Lymphocytes 1.2 10^3/ul (1.0-4.8); ABS Monocytes 0.4 10^3/ul (0-0.8); ABS Neutrophils 5.4 10^3/ul (1.5-7.7); Eosinophil % 0.5 %; Hematocrit 37 % (35-47); Hemoglobin 12.1 g/dL (12.0-16.0); Lymphocyte % 17.3 %; Mean Corpuscular HGB Conc 33 g/dL (31-36); Mean Corpuscular Hemoglobin 33 pg (27-31); Mean Corpuscular Volume 101 fL (80-97); Platelet Count 142 10^3/uL (150-450); Red Blood Count 3.66 10^6 /uL (3.70-4.87); Red Cell Distribution Width 17 % (10-15)
[2022-06-06] MEDS ORDERED: Magnesium Sulf 4 GM/100 ML IV 4,000 MG/100 ML BAG IVPB ONE (03:36)
[2022-06-06] MEDS: Nicotine GUM 4MG FRUIT FLAVOR PO PRN ×4 (04:17→20:57)
[2022-06-06] MEDS: Multivitamins/Minerals TAB PO SCH (07:56)
[2022-06-06] MEDS: Thiamine 100 MG/ML 2 ml VIAL 500 MG in NS 0.9% 50 ML 50 ML IV SCH (07:57)
[2022-06-06] MEDS ORDERED: Magnesium Sulfate IV 3 GM in NS 0.9% 100 ml BAG 100 ML IVPB ONE (09:00)
[2022-06-06 09:25] LABS: CO2 Carbon Dioxide 21 mmol/L (22-32); Calcium 8.9 mg/dL (8.6-10.3); Chloride 103 mmol/L (101-111); Magnesium 2.8 mg/dL (1.9-2.7); Sodium 137 mmol/L (135-145)
[2022-06-06 09:31] LABS: Blood Urea Nitrogen 5 mg/dL (6-24); Glucose 98 mg/dL (70-100); eGFR CKD-EPI 92.6 (>60)
[2022-06-06 09:38] LABS: Urine Benzodiazepine Screen None Detected (None Detect); Urine Cannabinoids Screen None Detected (None Detect); Urine Opiates Screen None Detected (None Detect)
[2022-06-06 09:49] LABS: Anion Gap 13 mmol/L (2-11)
[2022-06-06] MEDS: Buprenorp/Nalox 8-2 MG FILM SL FILM SCH ×3 (09:53→20:57)
[2022-06-06] MEDS ORDERED: Buprenorp/Nalox 8-2 MG FILM SL FILM SCH (10:00)
[2022-06-06] MEDS: Thiamine 100 MG/ML 2 ml VIAL 500 MG in NS 0.9% 250 ml 250 ML IV SCH ×2 (16:20→23:46)
[2022-06-07] MEDS ORDERED: Ondansetron 4 mg VIAL 2 MG/ML 2 ml VIAL IV PRN (00:29)
[2022-06-07] MEDS: Nicotine GUM 4MG FRUIT FLAVOR PO PRN ×2 (05:42→08:41)
[2022-06-07] MEDS: Thiamine 100 MG/ML 2 ml VIAL 500 MG in NS 0.9% 250 ml 250 ML IV SCH (08:39)
[2022-06-07] MEDS: Multivitamins/Minerals TAB PO SCH (08:40)
[2022-06-07] MEDS: Buprenorp/Nalox 8-2 MG FILM SL FILM SCH (08:40)
[2022-06-07 08:47] LABS: ABS Eosinophils 0.1 10^3/ul (0-0.6); ABS Lymphocytes 1.7 10^3/ul (1.0-4.8); ABS Monocytes 0.3 10^3/ul (0-0.8); ABS Neutrophils 2.8 10^3/ul (1.5-7.7); Eosinophil % 2.1 %; Hematocrit 39 % (35-47); Hemoglobin 12.7 g/dL (12.0-16.0); Mean Corpuscular HGB Conc 32 g/dL (31-36); Mean Corpuscular Hemoglobin 33 pg (27-31); Mean Corpuscular Volume 103 fL (80-97); Mean Platelet Volume 8.4 fL (7.4-10.4); Platelet Count 151 10^3/uL (150-450); Red Blood Count 3.81 10^6 /uL (3.70-4.87); Red Cell Distribution Width 17 % (10-15)
[2022-06-07 09:34] LABS: Calcium 9.2 mg/dL (8.6-10.3); Potassium 4.1 mmol/L (3.5-5.0); eGFR CKD-EPI 119.3 (>60)
[2022-06-07 11:47] VITALS: BP 107/73
== END 2022-06-07 02:07 | disposition home or self-care (01) ==
LOC: ED 10:58 → EDHOLD 10:58 → SUATTDRO 14:37 → EDHOLD 17:49 → MED 18:31 → UNDODISOB 06-07 13:05
PROVIDERS: ADMIT Internal Medicine; ATTEND Internal Medicine

== ENCOUNTER 2022-08-16 08:35 | Inpatient (IN) ==
[2022-08-16] MEDS ORDERED: Metoclopramide 5 MG/ML VIAL (10 mg) IV ONE (12:18)
[2022-08-16] MEDS ORDERED: Acetaminophen IV 1 GM/100ML 1,000 MG/100 ML BAG IV ONE (12:29)
[2022-08-16] MEDS ORDERED: NS 0.9% 1000 ml BAG 1,000 ML IV ONE (12:30)
[2022-08-16] MEDS ORDERED: Famotidine IV 10 MG/ML 2 ml VIAL (20 mg) IV SLOW PU ONE (12:30)
[2022-08-16 13:12] LABS: ABS Lymphocytes 1.1 10^3/ul (1.0-4.8); ABS Monocytes 0.2 10^3/ul (0-0.8); ABS Neutrophils 1.9 10^3/ul (1.5-7.7); Eosinophil % 1.5 %; Hematocrit 44 % (35-47); Hemoglobin 14.5 g/dL (12.0-16.0); Lymphocyte % 34.4 %; Mean Corpuscular HGB Conc 33 g/dL (31-36); Mean Corpuscular Hemoglobin 34 pg (27-31); Mean Corpuscular Volume 102 fL (80-97); Mean Platelet Volume 7.6 fL (7.4-10.4); Nucleated Red Blood Cells % 0.1; Platelet Count 99 10^3/uL (150-450); Red Blood Count 4.32 10^6 /uL (3.70-4.87); Red Cell Distribution Width 16 % (10-15); White Blood Count 3.3 10^3/uL (3.5-10.8)
[2022-08-16 13:45] LABS: ALT 59 U/L (7-52); AST 332 U/L (13-39); Albumin 4.1 g/dL (3.2-5.2); Albumin/Globulin Ratio 1.5 (1-3); Alkaline Phosphatase 329 U/L (35-149); Anion Gap 14 mmol/L (2-11); Blood Urea Nitrogen 13 mg/dL (6-24); CO2 Carbon Dioxide 29 mmol/L (22-32); Calcium 10.1 mg/dL (8.6-10.3); Chloride 95 mmol/L (101-111); Globulin 2.7 g/dL (2-4); Glucose 79 mg/dL (70-100); Lipase 88 U/L (11.0-82.0); Magnesium 1.5 mg/dL (1.9-2.7); Potassium 4.1 mmol/L (3.5-5.0); Sodium 138 mmol/L (135-145); Total Protein 6.8 g/dL (6.4-8.9); eGFR CKD-EPI 121.6 (>60)
[2022-08-16 13:51] LABS: HCG Pregnancy < 0.60 mIU/mL
[2022-08-16] MEDS ORDERED: Iohexol 350 (CONTRAST) 500 ML MDV IV ONE (13:51)
[2022-08-16 13:59] LABS: TSH Ultra Thyroid Stim Horm 5.85 mcIU/mL (0.34-5.60)
[2022-08-16 14:07] LABS: Rapid Strep Molecular Negative (Negative)
[2022-08-16] MEDS ORDERED: Magnesium Sulfate 2 gm BAG 2 GM/50 ML BAG IVPB ONE (14:43)
[2022-08-16] MEDS ORDERED: Morphine 4 MG/ML VIAL (1 ml) IV ONE (14:43)
[2022-08-16] MEDS ORDERED: Thiamine 100 MG/ML 2 ml VIAL 100 MG, Folic Acid IV 1 MG, Multiple Vitamin IV ADULT 10 M... IV ONE (14:44)
[2022-08-16 14:48] LABS: Alcohol, S 133 mg/dL (<13)
[2022-08-16] MEDS ORDERED: Ondansetron ODT 4 mg TAB 4 MG TAB PO PRN (16:58)
[2022-08-16] MEDS ORDERED: Lorazepam PYXIS KEY PRN (17:07)
[2022-08-16] MEDS ORDERED: LORazepam 2 mg VIAL 1 ml IV PUSH PRN (17:07)
[2022-08-16] MEDS ORDERED: LORazepam 2 mg VIAL 1 ml IV PUSH SCH ×2 (18:00)
[2022-08-16 18:06] LABS: INR 1.07 (0.88-1.18)
[2022-08-16] MEDS ORDERED: Metoclopramide 5 MG/ML VIAL (10 mg) IV PRN (18:28)
[2022-08-16] MEDS: Morphine 2 MG/ML SYRINGE IV PRN ×3 (18:29→23:29)
[2022-08-16 19:09] LABS: Rubella Screen IgG Immune (Immune)
[2022-08-16 19:42] LABS: Urine Appearance Turbid; Urine Bilirubin Negative (Negative); Urine Blood 2+ (Negative); Urine Color Yellow; Urine Glucose Negative (Negative); Urine Ketones Trace (Negative); Urine Nitrite Positive (Negative); Urine Protein 2+(100 mg/dL) (Negative); Urine Specific Gravity 1.059 (1.002-1.030); Urine Urobilinogen Negative (Negative)
[2022-08-16 19:48] LABS: Urine Bacteria Absent (Absent); Urine Red Blood Cell 1+(3-5/hpf) (Absent); Urine Squamous Epithelial Cell Present (Absent); Urine White Blood Cell 3+(>20/hpf) (Absent)
[2022-08-16] MEDS: Enoxaparin 40 MG/0.4 ML SYR SUBCUT SCH (20:04)
[2022-08-16] MEDS: Buprenorp/Nalox 8-2 MG FILM SL FILM SCH (20:04)
[2022-08-16] MEDS: Calamine LOTION BTL TOPICAL SCH (21:15)
[2022-08-16] MEDS: Lactated Ringers 1000 ml BAG 1,000 ML IV SCH (22:39)
[2022-08-17] MEDS: Morphine 2 MG/ML SYRINGE IV PRN ×3 (02:44→08:06)
[2022-08-17] MEDS: Lactated Ringers 1000 ml BAG 1,000 ML IV SCH (04:24)
[2022-08-17 06:21] LABS: ABS Lymphocytes 0.6 10^3/ul (1.0-4.8); ABS Monocytes 0.3 10^3/ul (0-0.8); ABS Neutrophils 2.3 10^3/ul (1.5-7.7); Eosinophil % 0.6 %; Hematocrit 39 % (35-47); Hemoglobin 13.2 g/dL (12.0-16.0); Lymphocyte % 18.9 %; Mean Corpuscular HGB Conc 34 g/dL (31-36); Mean Corpuscular Hemoglobin 35 pg (27-31); Mean Corpuscular Volume 102 fL (80-97); Mean Platelet Volume 7.8 fL (7.4-10.4); Nucleated Red Blood Cells % 0.1; Platelet Count 67 10^3/uL (150-450); Red Cell Distribution Width 16 % (10-15); White Blood Count 3.3 10^3/uL (3.5-10.8)
[2022-08-17 06:51] LABS: Albumin 3.5 g/dL (3.2-5.2); Albumin/Globulin Ratio 1.7 (1-3); Calcium 7.7 mg/dL (8.6-10.3); Globulin 2.1 g/dL (2-4); Magnesium 1.4 mg/dL (1.9-2.7); Phosphorus 2.8 mg/dL (2.5-5.0); Potassium 3.9 mmol/L (3.5-5.0); Total Bilirubin 1.5 mg/dL (0.2-1.0); Total Protein 5.6 g/dL (6.4-8.9); eGFR CKD-EPI 126.2 (>60)
[2022-08-17] MEDS ORDERED: Magnesium Sulf 4 GM/100 ML IV 4,000 MG/100 ML BAG IVPB ONE (07:30)
[2022-08-17] MEDS: Buprenorp/Nalox 8-2 MG FILM SL FILM SCH ×3 (08:06→20:44)
[2022-08-17] MEDS: Multivitamins/Minerals TAB PO SCH (08:07)
[2022-08-17] MEDS: Cholecalciferol (VIT D3) 1,000 unit TAB PO SCH (08:07)
[2022-08-17] MEDS ORDERED: Lactated Ringers 1000 ml BAG 1,000 ML IV SCH (08:58)
[2022-08-17 09:17] LABS: Direct Bilirubin 0.6 mg/dL (0.03-0.18); Indirect Bilirubin 0.9 mg/dL (0.3-1.0)
[2022-08-17] MEDS: Nicotine GUM 2MG FRUIT FLAVOR PO PRN ×4 (09:31→20:53)
[2022-08-17 09:39] LABS: INR 0.98 (0.88-1.18)
[2022-08-17] MEDS: cefTRIAXone 1 gm/50 mL D5W 1 GM/50 ML BAG IV SCH (10:34)
[2022-08-17] MEDS: Triamcinolone 0.025% OINT 15 GM TUBE TOPICAL SCH ×2 (11:24→20:59)
[2022-08-17] MEDS: Mupirocin 2% OINT TUBE TOPICAL SCH ×2 (11:24→20:59)
[2022-08-17] MEDS: Calamine LOTION BTL TOPICAL SCH ×3 (11:24→21:03)
[2022-08-17] MEDS: Enoxaparin 40 MG/0.4 ML SYR SUBCUT SCH (18:21)
[2022-08-18 06:16] LABS: ABS Eosinophils 0.1 10^3/ul (0-0.6); ABS Lymphocytes 0.8 10^3/ul (1.0-4.8); ABS Monocytes 0.2 10^3/ul (0-0.8); Eosinophil % 2.5 %; Hematocrit 41 % (35-47); Hemoglobin 13.4 g/dL (12.0-16.0); Lymphocyte % 39.2 %; Mean Corpuscular HGB Conc 33 g/dL (31-36); Mean Corpuscular Hemoglobin 34 pg (27-31); Mean Corpuscular Volume 103 fL (80-97); Mean Platelet Volume 8.4 fL (7.4-10.4); Nucleated Red Blood Cells % 0.2; Platelet Count 52 10^3/uL (150-450); Red Blood Count 3.99 10^6 /uL (3.70-4.87); Red Cell Distribution Width 16 % (10-15); White Blood Count 2.1 10^3/uL (3.5-10.8)
[2022-08-18 06:26] LABS: Calcium 7.8 mg/dL (8.6-10.3)
[2022-08-18 06:32] LABS: eGFR CKD-EPI 127.9 (>60)
[2022-08-18] MEDS: Buprenorp/Nalox 8-2 MG FILM SL FILM SCH ×3 (08:38→19:56)
[2022-08-18] MEDS: Multivitamins/Minerals TAB PO SCH (08:40)
[2022-08-18] MEDS: Cholecalciferol (VIT D3) 1,000 unit TAB PO SCH (08:41)
[2022-08-18] MEDS: cefTRIAXone 1 gm/50 mL D5W 1 GM/50 ML BAG IV SCH (08:42)
[2022-08-18] MEDS: Calamine LOTION BTL TOPICAL SCH ×3 (08:52→21:15)
[2022-08-18] MEDS: Mupirocin 2% OINT TUBE TOPICAL SCH ×2 (08:52→21:14)
[2022-08-18] MEDS: Triamcinolone 0.025% OINT 15 GM TUBE TOPICAL SCH ×2 (08:52→21:13)
[2022-08-18] MEDS: Nicotine GUM 2MG FRUIT FLAVOR PO PRN (10:46)
[2022-08-18 11:19] LABS: Total Bilirubin 0.7 mg/dL (0.2-1.0)
[2022-08-18 17:10] LABS: Zinc, S 48 mcg/dL (60-106)
[2022-08-18] MEDS ORDERED: Enoxaparin 40 MG/0.4 ML SYR SUBCUT SCH (19:00)
[2022-08-19 07:31] LABS: INR 0.91 (0.88-1.18)
[2022-08-19 07:41] LABS: Albumin 3.7 g/dL (3.2-5.2); Albumin/Globulin Ratio 1.7 (1-3); Calcium 8.9 mg/dL (8.6-10.3); Globulin 2.2 g/dL (2-4); Magnesium 1.9 mg/dL (1.9-2.7); Potassium 4.3 mmol/L (3.5-5.0); Total Bilirubin 0.6 mg/dL (0.2-1.0); Total Protein 5.9 g/dL (6.4-8.9); eGFR CKD-EPI 128.5 (>60)
[2022-08-19] MEDS ORDERED: Magnesium Sulfate IV 1GM/100ML 1 GM/100 ML BAG IV ONE (07:46)
[2022-08-19 07:52] LABS: Hematocrit 41 % (35-47); Hemoglobin 13.5 g/dL (12.0-16.0); Mean Corpuscular HGB Conc 33 g/dL (31-36); Mean Corpuscular Hemoglobin 34 pg (27-31); Mean Corpuscular Volume 105 fL (80-97); Red Blood Count 3.97 10^6 /uL (3.70-4.87); Red Cell Distribution Width 16 % (10-15); White Blood Count 2.8 10^3/uL (3.5-10.8)
[2022-08-19 08:32] LABS: ABS Eosinophils 0.1 10^3/ul (0-0.6); ABS Lymphocytes 1.1 10^3/ul (1.0-4.8); ABS Monocytes 0.2 10^3/ul (0-0.8); ABS Neutrophils 1.4 10^3/ul (1.5-7.7); Eosinophil % 2.3 %; Mean Platelet Volume 9.2 fL (7.4-10.4); Nucleated Red Blood Cells % 0.2; Platelet Count 63 10^3/uL (150-450)
[2022-08-19] MEDS: Cholecalciferol (VIT D3) 1,000 unit TAB PO SCH (09:51)
[2022-08-19] MEDS: Buprenorp/Nalox 8-2 MG FILM SL FILM SCH ×2 (09:52→14:31)
[2022-08-19] MEDS: Multivitamins/Minerals TAB PO SCH (09:53)
[2022-08-19] MEDS: Mupirocin 2% OINT TUBE TOPICAL SCH (09:54)
[2022-08-19] MEDS: Triamcinolone 0.025% OINT 15 GM TUBE TOPICAL SCH (09:54)
[2022-08-19] MEDS: Calamine LOTION BTL TOPICAL SCH ×2 (09:55→14:42)
[2022-08-19] MEDS: cefTRIAXone 1 gm/50 mL D5W 1 GM/50 ML BAG IV SCH (11:34)
[2022-08-19] MEDS: Nicotine GUM 2MG FRUIT FLAVOR PO PRN ×2 (11:34→16:29)
[2022-08-19 15:04] VITALS: BP 114/72
== END 2022-08-19 17:35 | disposition home or self-care (01) | DRG 282 ==
LOC: ED 08:35 → EDHOLD 14:50 → SUATTDRO 14:50 → EDHOLD 17:21 → MEDTELE 17:35
PROVIDERS: ADMIT Internal Medicine; ATTEND Internal Medicine

== ENCOUNTER 2024-01-07 23:54 | Observation (INO) ==
[2024-01-08] MEDS: Lactated Ringers 1000 ml BAG 1,000 ML IV ONE ×3 (00:25→20:56)
[2024-01-08] MEDS: diazePAM INJ CARPUJECT 5 MG/ML SYRINGE IV ONE (00:25)
[2024-01-08] MEDS: Ondansetron 4 mg VIAL 2 MG/ML 2 ml VIAL IV ONE (00:27)
[2024-01-08 00:33] LABS: ABS Lymphocytes 1.1 10^3/uL (1.0-4.8); ABS Monocytes 0.5 10^3/uL (0.0-0.9); ABS Neutrophils 3.2 10^3/uL (1.5-7.6); ABS Nucleated RBC 0.01 10^3/ul; Eosinophil % 0.5 %; Hematocrit 36.2 % (35-45); Hemoglobin 12.3 g/dL (11.5-14.3); Mean Corpuscular Hemoglobin 33.3 pg (27-33); Mean Corpuscular Volume 97.9 fL (80-97); Mean Platelet Volume 7.6 fL (7.5-11.2); Nucleated Red Blood Cells % 0.2 %/100WBC (0.0-0.8); Platelet Count 125 10^3/uL (150-450); Red Cell Distribution Width 15.9 % (12-17); White Blood Count 4.8 10^3/uL (3.8-11.8)
[2024-01-08 01:14] LABS: ALT 96 U/L (7-52); AST 516 U/L (13-39); Albumin 3.8 g/dL (3.2-5.2); Albumin/Globulin Ratio 1.3 (1-3); Alcohol, S < 13 mg/dL (<13); Alkaline Phosphatase 272 U/L (35-149); Anion Gap 12 mmol/L (2-16); Blood Urea Nitrogen 11 mg/dL (6-24); CO2 Carbon Dioxide 36 mmol/L (22-32); Calcium 10.3 mg/dL (8.6-10.3); Chloride 91 mmol/L (101-111); Creatinine, Serum 0.69 mg/dL (0.51-0.95); Glucose 160 mg/dL (70-100); Lipase 22 U/L (11.0-82.0); Potassium 3.5 mmol/L (3.5-5.0); Sodium 139 mmol/L (135-145); Total Protein 6.8 g/dL (6.4-8.9); eGFR CKD-EPI 118.2 (>60)
[2024-01-08 01:20] LABS: HCG Pregnancy < 0.60 mIU/mL
[2024-01-08] MEDS: Thiamine 100 MG/ML 2 ml VIAL 100 MG, Folic Acid IV 1 MG, Multiple Vitamin IV ADULT 10 M... IV ONE (02:01)
[2024-01-08] MEDS: Thiamine 100 MG/ML 2 ml VIAL (200 mg) IM ONE (03:03)
[2024-01-08 03:30] LABS: Magnesium 0.9 mg/dL (1.9-2.7)
[2024-01-08] MEDS: Magnesium Sulf 4 GM/100 ML IV 4,000 MG/100 ML BAG IVPB ONE (03:50)
[2024-01-08] MEDS ORDERED: LORazepam 2 mg VIAL 1 ml IV PUSH SCH (04:00)
[2024-01-08 04:27] LABS: Folate 7.41 ng/mL (5.90-24.80)
[2024-01-08 04:28] LABS: Vitamin B12 983 pg/mL (180-914)
[2024-01-08 04:30] LABS: Hepatitis B Surface Antigen Nonreactive (Nonreactive)
[2024-01-08] MEDS: Iohexol 300 (CONTRAST) 10 ML SDV IV ONE (04:31)
[2024-01-08 04:35] LABS: Hepatitis A Ab IgM Negative (Negative)
[2024-01-08 04:37] LABS: Hepatitis B Core IgM Nonreactive (Nonreactive)
[2024-01-08 04:48] LABS: Hepatitis C Antibody Negative (Negative)
[2024-01-08] MEDS ORDERED: Senna TAB 8.6 mg TAB PO PRN (05:44)
[2024-01-08] MEDS ORDERED: Pantoprazole VIAL 40 MG VIAL IV SCH (06:00)
[2024-01-08] MEDS: Famotidine IV 10 MG/ML 2 ml VIAL (20 mg) IV SLOW PU ONE (06:04)
[2024-01-08] MEDS: Lactated Ringers 1000 ml BAG 1,000 ML IV SCH (06:05)
[2024-01-08 07:04] LABS: INR 0.95 (0.83-1.13)
[2024-01-08 07:46] LABS: Hematocrit 34.6 % (35-45); Hemoglobin 11.6 g/dL (11.5-14.3); Mean Corpuscular Hemoglobin 33.3 pg (27-33); Mean Corpuscular Hgb Conc 33.6 g/dL (31-36); Mean Corpuscular Volume 99.1 fL (80-97); Red Blood Count 3.49 10^6/uL (3.63-4.92); Red Cell Distribution Width 15.7 % (12-17); White Blood Count 3.6 10^3/uL (3.8-11.8)
[2024-01-08 07:50] LABS: Albumin 3.1 g/dL (3.2-5.2); Albumin/Globulin Ratio 1.2 (1-3); Calcium 8.7 mg/dL (8.6-10.3); Creatinine, Serum 0.62 mg/dL (0.51-0.95); Globulin 2.5 g/dL (2-4); Magnesium 2.8 mg/dL (1.9-2.7); Potassium 2.9 mmol/L (3.5-5.0); Total Bilirubin 0.8 mg/dL (0.2-1.0); Total Protein 5.6 g/dL (6.4-8.9); eGFR CKD-EPI 121.3 (>60)
[2024-01-08 07:54] LABS: ABS Lymphocytes 0.9 10^3/uL (1.0-4.8); ABS Monocytes 0.4 10^3/uL (0.0-0.9); ABS Neutrophils 2.3 10^3/uL (1.5-7.6); ABS Nucleated RBC 0.01 10^3/ul; Eosinophil % 0.2 %; Lymphocyte % 25.3 %; Nucleated Red Blood Cells % 0.2 %/100WBC (0.0-0.8); Platelet Count 79 10^3/uL (150-450)
[2024-01-08] MEDS: Morphine 2 MG/ML SYRINGE IV PRN (08:31)
[2024-01-08] MEDS: Ondansetron 4 mg VIAL 2 MG/ML 2 ml VIAL IV PRN (08:31)
[2024-01-08 08:35] LABS: HDL Cholesterol 68.6 mg/dL
[2024-01-08] MEDS: KCL 20 MEQ/100 ML IVPREMIX 20 MEQ/100 ML BAG IV SCH (10:15)
[2024-01-08] MEDS: Buprenorp/Nalox 8-2 MG FILM SL SCH (10:20)
[2024-01-08] MEDS: Multivitamins/Minerals TAB PO SCH (10:41)
[2024-01-08 11:49] LABS: TSH Ultra Thyroid Stim Horm 4.38 mcIU/mL (0.34-5.60)
[2024-01-08 14:43] LABS: ABS Lymphocytes 1.2 10^3/uL (1.0-4.8); ABS Monocytes 0.3 10^3/uL (0.0-0.9); ABS Neutrophils 2.6 10^3/uL (1.5-7.6); ABS Nucleated RBC 0.01 10^3/ul; Eosinophil % 0.8 %; Hematocrit 33.2 % (35-45); Hemoglobin 11.2 g/dL (11.5-14.3); Mean Corpuscular Hemoglobin 33.5 pg (27-33); Mean Corpuscular Hgb Conc 33.7 g/dL (31-36); Mean Corpuscular Volume 99.6 fL (80-97); Mean Platelet Volume 7.9 fL (7.5-11.2); Nucleated Red Blood Cells % 0.3 %/100WBC (0.0-0.8); Platelet Count 80 10^3/uL (150-450); Red Blood Count 3.33 10^6/uL (3.63-4.92); Red Cell Distribution Width 15.7 % (12-17); White Blood Count 4.2 10^3/uL (3.8-11.8)
[2024-01-08 15:40] LABS: Albumin 3.4 g/dL (3.2-5.2); Albumin/Globulin Ratio 1.4 (1-3); Calcium 8.2 mg/dL (8.6-10.3); Creatinine, Serum 0.66 mg/dL (0.51-0.95); Globulin 2.5 g/dL (2-4); Potassium 3.6 mmol/L (3.5-5.0); Total Bilirubin 0.9 mg/dL (0.2-1.0); Total Protein 5.9 g/dL (6.4-8.9); eGFR CKD-EPI 119.5 (>60)
[2024-01-09] MEDS: Nicotine GUM 2MG FRUIT FLAVOR PO PRN (06:35)
[2024-01-09 08:38] LABS: ABS Eosinophils 0.1 10^3/uL (0.0-0.5); ABS Lymphocytes 1.6 10^3/uL (1.0-4.8); ABS Monocytes 0.2 10^3/uL (0.0-0.9); ABS Neutrophils 1.1 10^3/uL (1.5-7.6); Hematocrit 30.4 % (35-45); Lymphocyte % 54.6 %; Mean Corpuscular Hemoglobin 33.3 pg (27-33); Mean Corpuscular Hgb Conc 32.9 g/dL (31-36); Mean Corpuscular Volume 101.1 fL (80-97); Nucleated Red Blood Cells % 0.2 %/100WBC (0.0-0.8); Platelet Count 64 10^3/uL (150-450); Red Blood Count 3.01 10^6/uL (3.63-4.92); Red Cell Distribution Width 15.9 % (12-17); White Blood Count 2.9 10^3/uL (3.8-11.8)
[2024-01-09 09:03] LABS: Albumin 3.1 g/dL (3.2-5.2); Albumin/Globulin Ratio 1.3 (1-3); Creatinine, Serum 0.59 mg/dL (0.51-0.95); Globulin 2.3 g/dL (2-4); Potassium 4.3 mmol/L (3.5-5.0); Total Bilirubin 0.8 mg/dL (0.2-1.0); Total Protein 5.4 g/dL (6.4-8.9); eGFR CKD-EPI 122.7 (>60)
[2024-01-09] MEDS: Benzocaine/Menthol LOZ PO PRN (09:48)
[2024-01-09] MEDS: Lactated Ringers 1000 ml BAG 1,000 ML IV SCH (10:47)
[2024-01-09 15:51] VITALS: BP 121/87
[2024-01-11 20:44] LABS: Anaplasma phagocytophilum Negative (Negative); B. miyamotoi PCR, B Negative (Negative); Babesia divergens/MO-1 Negative (Negative); Babesia ducani Negative (Negative); Ehrlichia chaffeensis Negative (Negative); Ehrlichia ewingii/canis Negative (Negative); Ehrlichia muris eauclairensis Negative (Negative)
== END 2024-01-09 16:20 | disposition left against medical advice (07) ==
LOC: EDHOLD 23:54 → ED 23:54 → SUATTDRO 01-08 03:16 → MED 01-08 08:07
PROVIDERS: ADMIT Internal Medicine; ATTEND Hospitalist

== ENCOUNTER 2024-01-14 10:37 | Inpatient (IN) ==
[2024-01-14 12:28] LABS: ABS Lymphocytes 0.6 10^3/uL (1.0-4.8); ABS Monocytes 0.3 10^3/uL (0.0-0.9); ABS Neutrophils 1.6 10^3/uL (1.5-7.6); ABS Nucleated RBC 0.01 10^3/ul; Eosinophil % 0.2 %; Hematocrit 32.6 % (35-45); Hemoglobin 10.9 g/dL (11.5-14.3); Lymphocyte % 23.2 %; Mean Corpuscular Hgb Conc 33.4 g/dL (31-36); Mean Corpuscular Volume 98.9 fL (80-97); Mean Platelet Volume 7.7 fL (7.5-11.2); Nucleated Red Blood Cells % 0.2 %/100WBC (0.0-0.8); Platelet Count 93 10^3/uL (150-450); Red Cell Distribution Width 15.8 % (12-17); White Blood Count 2.5 10^3/uL (3.8-11.8)
[2024-01-14] MEDS ORDERED: Lorazepam PYXIS KEY PRN (12:36)
[2024-01-14] MEDS: Droperidol 5 MG/2 ML 2 ML VIAL IV ONE (12:56)
[2024-01-14 12:57] LABS: ALT 84 U/L (7-52); AST 405 U/L (13-39); Albumin 3.4 g/dL (3.2-5.2); Albumin/Globulin Ratio 1.2 (1-3); Alcohol, S < 13 mg/dL (<13); Alkaline Phosphatase 325 U/L (35-149); Anion Gap 14 mmol/L (2-16); Blood Urea Nitrogen 4 mg/dL (6-24); C Reactive Protein < 1.00 mg/L (<8.01); CO2 Carbon Dioxide 30 mmol/L (22-32); Calcium 9.4 mg/dL (8.6-10.3); Chloride 95 mmol/L (101-111); Creatinine, Serum 0.59 mg/dL (0.51-0.95); Globulin 2.8 g/dL (2-4); Glucose 165 mg/dL (70-100); Lipase 11 U/L (11.0-82.0); Magnesium 1.3 mg/dL (1.9-2.7); Potassium 3.2 mmol/L (3.5-5.0); Sodium 139 mmol/L (135-145); Total Bilirubin 0.7 mg/dL (0.2-1.0); Total Protein 6.2 g/dL (6.4-8.9); eGFR CKD-EPI 122.7 (>60)
[2024-01-14 13:00] LABS: HCG Pregnancy 0.72 mIU/mL
[2024-01-14] MEDS: LORazepam 2 mg VIAL 1 ml IV PUSH ONE (13:10)
[2024-01-14] MEDS: Lactated Ringers SEPSIS* BAG 1,560 ML IV ONE (13:20)
[2024-01-14] MEDS: Magnesium Sulfate 2 gm BAG 2 GM/50 ML BAG IVPB ONE (13:22)
[2024-01-14 13:48] LABS: Urine Appearance Turbid; Urine Bilirubin Negative (Negative); Urine Blood Negative (Negative); Urine Color Light-Yellow; Urine Glucose Negative (Negative); Urine Ketones Negative (Negative); Urine Nitrite Negative (Negative); Urine Protein Trace (Negative); Urine Specific Gravity 1.017 (1.002-1.030); Urine Urobilinogen Negative (Negative)
[2024-01-14] MEDS: KCL 20 MEQ/100 ML IVPREMIX 20 MEQ/100 ML BAG IV SCH (14:32)
[2024-01-14 15:01] LABS: Urine Benzodiazepine Screen Presumptive Positive (None Detect); Urine Cannabinoids Screen Presumptive Positive (None Detect); Urine Opiates Screen None Detected (None Detect)
[2024-01-14] MEDS: diazePAM INJ CARPUJECT 5 MG/ML SYRINGE IV ONE (15:36)
[2024-01-14] MEDS: Iohexol 350 (CONTRAST) 500 ML MDV IV ONE (15:56)
[2024-01-14] MEDS ORDERED: Ondansetron 4 mg VIAL 2 MG/ML 2 ml VIAL IV PRN (16:01)
[2024-01-14] MEDS: HYDROmorphone 1 MG/1 ML SYRINGE IV ONE (16:28)
[2024-01-14] MEDS: HYDROmorphone 1 MG/1 ML SYRINGE IV SLOW PU PRN ×2 (16:53→21:09)
[2024-01-14] MEDS ORDERED: LORazepam 2 mg VIAL 1 ml IV PUSH SCH (18:00)
[2024-01-14] MEDS: Buprenorp/Nalox 8-2 MG FILM SL SCH (18:07)
[2024-01-14] MEDS: Pantoprazole VIAL 40 MG VIAL IV SCH (18:08)
[2024-01-14] MEDS: LORazepam PO 0-6 for WAM protocol PO SCH (18:11)
[2024-01-14] MEDS: Lactated Ringers 1000 ml BAG 1,000 ML IV SCH (18:22)
[2024-01-14] MEDS: Nicotine GUM 2MG FRUIT FLAVOR PO PRN (18:31)
[2024-01-14 19:12] LABS: INR 0.93 (0.83-1.13)
[2024-01-14 20:15] LABS: Protime (Maddrey) 10.6 seconds (9.5-12.8)
[2024-01-14 20:29] LABS: Total Bilirubin 0.9 mg/dL (0.2-1.0)
[2024-01-14] MEDS: Enoxaparin 40 MG/0.4 ML SYR SUBCUT SCH (21:03)
[2024-01-14] MEDS: Thiamine 100 MG/ML 2 ml VIAL (200 mg) IM ONE (21:11)
[2024-01-15 06:17] LABS: Calcium 8.4 mg/dL (8.6-10.3); Creatinine, Serum 0.64 mg/dL (0.51-0.95); Magnesium 1.7 mg/dL (1.9-2.7); Phosphorus 2.4 mg/dL (2.5-5.0); Potassium 3.9 mmol/L (3.5-5.0); eGFR CKD-EPI 120.3 (>60)
[2024-01-15 07:53] LABS: Albumin 3.1 g/dL (3.2-5.2); Albumin/Globulin Ratio 1.3 (1-3); Direct Bilirubin 0.3 mg/dL (0.03-0.18); Globulin 2.4 g/dL (2-4); Indirect Bilirubin 0.5 mg/dL (0.3-1.0); Total Bilirubin 0.8 mg/dL (0.2-1.0); Total Protein 5.5 g/dL (6.4-8.9)
[2024-01-15 08:22] LABS: Hematocrit 29.6 % (35-45); Hemoglobin 9.8 g/dL (11.5-14.3); Mean Corpuscular Hemoglobin 33.4 pg (27-33); Mean Corpuscular Hgb Conc 33.2 g/dL (31-36); Mean Corpuscular Volume 100.4 fL (80-97); Mean Platelet Volume 8.3 fL (7.5-11.2); Platelet Count 68 10^3/uL (150-450); Red Blood Count 2.95 10^6/uL (3.63-4.92); Red Cell Distribution Width 16.7 % (12-17); White Blood Count 2.7 10^3/uL (3.8-11.8)
[2024-01-15] MEDS: Potassium Chlor 10 meq TAB PO SCH (09:03)
[2024-01-15] MEDS: Cholecalciferol (VIT D3) 1,000 unit TAB PO SCH (09:03)
[2024-01-15] MEDS: Magnesium Sulfate 2 gm BAG 2 GM/50 ML BAG IVPB ONE (09:05)
[2024-01-15] MEDS: Nicotine PATCH 21 MG/24 HR PATCH TRANSDERM SCH (09:06)
[2024-01-15] MEDS ORDERED: Morphine 2 MG/ML SYRINGE IV PRN ×2 (11:02→11:04)
[2024-01-15] MEDS: Multivitamins/Minerals TAB PO SCH (12:09)
[2024-01-15] MEDS: Morphine 2 MG/ML SYRINGE IV PRN (15:03)
[2024-01-15] MEDS: Enoxaparin 40 MG/0.4 ML SYR SUBCUT SCH ×2 (15:04→15:05)
[2024-01-16 06:40] LABS: Hematocrit 29.5 % (35-45); Hemoglobin 9.9 g/dL (11.5-14.3); Mean Corpuscular Hemoglobin 33.6 pg (27-33); Mean Corpuscular Hgb Conc 33.4 g/dL (31-36); Mean Corpuscular Volume 100.6 fL (80-97); Mean Platelet Volume 8.5 fL (7.5-11.2); Platelet Count 73 10^3/uL (150-450); Red Blood Count 2.94 10^6/uL (3.63-4.92); Red Cell Distribution Width 16.2 % (12-17); White Blood Count 2.4 10^3/uL (3.8-11.8)
[2024-01-16 08:18] LABS: Albumin/Globulin Ratio 1.3 (1-3); Calcium 8.6 mg/dL (8.6-10.3); Creatinine, Serum 0.55 mg/dL (0.51-0.95); Direct Bilirubin 0.3 mg/dL (0.03-0.18); Globulin 2.3 g/dL (2-4); Indirect Bilirubin 0.5 mg/dL (0.3-1.0); Magnesium 2.1 mg/dL (1.9-2.7); Potassium 4.2 mmol/L (3.5-5.0); Total Bilirubin 0.8 mg/dL (0.2-1.0); Total Protein 5.3 g/dL (6.4-8.9); eGFR CKD-EPI 124.8 (>60)
[2024-01-16] MEDS: Morphine 2 MG/ML SYRINGE IV PRN (13:50)
[2024-01-17 07:14] LABS: Hematocrit 28.4 % (35-45); Hemoglobin 9.4 g/dL (11.5-14.3); Mean Corpuscular Hemoglobin 33.7 pg (27-33); Mean Corpuscular Hgb Conc 33.2 g/dL (31-36); Mean Corpuscular Volume 101.5 fL (80-97); Mean Platelet Volume 9.2 fL (7.5-11.2); Platelet Count 76 10^3/uL (150-450); Red Cell Distribution Width 15.6 % (12-17); White Blood Count 2.4 10^3/uL (3.8-11.8)
[2024-01-17 07:27] LABS: Albumin 2.8 g/dL (3.2-5.2); Albumin/Globulin Ratio 1.3 (1-3); Calcium 8.1 mg/dL (8.6-10.3); Creatinine, Serum 0.51 mg/dL (0.51-0.95); Globulin 2.1 g/dL (2-4); Magnesium 1.8 mg/dL (1.9-2.7); Total Bilirubin 0.6 mg/dL (0.2-1.0); Total Protein 4.9 g/dL (6.4-8.9); eGFR CKD-EPI 127.1 (>60)
[2024-01-17 07:56] LABS: ABS Eosinophils 0.1 10^3/uL (0.0-0.5); ABS Monocytes 0.3 10^3/uL (0.0-0.9); Eosinophil % 2.4 %; Lymphocyte % 42.4 %; Nucleated Red Blood Cells % 0.1 %/100WBC (0.0-0.8)
[2024-01-17] MEDS: Magnesium Sulfate 2 gm BAG 2 GM/50 ML BAG IVPB ONE (10:09)
[2024-01-17] MEDS: Morphine 2 MG/ML SYRINGE IV PRN (10:28)
[2024-01-17 13:27] LABS: Anaplasma phagocytophilum Negative (Negative); B. miyamotoi PCR, B Negative (Negative); Babesia divergens/MO-1 Negative (Negative); Babesia ducani Negative (Negative); Ehrlichia chaffeensis Negative (Negative); Ehrlichia ewingii/canis Negative (Negative); Ehrlichia muris eauclairensis Negative (Negative)
[2024-01-18 06:51] LABS: Hematocrit 27.9 % (35-45); Hemoglobin 9.4 g/dL (11.5-14.3); Mean Corpuscular Hgb Conc 33.8 g/dL (31-36); Mean Corpuscular Volume 100.4 fL (80-97); Red Blood Count 2.78 10^6/uL (3.63-4.92); Red Cell Distribution Width 16.1 % (12-17); White Blood Count 3.5 10^3/uL (3.8-11.8)
[2024-01-18 06:52] LABS: Mean Platelet Volume 8.7 fL (7.5-11.2); Platelet Count 94 10^3/uL (150-450)
[2024-01-18 07:07] LABS: Calcium 8.3 mg/dL (8.6-10.3); Creatinine, Serum 0.56 mg/dL (0.51-0.95); Magnesium 1.7 mg/dL (1.9-2.7); Potassium 3.9 mmol/L (3.5-5.0); eGFR CKD-EPI 124.3 (>60)
[2024-01-18] MEDS: Buprenorp/Nalox 8-2 MG FILM SL SCH (08:28)
[2024-01-18 14:49] VITALS: BP 90/70
== END 2024-01-18 16:00 | disposition home or self-care (01) | DRG 282 ==
LOC: EDHOLD 10:37 → ED 10:37 → OBSVTOIN 14:13 → MED 16:27
PROVIDERS: ADMIT Student in an Organized Health Care Education/Training Program; ATTEND Student in an Organized Health Care Education/Training Program

== ENCOUNTER 2024-04-24 21:55 | Inpatient (IN) ==
[2024-04-24 23:03] LABS: ABS Lymphocytes 1.5 10^3/uL (1.0-4.8); ABS Monocytes 0.8 10^3/uL (0.0-0.9); ABS Neutrophils 3.7 10^3/uL (1.5-7.6); ABS Nucleated RBC 0.01 10^3/ul; Eosinophil % 0.3 %; Hemoglobin 12.9 g/dL (11.5-14.3); Lymphocyte % 25.1 %; Mean Corpuscular Hgb Conc 34.1 g/dL (31-36); Mean Corpuscular Volume 93.9 fL (80-97); Mean Platelet Volume 7.3 fL (7.5-11.2); Nucleated Red Blood Cells % 0.1 %/100WBC (0.0-0.8); Platelet Count 144 10^3/uL (150-450); Red Blood Count 4.04 10^6/uL (3.63-4.92); Red Cell Distribution Width 13.8 % (12-17)
[2024-04-24 23:14] LABS: Urine Appearance Clear; Urine Bilirubin Negative (Negative); Urine Blood Negative (Negative); Urine Color Light-Yellow; Urine Glucose Negative (Negative); Urine Ketones Negative (Negative); Urine Nitrite Negative (Negative); Urine Protein Negative (Negative); Urine Specific Gravity 1.007 (1.002-1.030); Urine Urobilinogen Negative (Negative); Urine pH 5.5 (5.0-8.0)
[2024-04-24 23:42] LABS: ALT 40 U/L (7-52); AST 201 U/L (13-39); Albumin 4.2 g/dL (3.2-5.2); Albumin/Globulin Ratio 1.2 (1-3); Alkaline Phosphatase 283 U/L (35-149); Anion Gap 19 mmol/L (2-16); Blood Urea Nitrogen 8 mg/dL (6-24); CO2 Carbon Dioxide 35 mmol/L (22-32); Calcium 10.7 mg/dL (8.6-10.3); Chloride 83 mmol/L (101-111); Creatinine, Serum 0.74 mg/dL (0.51-0.95); Globulin 3.4 g/dL (2-4); Glucose 136 mg/dL (70-100); Lipase 12 U/L (11.0-82.0); Magnesium 1.4 mg/dL (1.9-2.7); Potassium 2.7 mmol/L (3.5-5.0); Sodium 137 mmol/L (135-145); Total Bilirubin 0.8 mg/dL (0.2-1.0); Total Protein 7.6 g/dL (6.4-8.9); eGFR CKD-EPI 110.2 (>60)
[2024-04-24 23:55] LABS: HCG Pregnancy < 0.60 mIU/mL; TSH Ultra Thyroid Stim Horm 3.96 mcIU/mL (0.34-5.60)
[2024-04-24 23:58] LABS: HIV 4th Generation Nonreactive (Nonreactive)
[2024-04-25] MEDS: Lactated Ringers 1000 ml BAG 1,000 ML IV ONE ×3 (00:54→06:22)
[2024-04-25] MEDS: KCL 10 MEQ/50 ML IVPREMIX 10 MEQ/50 ML BAG IV SCH (00:56)
[2024-04-25] MEDS: Thiamine 100 MG/ML 2 ml VIAL 100 MG, Folic Acid IV 1 MG, Multiple Vitamin IV ADULT 10 M... IV ONE (01:02)
[2024-04-25] MEDS: Morphine 4 MG/ML VIAL (1 ml) IV ONE (01:48)
[2024-04-25] MEDS: Thiamine 100 MG/ML 2 ml VIAL (200 mg) IM ONE (03:01)
[2024-04-25] MEDS ORDERED: Lorazepam PYXIS KEY PRN (03:44)
[2024-04-25] MEDS: Magnesium Sulf 4 GM/100 ML IV 4,000 MG/100 ML BAG IVPB ONE (03:51)
[2024-04-25 04:32] LABS: PCO2 Arterial 50 mmHg (35-45); PO2 Arterial 76 mmHg (80-100)
[2024-04-25] MEDS: Iohexol 350 (CONTRAST) 500 ML MDV IV ONE (04:57)
[2024-04-25] MEDS: Morphine 2 MG/ML SYRINGE IV PRN (06:12)
[2024-04-25] MEDS: KCL 20 MEQ/100 ML IVPREMIX 20 MEQ/100 ML BAG IV SCH ×2 (07:09→07:22)
[2024-04-25 07:14] LABS: Hematocrit 28.8 % (35-45); Hemoglobin 9.9 g/dL (11.5-14.3); Mean Corpuscular Hemoglobin 32.2 pg (27-33); Mean Corpuscular Hgb Conc 34.5 g/dL (31-36); Mean Corpuscular Volume 93.2 fL (80-97); Red Blood Count 3.09 10^6/uL (3.63-4.92); Red Cell Distribution Width 13.4 % (12-17); White Blood Count 4.5 10^3/uL (3.8-11.8)
[2024-04-25 07:56] LABS: Albumin/Globulin Ratio 1.3 (1-3); Calcium 8.2 mg/dL (8.6-10.3); Creatinine, Serum 0.61 mg/dL (0.51-0.95); Globulin 2.3 g/dL (2-4); Magnesium 2.3 mg/dL (1.9-2.7); Potassium 2.5 mmol/L (3.5-5.0); Total Bilirubin 0.7 mg/dL (0.2-1.0); Total Protein 5.3 g/dL (6.4-8.9); eGFR CKD-EPI 121.7 (>60)
[2024-04-25] MEDS: Potassium Chlor 10 meq TAB PO SCH (08:02)
[2024-04-25 08:21] LABS: ABS Eosinophils 0.1 10^3/uL (0.0-0.5); ABS Lymphocytes 2.3 10^3/uL (1.0-4.8); ABS Monocytes 0.4 10^3/uL (0.0-0.9); ABS Neutrophils 1.8 10^3/uL (1.5-7.6); ABS Nucleated RBC 0.01 10^3/ul; Eosinophil % 1.2 %; Lymphocyte % 50.4 %; Mean Platelet Volume 6.9 fL (7.5-11.2); Nucleated Red Blood Cells % 0.1 %/100WBC (0.0-0.8); Platelet Count 94 10^3/uL (150-450)
[2024-04-25] MEDS: Buprenorp/Nalox 8-2 MG FILM SL SCH (08:46)
[2024-04-25] MEDS: Lactated Ringers 1000 ml BAG 1,000 ML IV SCH (08:47)
[2024-04-25] MEDS: NS 0.9% 1000 ml BAG 1,000 ML IV SCH (10:55)
[2024-04-25] MEDS: Potassium EFFERVES 25 meq TAB PO ONE (10:59)
[2024-04-25] MEDS: LORazepam 2 mg VIAL 1 ml IV PUSH SCH (14:06)
[2024-04-25] MEDS: Potassium EFFERVES 25 meq TAB PO SCH (18:27)
[2024-04-25] MEDS: Ondansetron 4 mg VIAL 2 MG/ML 2 ml VIAL IV PRN (20:21)
[2024-04-25] MEDS ORDERED: LORazepam 2 MG/ML 1 mL Syringe IV PRN (21:29)
[2024-04-25] MEDS ORDERED: LORazepam 2 mg VIAL 1 ml IV PUSH PRN (21:33)
[2024-04-25] MEDS: Haloperidol 5 mg/ml SDV IV/IM 5 MG/ML AMP IV SLOW PU PRN (22:21)
[2024-04-25] MEDS: Polyethylene Glycol 3350 17 GM PACKET PO SCH (23:49)
[2024-04-26 06:31] LABS: ABS Eosinophils 0.1 10^3/uL (0.0-0.5); ABS Monocytes 0.2 10^3/uL (0.0-0.9); Eosinophil % 2.6 %; Hematocrit 30.2 % (35-45); Hemoglobin 10.2 g/dL (11.5-14.3); Lymphocyte % 45.7 %; Mean Corpuscular Hemoglobin 31.9 pg (27-33); Mean Corpuscular Hgb Conc 33.8 g/dL (31-36); Mean Corpuscular Volume 94.6 fL (80-97); Mean Platelet Volume 7.2 fL (7.5-11.2); Nucleated Red Blood Cells % 0.1 %/100WBC (0.0-0.8); Platelet Count 89 10^3/uL (150-450); Red Cell Distribution Width 13.2 % (12-17); White Blood Count 4.3 10^3/uL (3.8-11.8)
[2024-04-26 06:38] LABS: Albumin/Globulin Ratio 1.4 (1-3); Calcium 7.3 mg/dL (8.6-10.3); Creatinine, Serum 0.57 mg/dL (0.51-0.95); Globulin 2.2 g/dL (2-4); Magnesium 1.3 mg/dL (1.9-2.7); Potassium 3.9 mmol/L (3.5-5.0); Total Bilirubin 0.8 mg/dL (0.2-1.0); Total Protein 5.2 g/dL (6.4-8.9); eGFR CKD-EPI 123.7 (>60)
[2024-04-26] MEDS: Magnesium Sulf 4 GM/100 ML IV 4,000 MG/100 ML BAG IVPB ONE (10:50)
[2024-04-26] MEDS: Nicotine GUM 2MG FRUIT FLAVOR PO PRN (16:41)
[2024-04-27 09:30] LABS: Albumin 3.8 g/dL (3.2-5.2); Albumin/Globulin Ratio 1.3 (1-3); Calcium 8.6 mg/dL (8.6-10.3); Creatinine, Serum 0.52 mg/dL (0.51-0.95); Potassium 4.4 mmol/L (3.5-5.0); Total Bilirubin 0.9 mg/dL (0.2-1.0); Total Protein 6.8 g/dL (6.4-8.9); eGFR CKD-EPI 126.5 (>60)
[2024-04-27] MEDS: LORazepam 2 mg VIAL 1 ml IV PUSH SCH (15:55)
[2024-04-27] MEDS: LORazepam 2 mg VIAL 1 ml IV PUSH PRN (22:20)
[2024-04-28] MEDS: Calcium Carb (TUMS) 500 mg CHEW TAB PO ONE (06:03)
[2024-04-28] MEDS ORDERED: Nicotine GUM 4MG FRUIT FLAVOR PO PRN (11:52)
[2024-04-28 18:00] VITALS: BP 109/81
== END 2024-04-28 18:54 | disposition left against medical advice (07) | DRG 282 ==
LOC: EDHOLD 21:55 → ED 21:55 → SUATTDRO 04-25 15:01 → MED 04-25 16:17
PROVIDERS: ADMIT Internal Medicine; ATTEND Internal Medicine

== ENCOUNTER 2024-06-22 14:19 | Inpatient (IN) ==
[2024-06-22 15:02] LABS: ABS Lymphocytes 2.2 10^3/uL (1.0-4.8); ABS Monocytes 0.3 10^3/uL (0.0-0.9); ABS Neutrophils 2.8 10^3/uL (1.5-7.6); ABS Nucleated RBC 0.01 10^3/ul; Eosinophil % 0.5 %; Hematocrit 44.5 % (35-45); Hemoglobin 14.9 g/dL (11.5-14.3); Lymphocyte % 41.1 %; Mean Corpuscular Hemoglobin 32.5 pg (27-33); Mean Corpuscular Hgb Conc 33.5 g/dL (31-36); Mean Platelet Volume 7.3 fL (7.5-11.2); Nucleated Red Blood Cells % 0.2 %/100WBC (0.0-0.8); Platelet Count 315 10^3/uL (150-450); Red Blood Count 4.59 10^6/uL (3.63-4.92); Red Cell Distribution Width 19.8 % (12-17); White Blood Count 5.3 10^3/uL (3.8-11.8)
[2024-06-22 15:24] LABS: ALT 41 U/L (7-52); AST 282 U/L (13-39); Albumin 3.9 g/dL (3.2-5.2); Albumin/Globulin Ratio 1.1 (1-3); Alkaline Phosphatase 451 U/L (35-149); Anion Gap 14 mmol/L (2-16); Blood Urea Nitrogen 8 mg/dL (6-24); CO2 Carbon Dioxide 35 mmol/L (22-32); Calcium 9.6 mg/dL (8.6-10.3); Chloride 92 mmol/L (101-111); Creatinine, Serum 0.63 mg/dL (0.51-0.95); Globulin 3.4 g/dL (2-4); Glucose 104 mg/dL (70-100); Lipase 35 U/L (11.0-82.0); Potassium 3.6 mmol/L (3.5-5.0); Sodium 141 mmol/L (135-145); Total Bilirubin 0.7 mg/dL (0.2-1.0); Total Protein 7.3 g/dL (6.4-8.9)
[2024-06-22 15:29] LABS: HCG Pregnancy < 0.60 mIU/mL
[2024-06-22] MEDS ORDERED: Lorazepam PYXIS KEY PRN (15:45)
[2024-06-22] MEDS: LORazepam 2 mg VIAL 1 ml IV PUSH ONE (15:56)
[2024-06-22] MEDS: Ondansetron 4 mg VIAL 2 MG/ML 2 ml VIAL IV ONE (15:56)
[2024-06-22 18:04] LABS: Urine Appearance Turbid; Urine Bilirubin Negative (Negative); Urine Blood Negative (Negative); Urine Color Yellow; Urine Glucose Negative (Negative); Urine Ketones Trace (Negative); Urine Nitrite Negative (Negative); Urine Protein 1+ (>=30 mg/dL) (Negative); Urine Specific Gravity 1.018 (1.002-1.030); Urine Urobilinogen 1+ (Negative); Urine pH 6.5 (5.0-8.0)
[2024-06-22 18:09] LABS: Urine Bacteria 1+ /HPF (Absent); Urine Red Blood Cell Trace(0-2/hpf) /HPF (0-Trace); Urine Squamous Epithelial Cell Present /HPF (Absent); Urine White Blood Cell 2+(11-20/hpf) /HPF (0-Trace)
[2024-06-22] MEDS: Lactated Ringers 1000 ml BAG 1,000 ML IV ONE ×2 (18:12→22:51)
[2024-06-22] MEDS: Thiamine 100 MG/ML 2 ml VIAL 100 MG, Folic Acid IV 1 MG, Multiple Vitamin IV ADULT 10 M... IV ONE (19:58)
[2024-06-23] MEDS ORDERED: Lorazepam PYXIS KEY PRN (00:27)
[2024-06-23] MEDS: LORazepam 2 mg VIAL 1 ml IV PUSH ONE (00:34)
[2024-06-23] MEDS: Morphine 2 MG/ML SYRINGE IV ONE (00:34)
[2024-06-23] MEDS: Famotidine IV 10 MG/ML 2 ml VIAL (20 mg) IV SLOW PU ONE (00:35)
[2024-06-23] MEDS: LORazepam 2 MG/ML 1 mL Syringe IV ONE (00:35)
[2024-06-23] MEDS: Iohexol 300 (CONTRAST) 10 ML SDV IV ONE (03:23)
[2024-06-23] MEDS: LORazepam 2 mg VIAL 1 ml IV PUSH SCH (03:44)
[2024-06-23] MEDS: Morphine 4 MG/ML VIAL (1 ml) IV ONE ×2 (08:17→12:08)
[2024-06-23] MEDS: diazePAM INJ CARPUJECT 5 MG/ML SYRINGE IV ONE (08:17)
[2024-06-23 09:37] LABS: ABS Lymphocytes 2.7 10^3/uL (1.0-4.8); ABS Monocytes 0.4 10^3/uL (0.0-0.9); ABS Neutrophils 2.6 10^3/uL (1.5-7.6); ABS Nucleated RBC 0.01 10^3/ul; Eosinophil % 0.6 %; Hematocrit 33.2 % (35-45); Hemoglobin 11.2 g/dL (11.5-14.3); Lymphocyte % 47.3 %; Mean Corpuscular Hemoglobin 32.8 pg (27-33); Mean Corpuscular Hgb Conc 33.7 g/dL (31-36); Mean Corpuscular Volume 97.1 fL (80-97); Mean Platelet Volume 7.4 fL (7.5-11.2); Nucleated Red Blood Cells % 0.1 %/100WBC (0.0-0.8); Platelet Count 160 10^3/uL (150-450); Red Blood Count 3.42 10^6/uL (3.63-4.92); Red Cell Distribution Width 19.1 % (12-17); White Blood Count 5.8 10^3/uL (3.8-11.8)
[2024-06-23 10:31] LABS: ALT 30 U/L (7-52); AST 198 U/L (13-39); Albumin 3.1 g/dL (3.2-5.2); Albumin/Globulin Ratio 1.2 (1-3); Alkaline Phosphatase 316 U/L (35-149); Anion Gap 9 mmol/L (2-16); Blood Urea Nitrogen 5 mg/dL (6-24); CO2 Carbon Dioxide 34 mmol/L (22-32); Calcium 7.7 mg/dL (8.6-10.3); Chloride 90 mmol/L (101-111); Globulin 2.5 g/dL (2-4); Glucose 95 mg/dL (70-100); Lipase < 10 U/L (11.0-82.0); Potassium 3.4 mmol/L (3.5-5.0); Sodium 133 mmol/L (135-145); Total Bilirubin 0.8 mg/dL (0.2-1.0); Total Protein 5.6 g/dL (6.4-8.9); eGFR CKD-EPI 121.5 (>60)
[2024-06-23] MEDS: Lactated Ringers 1000 ml BAG 1,000 ML IV SCH (14:35)
[2024-06-23] MEDS: Buprenorp/Nalox 8-2 MG FILM SL SCH (14:35)
[2024-06-23] MEDS: Morphine 2 MG/ML SYRINGE IV PRN ×2 (14:35→20:56)
[2024-06-23] MEDS: Magnesium Sulfate 2 gm BAG 2 GM/50 ML BAG IVPB ONE (18:25)
[2024-06-23] MEDS: Magnesium Sulfate IV 1GM/100ML 1 GM/100 ML BAG IV ONE (19:20)
[2024-06-24 06:19] LABS: ABS Monocytes 0.2 10^3/uL (0.0-0.9); ABS Neutrophils 1.4 10^3/uL (1.5-7.6); ABS Nucleated RBC 0.01 10^3/ul; Eosinophil % 0.8 %; Hematocrit 32.8 % (35-45); Lymphocyte % 54.7 %; Mean Corpuscular Hemoglobin 33.1 pg (27-33); Mean Corpuscular Hgb Conc 33.5 g/dL (31-36); Mean Corpuscular Volume 98.7 fL (80-97); Mean Platelet Volume 8.1 fL (7.5-11.2); Nucleated Red Blood Cells % 0.1 %/100WBC (0.0-0.8); Platelet Count 138 10^3/uL (150-450); Red Blood Count 3.32 10^6/uL (3.63-4.92); Red Cell Distribution Width 18.9 % (12-17); White Blood Count 3.7 10^3/uL (3.8-11.8)
[2024-06-24 06:44] LABS: Albumin/Globulin Ratio 1.3 (1-3); Calcium 8.4 mg/dL (8.6-10.3); Creatinine, Serum 0.46 mg/dL (0.51-0.95); Globulin 2.4 g/dL (2-4); Magnesium 1.4 mg/dL (1.9-2.7); Potassium 3.3 mmol/L (3.5-5.0); Total Bilirubin 0.7 mg/dL (0.2-1.0); Total Protein 5.4 g/dL (6.4-8.9); eGFR CKD-EPI 129.5 (>60)
[2024-06-24] MEDS: Nicotine PATCH 14 MG/24 HR PATCH TRANSDERM SCH (08:05)
[2024-06-24] MEDS: Potassium Chlor 20 meq TAB.ER PO ONE (08:07)
[2024-06-24] MEDS: Lactated Ringers 1000 ml BAG 1,000 ML IV SCH ×2 (08:08→17:00)
[2024-06-24 08:11] LABS: Phosphorus 3.4 mg/dL (2.5-5.0)
[2024-06-24] MEDS: Magnesium Sulf 4 GM/100 ML IV 4,000 MG/100 ML BAG IVPB ONE (08:42)
[2024-06-24] MEDS: Morphine 2 MG/ML SYRINGE IV PRN (20:51)
[2024-06-25] MEDS: Nicotine GUM 4MG FRUIT FLAVOR PO PRN (06:02)
[2024-06-25 06:34] LABS: Hematocrit 33.8 % (35-45); Hemoglobin 11.3 g/dL (11.5-14.3); Mean Corpuscular Hemoglobin 33.2 pg (27-33); Mean Corpuscular Hgb Conc 33.3 g/dL (31-36); Mean Corpuscular Volume 99.5 fL (80-97); Red Cell Distribution Width 19.2 % (12-17)
[2024-06-25 06:39] LABS: Creatinine, Serum 0.47 mg/dL (0.51-0.95); Magnesium 1.7 mg/dL (1.9-2.7); Potassium 4.1 mmol/L (3.5-5.0); eGFR CKD-EPI 128.8 (>60)
[2024-06-25 07:12] LABS: Large Platelets Present
[2024-06-25 07:19] LABS: ABS Eosinophils 0.1 10^3/uL (0.0-0.5); ABS Lymphocytes 2.2 10^3/uL (1.0-4.8); ABS Monocytes 0.2 10^3/uL (0.0-0.9); ABS Neutrophils 1.5 10^3/uL (1.5-7.6); Eosinophil % 2.6 %; Lymphocyte % 54.6 %; Mean Platelet Volume 8.2 fL (7.5-11.2); Nucleated Red Blood Cells % 0.1 %/100WBC (0.0-0.8); Platelet Count 115 10^3/uL (150-450)
[2024-06-25] MEDS: Magnesium Sulf 4 GM/100 ML IV 4,000 MG/100 ML BAG IVPB ONE (14:16)
[2024-06-25] MEDS ORDERED: Lorazepam PYXIS KEY PRN (17:12)
[2024-06-25] MEDS: LORazepam 2 mg VIAL 1 ml IV PUSH ONE (17:16)
[2024-06-25] MEDS: Morphine 2 MG/ML SYRINGE IV PRN (23:44)
[2024-06-26 07:05] LABS: Calcium 9.4 mg/dL (8.6-10.3); Creatinine, Serum 0.55 mg/dL (0.51-0.95); Magnesium 1.8 mg/dL (1.9-2.7); Potassium 4.1 mmol/L (3.5-5.0)
[2024-06-26 07:14] LABS: Hematocrit 32.6 % (35-45); Mean Corpuscular Hemoglobin 33.4 pg (27-33); Mean Corpuscular Hgb Conc 33.8 g/dL (31-36); Red Blood Count 3.29 10^6/uL (3.63-4.92); Red Cell Distribution Width 18.7 % (12-17); White Blood Count 3.5 10^3/uL (3.8-11.8)
[2024-06-26] MEDS: Magnesium Sulf 4 GM/100 ML IV 4,000 MG/100 ML BAG IVPB ONE (07:54)
[2024-06-26 08:02] LABS: ABS Eosinophils 0.1 10^3/uL (0.0-0.5); ABS Lymphocytes 1.6 10^3/uL (1.0-4.8); ABS Monocytes 0.2 10^3/uL (0.0-0.9); ABS Neutrophils 1.6 10^3/uL (1.5-7.6); ABS Nucleated RBC 0.01 10^3/ul; Eosinophil % 2.2 %; Lymphocyte % 47.3 %; Mean Platelet Volume 8.6 fL (7.5-11.2); Nucleated Red Blood Cells % 0.1 %/100WBC (0.0-0.8); Platelet Count 97 10^3/uL (150-450)
[2024-06-26 09:21] VITALS: BP 98/86
== END 2024-06-26 16:45 | disposition home or self-care (01) | DRG 282 ==
LOC: ED 14:19 → EDHOLD 14:19 → OBSVTOIN 06-23 13:36 → SUATTDRO 06-23 13:36 → MEDTELE 06-23 16:18
PROVIDERS: ADMIT Student in an Organized Health Care Education/Training Program; ATTEND Student in an Organized Health Care Education/Training Program

== ENCOUNTER 2024-07-02 17:37 | Inpatient (IN) ==
[2024-07-02 18:09] LABS: ABS Lymphocytes 1.2 10^3/uL (1.0-4.8); ABS Monocytes 0.5 10^3/uL (0.0-0.9); Hematocrit 43.9 % (35-45); Hemoglobin 14.7 g/dL (11.5-14.3); Lymphocyte % 18.2 %; Mean Corpuscular Hemoglobin 32.4 pg (27-33); Mean Corpuscular Hgb Conc 33.5 g/dL (31-36); Mean Corpuscular Volume 96.6 fL (80-97); Mean Platelet Volume 7.8 fL (7.5-11.2); Platelet Count 313 10^3/uL (150-450); Red Blood Count 4.55 10^6/uL (3.63-4.92); Red Cell Distribution Width 18.6 % (12-17); White Blood Count 6.8 10^3/uL (3.8-11.8)
[2024-07-02 18:28] LABS: Urine Appearance Turbid; Urine Bilirubin Negative (Negative); Urine Blood Negative (Negative); Urine Color Yellow; Urine Glucose Negative (Negative); Urine Ketones 1+ (Negative); Urine Nitrite Negative (Negative); Urine Protein 1+ (>=30 mg/dL) (Negative); Urine Specific Gravity 1.027 (1.002-1.030); Urine Urobilinogen Negative (Negative)
[2024-07-02 18:41] LABS: ALT 34 U/L (7-52); AST 119 U/L (13-39); Albumin 4.1 g/dL (3.2-5.2); Albumin/Globulin Ratio 1.2 (1-3); Alcohol, S 397 mg/dL (<13); Alkaline Phosphatase 311 U/L (35-149); Anion Gap 32 mmol/L (2-16); Blood Urea Nitrogen 15 mg/dL (6-24); CO2 Carbon Dioxide 23 mmol/L (22-32); Chloride 90 mmol/L (101-111); Creatinine, Serum 0.71 mg/dL (0.51-0.95); Globulin 3.3 g/dL (2-4); Glucose 128 mg/dL (70-100); Potassium 3.4 mmol/L (3.5-5.0); Sodium 145 mmol/L (135-145); Total Bilirubin 0.5 mg/dL (0.2-1.0); Total Protein 7.4 g/dL (6.4-8.9); eGFR CKD-EPI 115.1 (>60)
[2024-07-02] MEDS: Lactated Ringers 1000 ml BAG 1,000 ML IV SCH (18:46)
[2024-07-02 19:34] LABS: Urine Bacteria 1+ /HPF (Absent); Urine Red Blood Cell Trace(0-2/hpf) /HPF (0-Trace); Urine Squamous Epithelial Cell Present /HPF (Absent); Urine White Blood Cell Trace(0-5/hpf) /HPF (0-Trace)
[2024-07-02] MEDS: Morphine 4 MG/ML VIAL (1 ml) IV ONE ×2 (19:54→21:46)
[2024-07-02] MEDS: Ondansetron 4 mg VIAL 2 MG/ML 2 ml VIAL IV ONE (19:56)
[2024-07-02 20:30] LABS: Lipase 16 U/L (11.0-82.0)
[2024-07-02 20:38] LABS: HCG Pregnancy < 0.60 mIU/mL
[2024-07-02] MEDS: Iohexol 350 (CONTRAST) 500 ML MDV IV ONE (21:43)
[2024-07-02] MEDS: Thiamine 100 MG/ML 2 ml VIAL (200 mg) IV ONE (22:56)
[2024-07-02] MEDS: Metoclopramide 5 MG/ML VIAL (10 mg) IV SLOW PU ONE (22:57)
[2024-07-02] MEDS: Thiamine IV 100 MG in NS 0.9% 50 ML Q24H IV ONE (23:38)
[2024-07-02] MEDS: Lactated Ringers 1000 ml BAG 1,000 ML IV ONE (23:41)
[2024-07-03 00:42] LABS: Albumin 3.5 g/dL (3.2-5.2); Albumin/Globulin Ratio 1.3 (1-3); Calcium 8.9 mg/dL (8.6-10.3); Creatinine, Serum 0.66 mg/dL (0.51-0.95); Globulin 2.6 g/dL (2-4); Potassium 3.5 mmol/L (3.5-5.0); Total Bilirubin 0.5 mg/dL (0.2-1.0); Total Protein 6.1 g/dL (6.4-8.9); eGFR CKD-EPI 118.7 (>60)
[2024-07-03] MEDS ORDERED: Lorazepam PYXIS KEY PRN (03:40)
[2024-07-03] MEDS: LORazepam 2 mg VIAL 1 ml IV PUSH ONE (03:45)
[2024-07-03] MEDS ORDERED: LORazepam 2 mg VIAL 1 ml ONE (05:19)
[2024-07-03] MEDS: LORazepam 2 mg VIAL 1 ml IV PUSH SCH ×2 (05:22→10:40)
[2024-07-03] MEDS: Thiamine 100 MG/ML 2 ml VIAL (200 mg) IM ONE (05:29)
[2024-07-03] MEDS: Multivitamins/Minerals TAB PO SCH (05:31)
[2024-07-03] MEDS: Morphine 2 MG/ML SYRINGE IV PRN (05:32)
[2024-07-03] MEDS: Lactated Ringers 1000 ml BAG 1,000 ML IV SCH (05:37)
[2024-07-03] MEDS: Lactated Ringers 1000 ml BAG 1,000 ML IV ONE (06:26)
[2024-07-03 06:38] LABS: Hematocrit 33.9 % (35-45); Hemoglobin 11.1 g/dL (11.5-14.3); Mean Corpuscular Hemoglobin 32.2 pg (27-33); Mean Corpuscular Hgb Conc 32.9 g/dL (31-36); Mean Corpuscular Volume 97.7 fL (80-97); Mean Platelet Volume 7.9 fL (7.5-11.2); Platelet Count 236 10^3/uL (150-450); Red Blood Count 3.46 10^6/uL (3.63-4.92); Red Cell Distribution Width 18.2 % (12-17)
[2024-07-03 07:30] LABS: Albumin 3.4 g/dL (3.2-5.2); Albumin/Globulin Ratio 1.4 (1-3); Calcium 8.4 mg/dL (8.6-10.3); Creatinine, Serum 0.82 mg/dL (0.51-0.95); Globulin 2.4 g/dL (2-4); Magnesium 1.3 mg/dL (1.9-2.7); Phosphorus 4.1 mg/dL (2.5-5.0); Potassium 3.8 mmol/L (3.5-5.0); Total Bilirubin 0.6 mg/dL (0.2-1.0); Total Protein 5.8 g/dL (6.4-8.9); eGFR CKD-EPI 96.8 (>60)
[2024-07-03] MEDS: Nicotine PATCH 14 MG/24 HR PATCH TRANSDERM SCH (07:54)
[2024-07-03] MEDS: Buprenorp/Nalox 8-2 MG FILM SL SCH (08:11)
[2024-07-03] MEDS: Morphine 2 MG/ML SYRINGE IV ONE (08:55)
[2024-07-03] MEDS: Ondansetron 4 mg VIAL 2 MG/ML 2 ml VIAL IV PRN (10:41)
[2024-07-04 06:21] LABS: Hematocrit 30.6 % (35-45); Hemoglobin 10.2 g/dL (11.5-14.3); Mean Corpuscular Hemoglobin 32.8 pg (27-33); Mean Corpuscular Hgb Conc 33.2 g/dL (31-36); Mean Corpuscular Volume 98.7 fL (80-97); Platelet Count 129 10^3/uL (150-450); Red Cell Distribution Width 17.1 % (12-17); White Blood Count 4.4 10^3/uL (3.8-11.8)
[2024-07-04 06:39] LABS: Calcium 8.9 mg/dL (8.6-10.3); Creatinine, Serum 0.65 mg/dL (0.51-0.95); Magnesium 1.7 mg/dL (1.9-2.7); Potassium 4.1 mmol/L (3.5-5.0); eGFR CKD-EPI 119.1 (>60)
[2024-07-04] MEDS: Magnesium Sulfate 2 gm BAG 2 GM/50 ML BAG IVPB ONE (08:29)
[2024-07-04 09:20] LABS: Phosphorus 2.8 mg/dL (2.5-5.0)
[2024-07-04] MEDS: Magnesium Sulfate IV 1GM/100ML 1 GM/100 ML BAG IV ONE (12:41)
[2024-07-04] MEDS ORDERED: Lorazepam PYXIS KEY PRN (15:51)
[2024-07-04] MEDS: Al Hydrox/Mg Hydrox/Simet LIQ 30 ML UDC PO PRN (16:22)
[2024-07-04] MEDS: Lactated Ringers 1000 ml BAG 1,000 ML IV ONE (20:26)
[2024-07-05] MEDS: LORazepam 2 mg VIAL 1 ml IV PUSH SCH (00:54)
[2024-07-05 06:08] LABS: Hematocrit 32.4 % (35-45); Hemoglobin 10.7 g/dL (11.5-14.3); Mean Corpuscular Hemoglobin 32.6 pg (27-33); Mean Corpuscular Hgb Conc 33.1 g/dL (31-36); Mean Corpuscular Volume 98.6 fL (80-97); Mean Platelet Volume 8.3 fL (7.5-11.2); Platelet Count 116 10^3/uL (150-450); Red Blood Count 3.28 10^6/uL (3.63-4.92); Red Cell Distribution Width 17.3 % (12-17); White Blood Count 4.2 10^3/uL (3.8-11.8)
[2024-07-05 06:39] LABS: Calcium 9.1 mg/dL (8.6-10.3); Creatinine, Serum 0.69 mg/dL (0.51-0.95); Magnesium 1.9 mg/dL (1.9-2.7); Phosphorus 4.1 mg/dL (2.5-5.0); Potassium 4.3 mmol/L (3.5-5.0); eGFR CKD-EPI 117.4 (>60)
[2024-07-05] MEDS: Magnesium Sulfate IV 1GM/100ML 1 GM/100 ML BAG IV ONE (08:55)
[2024-07-05 12:04] LABS: TSH Ultra Thyroid Stim Horm 14.13 mcIU/mL (0.34-5.60)
[2024-07-05] MEDS: Lidocaine PATCH 5% PATCH TRANSDERM SCH (13:26)
[2024-07-05] MEDS ORDERED: Naloxone Nasal Spray 4 MG/0.1 ML NASAL.SPR INTRANASAL PRN (16:39)
[2024-07-06 06:46] LABS: ABS Eosinophils 0.2 10^3/uL (0.0-0.5); ABS Lymphocytes 1.7 10^3/uL (1.0-4.8); ABS Monocytes 0.2 10^3/uL (0.0-0.9); ABS Neutrophils 2.1 10^3/uL (1.5-7.6); Eosinophil % 3.8 %; Hematocrit 31.5 % (35-45); Hemoglobin 10.5 g/dL (11.5-14.3); Mean Corpuscular Hemoglobin 32.9 pg (27-33); Mean Corpuscular Hgb Conc 33.3 g/dL (31-36); Mean Platelet Volume 8.5 fL (7.5-11.2); Nucleated Red Blood Cells % 0.1 %/100WBC (0.0-0.8); Platelet Count 109 10^3/uL (150-450); Red Blood Count 3.18 10^6/uL (3.63-4.92); Red Cell Distribution Width 17.2 % (12-17); White Blood Count 4.3 10^3/uL (3.8-11.8)
[2024-07-06 07:04] LABS: Calcium 9.1 mg/dL (8.6-10.3); Creatinine, Serum 0.65 mg/dL (0.51-0.95); Magnesium 1.7 mg/dL (1.9-2.7); Phosphorus 5.6 mg/dL (2.5-5.0); Potassium 4.2 mmol/L (3.5-5.0); eGFR CKD-EPI 119.1 (>60)
[2024-07-06] MEDS: Magnesium Sulfate 2 gm BAG 2 GM/50 ML BAG IVPB ONE (07:47)
[2024-07-06] MEDS: Magnesium Sulfate IV 1GM/100ML 1 GM/100 ML BAG IV ONE (10:17)
[2024-07-06] MEDS: Lactated Ringers 1000 ml BAG 1,000 ML IV ONE (14:48)
[2024-07-07 06:24] LABS: Hematocrit 31.7 % (35-45); Hemoglobin 10.4 g/dL (11.5-14.3); Mean Corpuscular Hemoglobin 32.5 pg (27-33); Mean Corpuscular Hgb Conc 32.9 g/dL (31-36); Mean Corpuscular Volume 98.9 fL (80-97); Mean Platelet Volume 8.4 fL (7.5-11.2); Platelet Count 106 10^3/uL (150-450); Red Cell Distribution Width 17.2 % (12-17); White Blood Count 3.6 10^3/uL (3.8-11.8)
[2024-07-07 06:50] LABS: Anion Gap 6 mmol/L (2-16); Blood Urea Nitrogen 9 mg/dL (6-24); CO2 Carbon Dioxide 34 mmol/L (22-32); Calcium 9.3 mg/dL (8.6-10.3); Chloride 100 mmol/L (101-111); Glucose 110 mg/dL (70-100); Magnesium 1.6 mg/dL (1.9-2.7); Potassium 4.7 mmol/L (3.5-5.0); Sodium 140 mmol/L (135-145); eGFR CKD-EPI 99.7 (>60)
[2024-07-07] MEDS: Magnesium Sulf 4 GM/100 ML IV 4,000 MG/100 ML BAG IVPB ONE (08:48)
[2024-07-07] MEDS ORDERED: Senna TAB 8.6 mg TAB PO PRN (09:49)
[2024-07-07] MEDS ORDERED: Polyethylene Glycol 3350 17 GM PACKET PO PRN (09:50)
[2024-07-07 10:08] LABS: Lipase < 10 U/L (11.0-82.0); Phosphorus 4.8 mg/dL (2.5-5.0)
[2024-07-07] MEDS: Polyethylene Glycol 3350 17 GM PACKET PO SCH (13:52)
[2024-07-07] MEDS: Senna TAB 8.6 mg TAB PO SCH (21:11)
[2024-07-07] MEDS ORDERED: Lorazepam PYXIS KEY PRN (23:42)
[2024-07-07] MEDS: LORazepam 2 mg VIAL 1 ml IV PUSH ONE (23:52)
[2024-07-08 08:08] LABS: ABS Eosinophils 0.2 10^3/uL (0.0-0.5); ABS Lymphocytes 1.9 10^3/uL (1.0-4.8); ABS Monocytes 0.4 10^3/uL (0.0-0.9); ABS Neutrophils 2.1 10^3/uL (1.5-7.6); Eosinophil % 3.4 %; Hematocrit 32.5 % (35-45); Hemoglobin 10.8 g/dL (11.5-14.3); Lymphocyte % 42.1 %; Mean Corpuscular Hemoglobin 32.7 pg (27-33); Mean Corpuscular Hgb Conc 33.1 g/dL (31-36); Mean Corpuscular Volume 98.7 fL (80-97); Mean Platelet Volume 8.3 fL (7.5-11.2); Platelet Count 107 10^3/uL (150-450); Red Blood Count 3.29 10^6/uL (3.63-4.92); Red Cell Distribution Width 17.5 % (12-17); White Blood Count 4.5 10^3/uL (3.8-11.8)
[2024-07-08 08:42] LABS: Calcium 9.4 mg/dL (8.6-10.3); Creatinine, Serum 0.79 mg/dL (0.51-0.95); Magnesium 1.6 mg/dL (1.9-2.7); Potassium 3.8 mmol/L (3.5-5.0); eGFR CKD-EPI 101.2 (>60)
[2024-07-08] MEDS: Potassium Chlor 20 meq TAB.ER PO ONE (10:05)
[2024-07-08] MEDS: Magnesium Sulf 4 GM/100 ML IV 4,000 MG/100 ML BAG IVPB ONE (10:05)
[2024-07-08 16:48] LABS: Phosphorus 4.7 mg/dL (2.5-5.0)
[2024-07-09] MEDS: Lidocaine PATCH 5% PATCH TRANSDERM ONE (03:50)
[2024-07-09 06:02] LABS: Hematocrit 32.5 % (35-45); Hemoglobin 10.7 g/dL (11.5-14.3); Mean Corpuscular Hemoglobin 32.5 pg (27-33); Mean Corpuscular Hgb Conc 32.9 g/dL (31-36); Mean Corpuscular Volume 98.7 fL (80-97); Mean Platelet Volume 8.7 fL (7.5-11.2); Platelet Count 123 10^3/uL (150-450); Red Cell Distribution Width 17.6 % (12-17); White Blood Count 4.1 10^3/uL (3.8-11.8)
[2024-07-09 06:20] LABS: Calcium 9.6 mg/dL (8.6-10.3); Creatinine, Serum 0.71 mg/dL (0.51-0.95); Magnesium 1.5 mg/dL (1.9-2.7); Phosphorus 5.2 mg/dL (2.5-5.0); Potassium 4.4 mmol/L (3.5-5.0); eGFR CKD-EPI 115.1 (>60)
[2024-07-09] MEDS: Magnesium Sulf 4 GM/100 ML IV 4,000 MG/100 ML BAG IVPB ONE (08:38)
[2024-07-10] MEDS: Lidocaine PATCH 5% PATCH TRANSDERM ONE (04:25)
[2024-07-10 06:19] LABS: Hematocrit 35.3 % (35-45); Hemoglobin 11.6 g/dL (11.5-14.3); Mean Corpuscular Hemoglobin 32.3 pg (27-33); Mean Corpuscular Hgb Conc 32.8 g/dL (31-36); Mean Corpuscular Volume 98.4 fL (80-97); Mean Platelet Volume 8.4 fL (7.5-11.2); Platelet Count 169 10^3/uL (150-450); Red Blood Count 3.59 10^6/uL (3.63-4.92); Red Cell Distribution Width 17.2 % (12-17); White Blood Count 3.9 10^3/uL (3.8-11.8)
[2024-07-10 06:44] LABS: Calcium 9.7 mg/dL (8.6-10.3); Creatinine, Serum 0.74 mg/dL (0.51-0.95); Magnesium 1.5 mg/dL (1.9-2.7); Phosphorus 5.9 mg/dL (2.5-5.0); eGFR CKD-EPI 109.5 (>60)
[2024-07-10] MEDS: Magnesium Sulf 4 GM/100 ML IV 4,000 MG/100 ML BAG IVPB ONE (09:36)
[2024-07-10] MEDS: Polyethylene Glycol 3350 17 GM PACKET PO SCH (13:42)
[2024-07-11 06:21] LABS: Hemoglobin 9.7 g/dL (11.5-14.3); Mean Corpuscular Hemoglobin 32.5 pg (27-33); Mean Corpuscular Hgb Conc 33.4 g/dL (31-36); Mean Corpuscular Volume 97.4 fL (80-97); Mean Platelet Volume 8.4 fL (7.5-11.2); Platelet Count 172 10^3/uL (150-450); Red Blood Count 2.98 10^6/uL (3.63-4.92); Red Cell Distribution Width 16.8 % (12-17); White Blood Count 5.6 10^3/uL (3.8-11.8)
[2024-07-11 06:36] LABS: Creatinine, Serum 0.67 mg/dL (0.51-0.95); Magnesium 1.5 mg/dL (1.9-2.7); Potassium 3.9 mmol/L (3.5-5.0); eGFR CKD-EPI 118.3 (>60)
[2024-07-11] MEDS: SMOG Enema (MgOH-NS-Gly-MinO) 330 ML ENEMA PR ONE (14:21)
[2024-07-11 14:41] LABS: Calcium 9.1 mg/dL (8.6-10.3); Creatinine, Serum 0.66 mg/dL (0.51-0.95); Magnesium 1.5 mg/dL (1.9-2.7); Potassium 4.1 mmol/L (3.5-5.0); eGFR CKD-EPI 118.7 (>60)
[2024-07-11] MEDS: Morphine 2 MG/ML SYRINGE IV PRN (18:12)
[2024-07-12 07:16] LABS: Hematocrit 28.4 % (35-45); Hemoglobin 9.5 g/dL (11.5-14.3); Mean Corpuscular Hemoglobin 33.1 pg (27-33); Mean Corpuscular Hgb Conc 33.7 g/dL (31-36); Mean Corpuscular Volume 98.4 fL (80-97); Mean Platelet Volume 8.5 fL (7.5-11.2); Platelet Count 193 10^3/uL (150-450); Red Blood Count 2.88 10^6/uL (3.63-4.92); Red Cell Distribution Width 16.8 % (12-17); White Blood Count 4.3 10^3/uL (3.8-11.8)
[2024-07-12 07:28] LABS: Albumin 2.8 g/dL (3.2-5.2); Albumin/Globulin Ratio 1.3 (1-3); Calcium 9.2 mg/dL (8.6-10.3); Creatinine, Serum 0.71 mg/dL (0.51-0.95); Globulin 2.1 g/dL (2-4); Magnesium 1.4 mg/dL (1.9-2.7); Potassium 4.1 mmol/L (3.5-5.0); Total Bilirubin 0.3 mg/dL (0.2-1.0); Total Protein 4.9 g/dL (6.4-8.9); eGFR CKD-EPI 115.1 (>60)
[2024-07-13 06:36] LABS: ABS Eosinophils 0.2 10^3/uL (0.0-0.5); ABS Lymphocytes 1.8 10^3/uL (1.0-4.8); ABS Monocytes 0.6 10^3/uL (0.0-0.9); ABS Neutrophils 1.8 10^3/uL (1.5-7.6); Eosinophil % 3.5 %; Hematocrit 28.3 % (35-45); Hemoglobin 9.6 g/dL (11.5-14.3); Lymphocyte % 41.1 %; Mean Corpuscular Hemoglobin 33.4 pg (27-33); Mean Corpuscular Volume 98.1 fL (80-97); Mean Platelet Volume 8.2 fL (7.5-11.2); Nucleated Red Blood Cells % 0.1 %/100WBC (0.0-0.8); Platelet Count 232 10^3/uL (150-450); Red Blood Count 2.88 10^6/uL (3.63-4.92); Red Cell Distribution Width 16.7 % (12-17); White Blood Count 4.4 10^3/uL (3.8-11.8)
[2024-07-13 06:50] LABS: Creatinine, Serum 0.63 mg/dL (0.51-0.95); Magnesium 1.5 mg/dL (1.9-2.7); Potassium 4.2 mmol/L (3.5-5.0)
[2024-07-13 08:13] LABS: Phosphorus 5.4 mg/dL (2.5-5.0)
[2024-07-14 06:15] LABS: Hematocrit 28.3 % (35-45); Hemoglobin 9.8 g/dL (11.5-14.3); Mean Corpuscular Hemoglobin 33.7 pg (27-33); Mean Corpuscular Hgb Conc 34.5 g/dL (31-36); Mean Corpuscular Volume 97.6 fL (80-97); Mean Platelet Volume 8.1 fL (7.5-11.2); Platelet Count 258 10^3/uL (150-450); Red Cell Distribution Width 16.6 % (12-17); White Blood Count 4.1 10^3/uL (3.8-11.8)
[2024-07-14 06:40] LABS: Calcium 9.3 mg/dL (8.6-10.3); Creatinine, Serum 0.61 mg/dL (0.51-0.95); Magnesium 1.5 mg/dL (1.9-2.7); Phosphorus 5.8 mg/dL (2.5-5.0); Potassium 4.3 mmol/L (3.5-5.0)
[2024-07-14] MEDS: Magnesium Sulf 4 GM/100 ML IV 4,000 MG/100 ML BAG IVPB ONE (08:14)
[2024-07-14 13:35] VITALS: BP 90/67
== END 2024-07-14 17:19 | disposition home or self-care (01) | DRG 775 ==
LOC: EDHOLD 17:37 → ED 17:37 → SUATTDRO 07-03 05:00 → MEDTELE 07-03 14:03 → SUATTDRO 07-07 09:10
PROVIDERS: ADMIT Student in an Organized Health Care Education/Training Program; ATTEND Student in an Organized Health Care Education/Training Program